=== PATIENT | female | born 1995 | race African-American/Black ===

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

== ENCOUNTER 2017-01-12 16:54 | Inpatient (IN) | payer MEDICAID ==
[2017-01-12] VITALS (8 sets, daily range): BP systolic 124–130; BP diastolic 63–81; PULSE 61–97; RESP 14–28; TEMP 98.2–98.7; O2SAT 97–100
[~2017-01-12] VITALS: Ht 165.1 cm; Wt 55.2 kg
[~2017-01-12 16:54] MED LIST changes: +ASPI325T PO; -AZIT500T2 PO; +FOLI1TAB6 PO; +HYDR500C PO; +KETO10 PO; -MAGICPED SWISH-SPIT; +MONT10TA4 PO; +OXYC1TAB36 PO; +SENN1TAB PO; +VENTAER INH; +WALKER/FOLDING1 MIS
--- NOTE | 2017-01-12 17:03 | PD ---
Physical Exam Time Seen by Provider: 17:01 Narrative 21yo F c/o sickle cell crisis since 1pm. Pain in BUE and BLE. +vomiting, just started. Unknown fevers. Denies chest pain. +SOB. Patient seen in triage. VS reviewed. Awaiting bed placement. Data Data Last Documented VS Vital Signs Date Time Temp Pulse Resp B/P (MAP) Pulse Ox O2 Delivery O2 Flow Rate FiO2 01/12/17 16:57 98.7 88 28 130/69 (89) 100 Room Air MDM Supervised Visit with IRENE: Yahsira Mathur Jan 12, 2017 17:02
[2017-01-12] MEDS ORDERED: SODIUM CHLOR 0.9% 1000 ML INJ 1,000 ML IV ONE ×2 (17:28→19:15)
[2017-01-12] MEDS ORDERED: ONDANSETRON HCL 4 MG/2 ML VIAL IVP ONE (17:30)
[2017-01-12] MEDS ORDERED: HYDROmorphone HCL PF 1 MG/ML VIAL IVS ONE (17:30)
[2017-01-12] MEDS ORDERED: SODIUM CHLORIDE 0.9% FLUSH 10 ML FLUSH IVF PRN (17:30)
--- NOTE | 2017-01-12 17:34 | PD ---
HPI Chief Complaint: Sickle Cell Time Seen by Provider: 17:33 Travel History International Travel<30 days: No Contact w/Intl Traveler<30days: No Traveled to known affect area: No History of Present Illness HPI 21-year-old female with history of sickle cell disease presents to the ED for evaluation of 10/10 left lower extremity and right upper extremity pain. Onset around 1 PM today. Patient endorses accompanying nausea. She denies chest pain , shortness of breath, abdominal pain, dysuria. She states that she's had similar pain crisis in the past. Endorses adequate hydration over the last couple days. PFSH Past Medical History Asthma: Yes Heart Rhythm Problems: No Cancer: No Cardiovascular Problems: No Congestive Heart Failure: No Cerebrovascular Accident: Yes (hx of ministrokes) Endocrine: No Genitourinary: No Immune Disorder: No Musculoskeletal: No Neurologic: Yes (brain sx) Psychiatric: No Reproductive: No Respiratory: Yes Migraines: No Seizures: No Sickle Cell Disease: Yes ?: Not Past Surgical History Abdominal Surgery: Yes (hernia repair 4 years old) Body Medical Devices: peircings Social History Alcohol Use: No Tobacco Use: No Substance Use: No Allergies-Medications (Allergen,Severity, Reaction): Coded Allergies: amoxicillin (Unverified Allergy, Intermediate, hives, 12/27/16) Reported Meds & Prescriptions Reported Meds & Active Scripts Active Bactrim DS (Sulfamethoxazole-Trimethoprim) 800-160 Mg Tab 1 Tab PO BID Senna Plus 8.6-50 mg (Sennosides-Docusate Sodium) 1 Tab Tab 2 Tab PO BID Oxycodone-Acetaminophen 10-325 mg Tab 1 Tab PO Q4H PRN Montelukast (Montelukast Sodium) 10 Mg Tab 10 Mg PO HS Ketorolac (Ketorolac Tromethamine) 10 Mg Tab 10 Mg PO Q6HR Hydrea (Hydroxyurea) 500 Mg Cap 500 Mg PO DAILY Folic Acid 1 Mg Tablet 1 Mg PO DAILY Ventolin Hfa 18 GM Inh (Albuterol Sulfate) 90 Mcg/Act Aer 2 Puff INH Q4H PRN Aspirin 325 Mg Tab 325 Mg PO DAILY Ibuprofen 800 Mg Tab 800 Mg PO Q8H PRN Review of Systems Except as stated in HPI: all other systems reviewed are Neg Physical Exam Narrative GENERAL: Well-nourished, well-developed black female in no acute distress. SKIN: Focused skin assessment warm/dry. HEAD: Normocephalic. EYES: No scleral icterus. No injection or drainage. NECK: Supple, trachea midline. No JVD or lymphadenopathy. CARDIOVASCULAR: Regular rate and rhythm without murmurs, gallops, or rubs. RESPIRATORY: Breath sounds clear and equal bilaterally. No accessory muscle use. GASTROINTESTINAL: Abdomen soft, non-tender, nondistended. MUSCULOSKELETAL: No cyanosis, or edema. Ambulates with a normal gait. FOCUSED RIGHT UPPER EXTREMITY EXAM: 2+ RADIAL PULSE. MILD TENDERNESS TO PALPATION OF THE SHOULDER. STRENGTH 5/5. NEUROVASCULARLY INTACT. FOCUSED LEFT LOWER EXTREMITY EXAM: 2+ DP pulse. Tender to palpation of the right knee. Strength 5/5. Sensation intact to light touch distally. BACK: Nontender without obvious deformity. No CVA tenderness. Data Data Last Documented VS Vital Signs Date Time Temp Pulse Resp B/P (MAP) Pulse Ox O2 Delivery O2 Flow Rate FiO2 01/12/17 22:28 22 99 Nasal Cannula 2.00 01/12/17 22:01 73 01/12/17 16:57 98.7 Orders Orders C-Reactive Protein (Crp) (01/12/17 17:28) Complete Blood Count With Diff (01/12/17 17:28) Comprehensive Metabolic Panel (01/12/17 17:28) Retic Count (01/12/17 17:28) Urinalysis - C+S If Indicated (01/12/17 17:28) Chest, Single Ap (01/12/17 17:28) Ecg Monitoring (01/12/17 17:28) Iv Access Insert/Monitor (01/12/17 17:28) Oximetry (01/12/17 17:28) Ondansetron Inj (Zofran Inj) (01/12/17 17:30) Sodium Chloride 0.9% Flush (Ns Flush) (01/12/17 17:30) Sodium Chlor 0.9% 1000 Ml Inj (Ns 1000 M (01/12/17 17:28) Hydromorphone Pf Inj (Dilaudid Pf Inj) (01/12/17 17:30) Ed Urine Pregnancytest Poc (01/12/17 17:28) Urine Culture (01/12/17 18:10) Hydromorphone Pf Inj (Dilaudid Pf Inj) (01/12/17 19:15) Sodium Chlor 0.9% 1000 Ml Inj (Ns 1000 M (01/12/17 19:15) Sulfamet-Trimeth Ds 800-160 Mg (Bactrim (01/12/17 19:15) Hydromorphone Pf Inj (Dilaudid Pf Inj) (01/12/17 20:30) Hydromorphone Pf Inj (Dilaudid Pf Inj) (01/12/17 21:45) Admit To Inpatient (01/12/17 ) Admit Order (Ed Use Only) (01/12/17 22:29) Vital Signs (Adult) Q4H (01/12/17 22:29) Activity Oob With Assistance (01/12/17 22:29) Corrosion Prevention Metal Sprayer / Telemetry .CONTINUOUS (01/12/17 22:29) Diet Heart Healthy (01/13/17 Breakfast) Sodium Chloride 0.9% Flush (Ns Flush) (01/12/17 22:30) Sodium Chloride 0.9% Flush (Ns Flush) (01/13/17 09:00) Ondansetron Inj (Zofran Inj) (01/12/17 22:30) Basic Metabolic Panel (Bmp) (01/13/17 06:00) Complete Blood Count With Diff (01/13/17 06:00) Case Management Consult (01/12/17 22:29) Naloxone Inj (Narcan Inj) (01/12/17 22:30) Inpatient Certification (01/12/17 ) Sodium Chlor 0.9% 1000 Ml Inj (Ns 1000 M (01/12/17 22:30) Hydromorphone Pf Inj (Dilaudid Pf Inj) (01/12/17 22:45) Labs Laboratory Tests Test 01/12/17 18:00 01/12/17 18:10 White Blood Count 12.5 TH/MM3 Red Blood Count 2.14 MIL/MM3 Hemoglobin 8.4 GM/DL Hematocrit 23.8 % Mean Corpuscular Volume 111.4 FL Mean Corpuscular Hemoglobin 39.2 PG Mean Corpuscular Hemoglobin Concent 35.2 % Red Cell Distribution Width 20.1 % Platelet Count 309 TH/MM3 Mean Platelet Volume 8.5 FL Neutrophils (%) (Auto) 80.5 % Lymphocytes (%) (Auto) 12.4 % Monocytes (%) (Auto) 6.8 % Eosinophils (%) (Auto) 0.0 % Basophils (%) (Auto) 0.3 % Neutrophils # (Auto) 10.1 TH/MM3 Lymphocytes # (Auto) 1.6 TH/MM3 Monocytes # (Auto) 0.9 TH/MM3 Eosinophils # (Auto) 0.0 TH/MM3 Basophils # (Auto) 0.0 TH/MM3 CBC Comment AUTO DIFF Differential Comment AUTO DIFF CONFIRMED Platelet Estimate NORMAL Platelet Morphology Comment NORMAL Sickle Cells 1+ Target Cells 1+ Stomatocytes 1+ Reticulocyte Count 6.1 % Absolute Reticulocyte Count 131.3 MIL/L Blood Urea Nitrogen 6 MG/DL Creatinine 0.65 MG/DL Random Glucose 117 MG/DL Total Protein 7.9 GM/DL Albumin 4.1 GM/DL Calcium Level 8.8 MG/DL Alkaline Phosphatase 93 U/L Aspartate Amino Transf (AST/SGOT) 36 U/L Alanine Aminotransferase (ALT/SGPT) 35 U/L Total Bilirubin 1.6 MG/DL Sodium Level 139 MEQ/L Potassium Level 3.5 MEQ/L Chloride Level 105 MEQ/L Carbon Dioxide Level 24.7 MEQ/L Anion Gap 9 MEQ/L Estimat Glomerular Filtration Rate 142 ML/MIN C-Reactive Protein LESS THAN 0.29 MG/DL Urine Color YELLOW Urine Turbidity HAZY Urine pH 7.0 Urine Specific Holden 1.013 Urine Protein NEG mg/dL Urine Glucose (UA) NEG mg/dL Urine Ketones NEG mg/dL Urine Occult Blood NEG Urine Nitrite POS Urine Bilirubin NEG Urine Urobilinogen 2.0 MG/DL Urine Leukocyte Esterase SMALL Urine RBC LESS THAN 1 /hpf Urine WBC 3 /hpf Urine Squamous Epithelial Cells 2 /hpf Urine Bacteria MANY /hpf Microscopic Urinalysis Comment CULTURE INDICATED MDM Medical Decision Making Medical Screen Exam Complete: Yes Emergency Medical Condition: Yes Differential Diagnosis sickle cell pain crisis versus dehydration versus bone infarct versus opioid withdrawal versus other Narrative Course 21-year-old female with history of sickle cell disease presents to the ED for evaluation of 10/10 left lower extremity and right upper extremity pain. Onset around 1 PM today. Patient endorses accompanying nausea. She denies chest pain , shortness of breath, abdominal pain, dysuria. She states that she's had similar pain crisis in the past. Endorses adequate hydration over the last couple days. Vitals reviewed. Physical exam reveals mild tenderness to palpation of the right shoulder and the left knee is otherwise unremarkable. IV is established. Patient was administered 1 L of normal saline and 1 mg Dilaudid. CBC: WBC 12.5. RBCs 2.14. Hemoglobin 8.4. Hematocrit 23.8. Reticulocyte count 6.1. Absolute reticulocyte count 131.3 CMP: No concerning abnormalities. UA: Nitrate positive. Small leukocyte esterase. Many bacteria. She was administered single dose of Bactrim DS. On recheck patient states pain is only minimally improved. She was administered second liter of fluids and a second milligram of Dilaudid. On third recheck patient states her pain is 5/10. She was administered 0.5 mg of Dilaudid. On fourth recheck patient states her pain is now a 7. She was administered 0.5 mg Dilaudid. The nurse reports that the patient states that "whatever you gave me made my pain worse." This is sickle cell pain crisis, intractable pain, UTI. I have observed her to ambulate normally twice since she 's been here. I have low suspicion for a bone infarct. She'll be admitted for pain control. I spoke with Dr. Pereira who agrees to accept the patient. Please see medicine notes for disposition. Additional Instructions: Rest, hydrate. Resume normal, gentle activities as tolerated. Take all antibiotics as prescribed. Return to the ED for any urgent or emergent medical condition. Med/Other Pt SpecificInfo: Prescription(s) given Scripts Sulfamethoxazole-Trimethoprim (Bactrim DS) 800-160 Mg Tab 1 TAB PO BID for Infection, #6 TAB 0 Refills Prov: Nessa Billings DO 01/12/17 Bere Cabezas Jan 12, 2017 17:34
--- NOTE | 2017-01-12 17:51 | RADRPT ---
EXAM DATE/TIME: 01/12/2017 17:41 [place] COMPARISON: CHEST SINGLE AP, October 23, 2016, 13:51. INDICATIONS : Chest pain, overall body pain. Sickle cell. MEDICAL HISTORY : Sickle Cell disease. CVA. Asthma. Blood dyscrasias. SURGICAL HISTORY : Brain surgery. Hernia repair. ENCOUNTER: Initial ACUITY: 1 day PAIN SCORE: 5/10 LOCATION: Bilateral chest FINDINGS: A single view of the chest demonstrates the lungs to be symmetrically aerated without evidence of mas s, infiltrate or effusion. The cardiomediastinal contours are unremarkable. Osseous structures are intact. The left-sided Cvmeba-h-Lgyf catheter remains in place. There are bilateral nipple rings note d. CONCLUSION: No acute disease. Matt Carpio MD on January 12, 2017 at 17:49 Board Certified Radiologist. This report was verified electronically.
[2017-01-12 18:29] LABS: BACTERIA, URINE MANY /hpf; BLOOD, URINE NEG (NEG); COMMENT (UR) CULTURE INDICATED; CULTURE IF INDICATED CULTURE INDICATED; GLUCOSE,URINE NEG (NEG); KETONE, URINE NEG (NEG); NITRITE,URINE POS (NEG); SQUAMOUS EPITHELIAL CELL URINE 2 /hpf (0-5); URINE COLOR YELLOW (YELLW/STRAW)
[2017-01-12 18:41] LABS: AUTOMATED NEUTROPHIL # 10.1 TH/MM3 (1.8-7.7); BASOPHIL % 0.3 % (0.0-2.0); HEMATOCRIT 23.8 % (35.0-46.0); LYMPH % 12.4 % (9.0-44.0); LYMPHOCYTE # 1.6 TH/MM3 (1.0-4.8); MEAN CELL VOLUME 111.4 FL (80.0-100.0); MEAN CORPUSCULAR HEMOGLOBIN 39.2 PG (27.0-34.0); MEAN CORPUSCULAR HGB CONC 35.2 % (32.0-36.0); MONO % 6.8 % (0.0-8.0); NEUT % 80.5 % (16.0-70.0); PLATELET COUNT 309 TH/MM3 (150-450); RED BLOOD COUNT 2.14 MIL/MM3 (4.00-5.30); RED CELL DISTRIBUTION WIDTH 20.1 % (11.6-17.2); RETIC % 6.1 % (0.4-3.0); WHITE BLOOD COUNT 12.5 TH/MM3 (4.0-11.0)
[2017-01-12 18:48] LABS: HEMO FLAGS AUTO DIFF; REVIEW FLAG AUTO DIFF
[2017-01-12 18:49] LABS: ALT (GPT) 35 U/L (9-42); ANION GAP 9 MEQ/L (5-15); AST (GOT) 36 U/L (16-38); BICARBONATE 24.7 MEQ/L (21.0-32.0); BLOOD UREA NITROGEN 6 MG/DL (7-18); CHLORIDE 105 MEQ/L (98-107); GLOMERULAR FILTRATION RATE 142 ML/MIN (>89); POTASSIUM 3.5 MEQ/L (3.5-5.1); SODIUM (NA) 139 MEQ/L (136-145)
[2017-01-12 18:51] LABS: ALKALINE PHOSPHATASE 93 U/L (45-117); TOTAL BILIRUBIN ADULT 1.6 MG/DL (0.2-1.0)
[2017-01-12] MEDS ORDERED: HYDROmorphone HCL PF 1 MG/ML VIAL IV PUSH ONE ×3 (19:15→21:45)
[2017-01-12] MEDS ORDERED: SULFAMETHOXAZOLE-TRIMETHOPRIM DS 800-160 MG TAB PO ONE (19:15)
[2017-01-12 19:33] LABS: TARGET CELLS 1+ (NORMAL)
[2017-01-12 19:34] LABS: PLATELET ESTIMATE SMEAR NORMAL (NORMAL); PLATELET MORPHOLOGY NORMAL (NORMAL); SCAN/DIFF AUTO DIFF CONFIRMED; SICKLE CELLS 1+ (NORMAL); STOMATOCYTES 1+ (NORMAL)
[2017-01-12] MEDS ORDERED: BACT800T5 PO (20:21)
[2017-01-12] MEDS ORDERED: ONDANSETRON HCL 4 MG/2 ML VIAL IVP PRN (22:30)
[2017-01-12] MEDS ORDERED: NALOXONE HCL 0.4 MG/ML AMP IV PRN (22:30)
[2017-01-12] MEDS: SODIUM CHLOR 0.9% 1000 ML INJ 1,000 ML IV SCH (22:44)
[2017-01-12] MEDS ORDERED: HYDROmorphone HCL PF 1 MG/ML VIAL IV PUSH PRN (22:45)
[2017-01-13] VITALS (9 sets, daily range): BP systolic 134–176; BP diastolic 68–85; PULSE 75–97; RESP 17–18; TEMP 98–99.2; O2SAT 98–100
[2017-01-13] MEDS ORDERED: ACETAMINOPHEN/HYDROcodone 325 MG/5 MG TAB PO PRN (01:30)
[2017-01-13] MEDS ORDERED: HYDROmorphone HCL PF 1 MG/ML VIAL IV PUSH ONE (01:30)
--- NOTE | 2017-01-13 04:58 | HHI.HP ---
[facility] Service [facility] Hospitalists Primary Care Physician Non-Staff Admission Diagnosis sickle cell crisis, intractable pain, UTI Diagnoses: Chief Complaint: Whole body pain Travel History International Travel<30 Days: No Contact w/Intl Traveler <30 Da: No Traveled to Known Affected Are: No History of Present Illness 21-year-old female with a history of sickle cell anemia, mini strokes with right -sided residual, and asthma presented to the ED with complaints of pain. Patient describes the pain as an aching 10 out of 10 pain all over worse in her knees. Patient states for the last 6 months she has been having more sickle cell crisis pain and she has in the past. Prior to this she was getting prophylactic blood transfusions, that were discontinued due to iron overload. She denies any other associated symptoms, denies any chest pain, shortness of breath, fever or chills. She states the Dilaudid is not helping and that usually morphine helps better. Her grinder outside diameter that she follows is in [place]. Past Family Social History Past Medical History Sickle cell Asthma Mini strokes Past Surgical History Patient had brain surgery when she was in fourth or fifth grade. Umbilical hernia repair Reported Medications Reported Meds & Active Scripts Active Bactrim DS (Sulfamethoxazole-Trimethoprim) 800-160 Mg Tab 1 Tab PO BID Senna Plus 8.6-50 mg (Sennosides-Docusate Sodium) 1 Tab Tab 2 Tab PO BID Oxycodone-Acetaminophen 10-325 mg Tab 1 Tab PO Q4H PRN Montelukast (Montelukast Sodium) 10 Mg Tab 10 Mg PO HS Ketorolac (Ketorolac Tromethamine) 10 Mg Tab 10 Mg PO Q6HR Hydrea (Hydroxyurea) 500 Mg Cap 500 Mg PO DAILY Folic Acid 1 Mg Tablet 1 Mg PO DAILY Ventolin Hfa 18 GM Inh (Albuterol Sulfate) 90 Mcg/Act Aer 2 Puff INH Q4H PRN Aspirin 325 Mg Tab 325 Mg PO DAILY Ibuprofen 800 Mg Tab 800 Mg PO Q8H PRN Allergies: Coded Allergies: amoxicillin (Unverified Allergy, Intermediate, hives, 12/27/16) Active Ordered Medications Current Medications Medications (Trade) Dose Ordered Sig/Jessy Route Start Time Stop Time Status Last Admin (NS Flush) 2 ml UNSCH PRN IV FLUSH 01/12/17 22:30 (NS Flush) 2 ml BID IV FLUSH 01/13/17 09:00 (Zofran Inj) 4 mg Q6H PRN IVP 01/12/17 22:30 (Narcan Inj) 0.4 mg UNSCH PRN IV 01/12/17 22:30 Sodium Chloride 1,000 ml @ 125 mls/hr Q8H IV 01/12/17 22:30 01/12/17 22:44 (Dilaudid Pf Inj) 0.5 mg Q4H PRN IV PUSH 01/12/17 22:45 01/12/17 23:35 (Bradford 5-325 Mg) 1 tab Q4H PRN PO 01/13/17 01:30 01/13/17 02:38 Family History Mom:hypertension Maternal grandmother had breast cancer twice and diabetes. Maternal grandfather of pancreatic cancer, also had diabetes, hypertension , CABG. Social History Patient denies any tobacco, alcohol or illicit drug use Physical Exam Vital Signs Vital Signs Date Time Temp Pulse Resp B/P (MAP) Pulse Ox O2 Delivery O2 Flow Rate FiO2 01/13/17 03:42 16 01/13/17 02:42 16 01/13/17 01:05 16 01/12/17 23:54 01/12/17 23:34 97 18 126/63 (84) 100 Nasal Cannula 2.00 01/12/17 22:35 18 01/12/17 22:28 22 99 Nasal Cannula 2.00 01/12/17 22:01 73 24 128/70 (89) 97 Room Air 01/12/17 21:25 20 01/12/17 20:55 90 20 124/81 (95) 98 Room Air 01/12/17 20:00 19 01/12/17 19:25 69 25 128/72 (90) 100 Room Air 01/12/17 18:05 (91) Room Air 01/12/17 18:01 77 12 98 01/12/17 18:01 61 14 129/72 (91) 100 01/12/17 16:57 98.7 88 28 130/69 (89) 100 Room Air Physical Exam GENERAL: This is a well-nourished, thin patient who appears to be in the pain SKIN: No rashes, ecchymoses or lesions. Cool and dry. HEAD: Atraumatic. Normocephalic. EYES: Pupils equal round and reactive. Extraocular motions intact. ENT: Nose without bleeding, purulent drainage or septal hematoma. Airway patent. NECK: Trachea midline. No JVD or lymphadenopathy. Supple, nontender, no meningeal signs. CARDIOVASCULAR: Regular rate and rhythm without murmurs, gallops, or rubs. RESPIRATORY: Clear to auscultation. Breath sounds equal bilaterally. No wheezes , rales, or rhonchi. GASTROINTESTINAL: Abdomen soft, non-tender, nondistended. MUSCULOSKELETAL: Extremities without clubbing, cyanosis, or edema. Bilateral knee pain No calf tenderness. NEUROLOGICAL: Awake and alert.Motor and sensory grossly within normal limits. Normal speech. Laboratory Laboratory Tests Test 01/12/17 18:00 01/12/17 18:10 White Blood Count 12.5 Red Blood Count 2.14 Hemoglobin 8.4 Hematocrit 23.8 Mean Corpuscular Volume 111.4 Mean Corpuscular Hemoglobin 39.2 Mean Corpuscular Hemoglobin Concent 35.2 Red Cell Distribution Width 20.1 Platelet Count 309 Mean Platelet Volume 8.5 Neutrophils (%) (Auto) 80.5 Lymphocytes (%) (Auto) 12.4 Monocytes (%) (Auto) 6.8 Eosinophils (%) (Auto) 0.0 Basophils (%) (Auto) 0.3 Neutrophils # (Auto) 10.1 Lymphocytes # (Auto) 1.6 Monocytes # (Auto) 0.9 Eosinophils # (Auto) 0.0 Basophils # (Auto) 0.0 CBC Comment AUTO DIFF Differential Comment AUTO DIFF CONFIRMED Platelet Estimate NORMAL Platelet Morphology Comment NORMAL Sickle Cells 1+ Target Cells 1+ Stomatocytes 1+ Reticulocyte Count 6.1 Absolute Reticulocyte Count 131.3 Blood Urea Nitrogen 6 Creatinine 0.65 Random Glucose 117 Total Protein 7.9 Albumin 4.1 Calcium Level 8.8 Alkaline Phosphatase 93 Aspartate Amino Transf (AST/SGOT) 36 Alanine Aminotransferase (ALT/SGPT) 35 Total Bilirubin 1.6 Sodium Level 139 Potassium Level 3.5 Chloride Level 105 Carbon Dioxide Level 24.7 Anion Gap 9 Estimat Glomerular Filtration Rate 142 C-Reactive Protein LESS THAN 0.29 Urine Color YELLOW Urine Turbidity HAZY Urine pH 7.0 Urine Specific [place] 1.013 Urine Protein NEG Urine Glucose (UA) NEG Urine Ketones NEG Urine Occult Blood NEG Urine Nitrite POS Urine Bilirubin NEG Urine Urobilinogen 2.0 Urine Leukocyte Esterase SMALL Urine RBC LESS THAN 1 Urine WBC 3 Urine Squamous Epithelial Cells 2 Urine Bacteria MANY Microscopic Urinalysis Comment CULTURE INDICATED Date/Time Source Procedure Growth Status 01/12/17 18:10 Urine Random Urine Urine Culture Pending Worksheet Result Diagram: 01/12/17 1800 01/12/17 1800 Imaging Last Impressions Chest X-Ray 01/12/17 1728 Signed Impressions: Service Date/Time: December 17:41 - CONCLUSION: No acute disease. MD Jose Saldana VTE Risk Assessment Jose VTE Risk Assessment: No/Low Risk (score <= 1) Caprini Risk Assessment Model Point Value = 1 Point Value = 2 Point Value = 3 Point Value = 5 Age 41-60 Minor surgery BMI > 25 kg/m2 Swollen legs Varicose veins or History of unexplained or recurrent spontaneous Oral contraceptives or hormone replacement Sepsis (< 1 month) Serious lung disease, including pneumonia (< 1 month) Abnormal pulmonary function Acute myocardial infarction Congestive heart failure (< 1 month) History of inflammatory bowel disease Medical patient at bed rest Age 61-74 Arthroscopic surgery Major open surgery (> 45 min) Laparoscopic surgery (> 45 min) Malignancy Confined to bed (> 72 hours) Immobilizing plaster cast Central venous access Age >= 75 History of VTE Family history of VTE Factor V Leiden Prothrombin [id number] Lupus anticoagulant Anticardiolipin antibodies Elevated serum homocysteine Heparin-induced thrombocytopenia Other congenital or acquired thrombophilia Stroke (< 1 month) Elective arthroplasty Hip, pelvis, or leg fracture Acute spinal cord injury (< 1 month) Prophylaxis Regimen Total Risk Factor Score Risk Level Prophylaxis Regimen 0-1 Low Early ambulation 2 Moderate Order ONE of the following: *Sequential Compression Device (SCD) *Heparin 5000 units SQ BID 3-4 Higher Order ONE of the following medications: *Heparin 5000 units SQ TID *Enoxaparin/Lovenox 40 mg SQ daily (WT < 150 kg, CrCl > 30 mL/min) *Enoxaparin/Lovenox 30 mg SQ daily (WT < 150 kg, CrCl > 10-29 mL/min) *Enoxaparin/Lovenox 30 mg SQ BID (WT < 150 kg, CrCl > 30 mL/min) AND/OR *Sequential Compression Device (SCD) 5 or more Highest Order ONE of the following medications: *Heparin 5000 units SQ TID (Preferred with Epidurals) *Enoxaparin/Lovenox 40 mg SQ daily (WT < 150 kg, CrCl > 30 mL/min) *Enoxaparin/Lovenox 30 mg SQ daily (WT < 150 kg, CrCl > 10-29 mL/min) *Enoxaparin/Lovenox 30 mg SQ BID (WT < 150 kg, CrCl > 30 mL/min) AND *Sequential Compression Device (SCD) Assessment and Plan Problem List: (1) Sickle cell pain crisis ICD Code: D57.00 - Hb-SS disease with crisis, unspecified Status: Acute (2) Asthma ICD Code: J45.909 - Unspecified asthma, uncomplicated Status: Chronic (3) Urinary tract infection ICD Code: N39.0 - Urinary tract infection, site not specified Status: Acute Assessment and Plan 21-year-old female with a history of sickle cell anemia, mini strokes with right -sided residual, and asthma presented to the ED with complaints of pain. Sickle cell pain crisis, hemoglobin stable, hemoglobin stable at 8.4 -Pain management with IV morphine and by mouth Percocet, and Toradol for breakthrough pain -IVF for hydration -Resume home medications -Will consult hematology if if there is a decrease in hemoglobin or no improvement pain UTI, with associated leukocytosis, WBC is 12.5, abnormal UA with small amount of leukocyte esterase and positive nitrates -Urine culture pending -Continue Bactrim by mouth bid Asthma, chronic -Reorder home medications DVT prophylaxis: SCDs Discussed Condition With Patient and patient's mother Physician Certification 2 Midnight Certification Type: Admission for Inpatient Services Order for Inpatient Services The services are ordered in accordance with Medicare regulations or non- Medicare payer requirements, as applicable. In the case of services not specified as inpatient-only, they are appropriately provided as inpatient services in accordance with the 2-midnight benchmark. Estimated LOS (days): 2 days is the estimated time the patient will need to remain in the hospital, assuming treatment plan goals are met and no additional complications. Post-Hospital Plan: Home Problem Qualifiers (1) Urinary tract infection: Qualified Codes: N39.0 - Urinary tract infection, site not specified Pilar Gupta Jan 13, 2017 04:58
[2017-01-13] MEDS ORDERED: ALBUTEROL SULFATE 90 MCG/ACT HFA 8 GM INHALER INH PRN (05:00)
[2017-01-13] MEDS ORDERED: MORPHINE SULFATE 4 MG/ML INJ IV PUSH PRN (05:00)
[2017-01-13] MEDS: SODIUM CHLOR 0.9% 1000 ML INJ 1,000 ML IV SCH (05:20)
[2017-01-13] MEDS: KETOROLAC TROMETHAMINE 30 MG/ML (IVP) VIAL IV PUSH PRN ×3 (06:20→22:30)
[2017-01-13] MEDS: oxyCODONE/ACETAMINOPHEN 10 MG/325 MG TAB PO PRN ×3 (06:23→18:43)
[2017-01-13 07:46] LABS: AUTOMATED NEUTROPHIL # 11.2 TH/MM3 (1.8-7.7); BASOPHIL # 0.1 TH/MM3 (0-0.2); BASOPHIL % 0.4 % (0.0-2.0); EOSINOPHIL % 0.2 % (0.0-4.0); HEMATOCRIT 24.9 % (35.0-46.0); LYMPH % 12.8 % (9.0-44.0); LYMPHOCYTE # 1.9 TH/MM3 (1.0-4.8); MEAN CELL VOLUME 112.3 FL (80.0-100.0); MEAN CORPUSCULAR HGB CONC 33.9 % (32.0-36.0); MONO % 11.2 % (0.0-8.0); NEUT % 75.4 % (16.0-70.0); PLATELET COUNT 286 TH/MM3 (150-450); RED BLOOD COUNT 2.22 MIL/MM3 (4.00-5.30); RED CELL DISTRIBUTION WIDTH 19.8 % (11.6-17.2); WHITE BLOOD COUNT 14.9 TH/MM3 (4.0-11.0)
[2017-01-13 07:54] LABS: HEMO FLAGS AUTO DIFF
[2017-01-13 08:05] LABS: POTASSIUM 3.7 MEQ/L (3.5-5.1)
[2017-01-13] MEDS: SODIUM CHLORIDE 0.9% FLUSH 10 ML FLUSH IV FLUSH SCH ×2 (08:06→22:29)
[2017-01-13] MEDS: SULFAMETHOXAZOLE-TRIMETHOPRIM DS 800-160 MG TAB PO SCH ×2 (08:06→23:31)
[2017-01-13] MEDS: ASPIRIN 325 MG TAB PO SCH (08:06)
[2017-01-13] MEDS: FOLIC ACID 1 MG TAB PO SCH (08:06)
[2017-01-13] MEDS: HYDROXYUREA 500 MG CAP PO SCH (08:08)
[2017-01-13] MEDS: MORPHINE SULFATE 4 MG/ML INJ IV PUSH PRN ×5 (08:40→23:24)
--- NOTE | 2017-01-13 08:44 | HHI.PR ---
Addendum to Inpatient Note Addendum Reason: Additional Documentation Additional Information Pt states that she continues to have pain w minimal improvement since admission. 09/21 but hasn't been able to get out of bed due to pain, no appetite. Pain mainly in knees and upper extremities. No chest pain, no nausea or vomiting. Family at bedside, tell me that pt used to get blood transfusion every other month however this was stopped and since she has been getting frequent attacks. on exam, she is laying in bed, looks miserable and tired, barely moves. HR mildly tachycardic, lungs are clear, abdomen soft NT. She does move her extremities but very slowly secondary to pain A/P 21-year-old female with a history of sickle cell anemia, mini strokes with right -sided residual, and asthma presented to the ED with complaints of pain. Sickle cell pain crisis, hemoglobin stable, hemoglobin stable at 8.4 -Pain management with IV morphine and by mouth Percocet, and Toradol for breakthrough pain -continue IVF for hydration, encouraged PO intake. She is on her home meds as well. 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 Hb stable at 8.4 today. UTI, with associated leukocytosis, WBC is 14.9 today, abnormal UA with small amount of leukocyte esterase and positive nitrates -Urine culture pending -Continue Bactrim by mouth bid Asthma, chronic -on home meds. Mamie Francis MD Jan 13, 2017 08:44
[2017-01-13 08:59] LABS: BANDS 3 % (0-6); CORRECTED NUCLEATED RBC 4 /100 WBC (0-0); NEUTROPHIL # MANUAL DIFF 11.6 TH/MM3 (1.8-7.7); POLYS (SEG NEUTROPHILS) 75 % (16-70); WBC DIFF SAMPLE 100
[2017-01-13 09:00] LABS: OVALOCYTES 1+ (NORMAL); PLATELET ESTIMATE SMEAR NORMAL (NORMAL); PLATELET MORPHOLOGY NORMAL (NORMAL); SCAN/DIFF FINAL DIFF MANUAL; SICKLE CELLS 1+ (NORMAL); TARGET CELLS 1+ (NORMAL)
[2017-01-13 09:01] LABS: HOWELL-JOLLY BODIES PRESENT (NONE SEEN)
[2017-01-13] MEDS: ENOXAPARIN SODIUM 40 MG/0.4 ML SYRINGE SQ SCH (12:49)
[2017-01-13] MEDS: SODIUM CHLOR 0.45% 1000 ML INJ 1,000 ML IV SCH ×2 (12:51→23:23)
--- NOTE | 2017-01-13 17:00 | MB ---
cc: BLANCA YEE MD DATE OF CONSULTATION 01/13/17 DATE OF 1995. REASON FOR CONSULTATION Sickle cell pain crisis. CHIEF COMPLAINT The patient reports severe pain in her arms from the shoulders down to her wrists on both sides as well as her legs. She reports the pain started suddenly about one day ago. HISTORY OF PRESENT ILLNESS Ms. Zepeda is a 21-year-old female. She is originally from [place], [place] and moved to the [facility] about a year ago to attend college. 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 Per the patient's mother and grandmother, Ms. Zepeda had been on exchange transfusions every other month for much of the past 10 years. They describe the exchange transfusions as the patient having one unit taken off, getting IV fluids and then subsequently being transfused a unit. 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 She has been on iron chelators. Because of her iron overload, the soccer coach at [place] recommended exchange transfusions be discontinued and initiate the patient on hydroxyurea which she takes at a dose of 1500 mg alternating with 2000 mg daily. She is also on an oral iron chelating agent. Despite hydroxyurea, she does require frequent ER visits and hospitalizations for pain crises. In the year 2017, she has had ER visit/hospitalizations un August, October and now in December. I have been asked to see the patient for further management and optimization of care of her pain crisis. The pain crisis at this time is seemingly uncomplicated by acute ischemic stroke, acute chest crisis, avascular necrosis or other acute issues. PAST MEDICAL HISTORY 1. Hemoglobin sickle-cell disease. 2. Ischemic stroke. 3. Asthma. PAST SURGICAL HISTORY 1. Craniotomy for ischemic stroke. 2. Umbilical hernia repair. 3. Port placement. FAMILY HISTORY Parents with sickle cell trait. Mother with hypertension, maternal grandmother with breast cancer and diabetes. Maternal grandfather had pancreas cancer. SOCIAL HISTORY Denies alcohol, tobacco, illicit drug abuse. 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 ALLERGIES AMOXICILLIN MEDICATIONS Current inpatient - 1. Half-normal saline at 100 cc/hour. 2. Albuterol HFA inhaler 2 puffs every 4 hours as needed for wheezing. 3. Aspirin 325 mg daily. 4. Lovenox 40 mg subcu once daily 5. Folic acid 1 mg p.o. daily. 6. Hydroxyurea 500 mg once daily. 7. Singulair 10 mg p.o. daily. 8. Morphine sulfate 2 mg IV q.2 h as needed for pain over a scale of five. 9. Naloxone 0.4 mg IV as needed for over sedation. 10. Zofran 4 mg IV q. 6 hours as needed for nausea and vomiting. 11. Oxycodone/acetaminophen 10/325 1 tablet in 4 hours as needed for pain. 12. Bactrim double-strength 1 tablet every 12 hours. REVIEW OF SYSTEMS Her major complaints are that of pain. She reports fatigue, denies fevers or chills. She denies any focal sensory or motor deficits. She denies blurry vision. She denies pain in the throat or difficulty swallowing. She denies sinusitis. RESPIRATORY: She reports exertional dyspnea. Denies cough, hemoptysis, pleuritic chest pain. CARDIOVASCULAR: Reports palpitations. Denies angina-like chest pain, PND, orthopnea. GI: Denies nausea, vomiting, diarrhea, hematochezia or melena : No complaints of dysuria, hematuria, urinary incontinence. LOWER EXTREMITIES: Reports pain in her legs, hips MUSCULOSKELETAL: Reports pain in her arms. PHYSICAL EXAMINATION VITAL SIGNS: Temperature 98 degrees Fahrenheit, heart rate 75 beats a minute, respiratory rate 18, blood pressure 142/68, O2 sats 100% on 2 liters nasal cannula. GENERAL APPEARANCE: Mr. Zepeda is a young female. She is laying in bed. She appears to be in pain. She speaks with her eyes closed most of the time. Her mother and grandmother do most of the talking. They are at bedside. HEENT: Head atraumatic, normocephalic, conjunctivae are pale, sclerae are mildly icteric, EOMI, PERRLA, oral exam no pharyngeal erythema. NECK: No palpable cervical or supraclavicular lymphadenopathy. RESPIRATORY: Good air movement bilaterally over the upper and middle lung zones, decreased bibasilar breath sounds. CARDIOVASCULAR: Borderline tachycardiac, loud heart sounds S1-S2. No obvious murmurs, rubs or gallops. ABDOMEN: Thin belly, soft and nontender, nondistended, no palpable organ enlargement. EXTREMITIES: No pretibial edema or calf tenderness. ACADEMIC ADMINISTRATOR: No focal sensory motor deficits. LABORATORY FINDINGS Blood work dated 01/13/2017: WBC count 14.9, hemoglobin 8.4 gm/dl, hematocrit 24.9%, MCV 112, Platelet count is 286. Absolute neutrophil count is 11.6. Chemistries: Sodium 137, potassium 3.7, chloride 104, bicarb 26, BUN four, creatinine 0.55, random glucose 98, calcium 8.2. Ferritin level dated 10/24/2016 was 5935. Total bilirubin of 1.6. AST 36, ALT 35, alkaline phosphatase 93. Albumin 4.1. IMAGING STUDIES X-ray of the chest dated 01/12/2017 indicated no acute disease. ASSESSMENT Ms. Zepeda is a pleasant 21-year-old female with hemoglobin sickle-cell disease. She is prone to frequent pain crises. 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 She does not have any reported history of acute chest syndrome or avascular necrosis. She comes in today with what appears to be a fairly uncomplicated pain crisis likely provoked by urinary tract infection. The patient has been under the care of the pediatric soccer coach at the [facility] in [place], [place]. She presently lives in [place] but commutes to and from [facility] in [place] to meet with her soccer coach. She is presently a student here at [employer]. RECOMMENDATIONS 1. Sickle cell pain crisis; uncomplicated by acute stroke, acute chest syndrome or avascular necrosis: I would recommend continuation of supportive care with IV fluid hydration with a hypotonic solution. I have also initiated her on incentive spirometry as these have been shown to decrease hospitalization length as well as improve pain control. The patient ought to continue short-acting intravenous opioids alternating with oral short-acting opioids. If her pain crisis persists for prolonged period of time, she may benefit from the addition of a long-acting opioid as well. 2. She will resume hydroxyurea upon discharge at the usual dose. 3. Iron overload: Continue iron chelation therapy. 4. The patient has been offered outpatient hematology followup with adult hematology at [place]. Her family will consider this, but they primarily wish to be followed by their pediatric soccer coach in [place] with as needed visits with one of the adult hematologists in [facility] [place] [facility]. MD ALICIA Sanchez /10:59 AM /4:31 PM
[2017-01-13] MEDS: MONTELUKAST SODIUM 10 MG TAB PO SCH (23:31)
[2017-01-14] VITALS (7 sets, daily range): BP systolic 113–155; BP diastolic 59–88; PULSE 93–128; RESP 14–17; TEMP 98.1–99.8; O2SAT 90–100
[2017-01-14] MEDS: MORPHINE SULFATE 4 MG/ML INJ IV PUSH PRN ×6 (02:35→20:34)
[2017-01-14] MEDS: KETOROLAC TROMETHAMINE 30 MG/ML (IVP) VIAL IV PUSH PRN (04:56)
[2017-01-14 06:09] LABS: BASOPHIL # 0.1 TH/MM3 (0-0.2); BASOPHIL % 0.4 % (0.0-2.0); EOSINOPHIL # 0.1 TH/MM3 (0-0.4); EOSINOPHIL % 0.6 % (0.0-4.0); HEMATOCRIT 25.5 % (35.0-46.0); LYMPH % 8.1 % (9.0-44.0); LYMPHOCYTE # 1.2 TH/MM3 (1.0-4.8); MEAN CELL VOLUME 111.8 FL (80.0-100.0); MONO % 6.5 % (0.0-8.0); NEUT % 84.4 % (16.0-70.0); PLATELET COUNT 249 TH/MM3 (150-450); RED BLOOD COUNT 2.28 MIL/MM3 (4.00-5.30); RED CELL DISTRIBUTION WIDTH 18.1 % (11.6-17.2); WHITE BLOOD COUNT 14.2 TH/MM3 (4.0-11.0)
[2017-01-14 06:25] LABS: HEMO FLAGS AUTO DIFF
[2017-01-14 06:26] LABS: BICARBONATE 25.9 MEQ/L (21.0-32.0); POTASSIUM 4.1 MEQ/L (3.5-5.1)
[2017-01-14 08:23] LABS: CORRECTED NUCLEATED RBC 1 /100 WBC (0-0); EOSINOPHILS 1 % (0-4); NEUTROPHIL # MANUAL DIFF 11.9 TH/MM3 (1.8-7.7); POLYS (SEG NEUTROPHILS) 84 % (16-70); WBC DIFF SAMPLE 100
[2017-01-14 08:24] LABS: HOWELL-JOLLY BODIES PRESENT (NONE SEEN); PLATELET ESTIMATE SMEAR NORMAL (NORMAL); PLATELET MORPHOLOGY NORMAL (NORMAL); SCAN/DIFF FINAL DIFF MANUAL
[2017-01-14 08:25] LABS: TARGET CELLS 1+ (NORMAL)
[2017-01-14] MEDS: SODIUM CHLORIDE 0.9% FLUSH 10 ML FLUSH IV FLUSH SCH ×2 (09:00→20:34)
--- NOTE | 2017-01-14 09:04 | HHI.PR ---
Subjective Remarks Pt still having a lot of pain, barely getting out of bed except for going to the restroom. Pt denies any CP/SOB but still has pain in her arms and knees. Family at bedside state that they have been encouraging her to drink but she is not eating Objective Vitals Vital Signs Date Time Temp Pulse Resp B/P (MAP) Pulse Ox O2 Delivery O2 Flow Rate FiO2 01/14/17 04:00 99.1 107 16 136/80 (98) 100 01/14/17 04:00 100 01/14/17 00:00 99.8 93 17 155/77 (103) 100 01/14/17 00:00 103 01/13/17 20:00 99.2 93 18 176/85 (115) 98 01/13/17 20:00 95 01/13/17 16:25 98.5 87 17 138/74 (95) 100 01/13/17 16:00 94 01/13/17 14:35 98 Nasal Cannula 2.00 01/13/17 12:20 98.2 89 17 159/78 (105) 100 01/13/17 12:00 95 I/O 01/13/17 01/13/17 01/13/17 01/14/17 01/14/17 01/14/17 06:59 14:59 22:59 06:59 14:59 22:59 Intake Total 120 ml 1980 ml 1280 ml Output Total 2050 ml 800 ml Balance 120 ml -70 ml 480 ml Intake Oral 120 ml 1180 ml 480 ml IV Total 800 ml 800 ml Output Urine Total 2050 ml 800 ml Stool Total 0 ml # Voids 1 4 Result Diagram: 01/14/17 0455 01/14/17 0455 Imaging Last Impressions Chest X-Ray 01/12/17 2988 Signed Impressions: Service Date/Time: December 17:41 - CONCLUSION: No acute disease. Matt Carpio MD Objective Remarks GENERAL: This is a well-nourished, thin patient who appears to be in the pain EYES: Extraocular motions intact. ENT: Nose without drainage. Airway patent. NECK: Trachea midline. CARDIOVASCULAR: Regular rate and rhythm without murmurs RESPIRATORY: Clear to auscultation. Breath sounds equal bilaterally. No wheezes GASTROINTESTINAL: Abdomen soft, non-tender, nondistended. MUSCULOSKELETAL: Bilateral knee pain. barely moves her upper extremities due to pain. NEUROLOGICAL: appears tired. able to answer questions A/P Problem List: (1) Sickle cell pain crisis ICD Code: D57.00 - Hb-SS disease with crisis, unspecified Status: Acute (2) Asthma ICD Code: J45.909 - Unspecified asthma, uncomplicated Status: Chronic (3) Urinary tract infection ICD Code: N39.0 - Urinary tract infection, site not specified Status: Acute Assessment and Plan 21-year-old female with a history of sickle cell anemia, mini strokes with right -sided residual, and asthma presented to the ED with complaints of pain. Sickle cell pain crisis, hemoglobin stable, hemoglobin stable at 8.4 -Pain management with IV morphine and by mouth Percocet, and will schedule the Toradol -continue IVF for hydration, encouraged PO intake. She is on her home meds as well. I also have encouraged her to get out of bed to chair and ambulate as tolerated -Pt does have a funeral director she follows in [place]. Dr. Raymundo, funeral director did evaluate the patient. appreciate recs UTI, with associated leukocytosis, WBC is 14.9 today, abnormal UA with small amount of leukocyte esterase and positive nitrates -Urine culture growing gram neg rods. f/u up sensitivities -Continue Bactrim by mouth bid for now. Asthma, chronic -on home meds. Discharge Planning toradol has been scheduled instead of prn encourage ambulation and po hydration. continue IVFs d/c pending better pain control. Problem Qualifiers (1) Urinary tract infection: Qualified Codes: N39.0 - Urinary tract infection, site not specified Mamie Francis MD Jan 14, 2017 09:04
[2017-01-14] MEDS: SULFAMETHOXAZOLE-TRIMETHOPRIM DS 800-160 MG TAB PO SCH ×2 (09:22→20:34)
[2017-01-14] MEDS: ASPIRIN 325 MG TAB PO SCH (09:23)
[2017-01-14] MEDS: FOLIC ACID 1 MG TAB PO SCH (09:23)
--- NOTE | 2017-01-14 09:35 | PD.ONC.PN ---
Subjective Subjective Remarks Tmax 99.8 overnight. complaining of pain in bilateral arms. no chest pain. pain improved with morphine. no cough or dyspnea. Objective Data Date Time Temp Pulse Resp B/P (MAP) Pulse Ox O2 Delivery O2 Flow Rate FiO2 01/14/17 04:00 99.1 107 16 136/80 (98) 100 01/14/17 04:00 100 01/14/17 00:00 99.8 93 17 155/77 (103) 100 01/14/17 00:00 103 01/13/17 20:00 99.2 93 18 176/85 (115) 98 01/13/17 20:00 95 01/13/17 16:25 98.5 87 17 138/74 (95) 100 01/13/17 16:00 94 01/13/17 14:35 98 Nasal Cannula 2.00 01/13/17 12:20 98.2 89 17 159/78 (105) 100 01/13/17 12:00 95 01/14/17 01/14/17 01/14/17 06:59 14:59 22:59 Intake Total 1280 ml Output Total 800 ml Balance 480 ml Result Diagram: 01/14/17 0455 01/14/17 0455 Laboratory Results Laboratory Tests Test 01/14/17 04:55 White Blood Count 14.2 TH/MM3 Red Blood Count 2.28 MIL/MM3 Hemoglobin 8.7 GM/DL Hematocrit 25.5 % Mean Corpuscular Volume 111.8 FL Mean Corpuscular Hemoglobin 38.0 PG Mean Corpuscular Hemoglobin Concent 34.0 % Red Cell Distribution Width 18.1 % Platelet Count 249 TH/MM3 Mean Platelet Volume 8.0 FL Neutrophils (%) (Auto) 84.4 % Lymphocytes (%) (Auto) 8.1 % Monocytes (%) (Auto) 6.5 % Eosinophils (%) (Auto) 0.6 % Basophils (%) (Auto) 0.4 % Neutrophils # (Auto) 12.0 TH/MM3 Lymphocytes # (Auto) 1.2 TH/MM3 Monocytes # (Auto) 0.9 TH/MM3 Eosinophils # (Auto) 0.1 TH/MM3 Basophils # (Auto) 0.1 TH/MM3 CBC Comment AUTO DIFF Differential Total Cells Counted 100 Neutrophils % (Manual) 84 % Lymphocytes % 7 % Monocytes % 8 % Eosinophils % 1 % Neutrophils # (Manual) 11.9 TH/MM3 Nucleated Red Blood Cells 1 /100 WBC Differential Comment FINAL DIFF MANUAL Platelet Estimate NORMAL Platelet Morphology Comment NORMAL Target Cells 1+ Sarah-[place] Bodies PRESENT Red Cell Morphology Comment Blood Urea Nitrogen 3 MG/DL Creatinine 0.60 MG/DL Random Glucose 100 MG/DL Calcium Level 8.5 MG/DL Sodium Level 138 MEQ/L Potassium Level 4.1 MEQ/L Chloride Level 102 MEQ/L Carbon Dioxide Level 25.9 MEQ/L Anion Gap 10 MEQ/L Estimat Glomerular Filtration Rate 156 ML/MIN Culture Results Microbiology Date/Time Source Procedure Growth Status 01/12/17 18:10 Urine Random Urine Urine Culture - Final Klebsiella Pneumoniae Complete Administered Medications Medications (Trade) Dose Ordered Sig/Jessy Route PRN Reason Start Time Stop Time Status Last Admin Dose Admin Aspirin (Aspirin) 325 mg DAILY PO 01/13/17 09:00 01/13/17 08:06 Folic Acid (Folate) 1 mg DAILY PO 01/13/17 09:00 01/13/17 08:06 Hydroxyurea (Hydrea) 500 mg DAILY PO 01/13/17 09:00 01/13/17 08:08 Montelukast Sodium (Singulair) 10 mg HS PO 01/13/17 21:00 01/13/17 23:31 Oxycodone/ Acetaminophen (Percocet 10-325 Mg) 1 tab Q4H PRN PO PAIN 1-5 01/13/17 05:00 01/13/17 18:43 Ketorolac Tromethamine (Toradol Inj) 30 mg Q6HR PRN IV PUSH breakthrough 01/13/17 05:00 01/18/17 04:59 01/14/17 04:56 Trimethoprim/ Sulfamethoxazole (Bactrim Ds 800-160 Mg) 1 tab Q12HR PO 01/13/17 09:00 01/13/17 23:31 Morphine Sulfate (Morphine Inj) 2 mg Q3H PRN IV PUSH pain >5 01/13/17 08:30 01/14/17 06:04 Sodium Chloride 1,000 ml @ 100 mls/hr Q10H IV 01/13/17 13:00 01/13/17 23:23 Enoxaparin Sodium (Lovenox Inj) 40 mg Q24H SQ 01/13/17 13:00 01/13/17 12:49 Objective Remarks GENERAL: Young woman, sitting hunched in chair resting. SKIN: Warm and dry. HEAD: Normocephalic. EYES: No injection or drainage. NECK: Supple, trachea midline. CARDIOVASCULAR: +S1/S2, tachy RESPIRATORY: Breath sounds equal bilaterally. No accessory muscle use. GASTROINTESTINAL: Abdomen soft, non-tender, nondistended. EXTREMITIES: No cyanosis NEUROLOGICAL: No obvious focal deficit. Awake, alert, and oriented x3. Assessment/Plan Problem List: (1) Sickle cell pain crisis ICD Codes: D57.00 - Hb-SS disease with crisis, unspecified Status: Acute Plan: ++ hemoglobin sickle-cell disease --follows at [facility] --had been on exchange transfusions every other month for much of the past 10 years. They describe -- Because of her iron overload, the ict teacher at [facility] recommended exchange transfusions be discontinued and initiate the patient on hydroxyurea which she takes at a dose of 1500 mg alternating with 2000 mg daily. --is also on an oral iron chelating agent. -- frequent ER visits and hospitalizations for pain crises. In the year 2017, she has had ER visit/hospitalizations un August, October and now in December. Assessment 21y/o female admitted with sickle cell pain crisis. h/o Hemoglobin sickle-cell disease. Ischemic stroke. Asthma. Craniotomy for ischemic stroke. Umbilical hernia repair. Port placement. Plan 1. Sickle cell pain crisis; uncomplicated by acute stroke, acute chest syndrome or avascular necrosis: continue supportive care with hypotonic IVF, pain management, IS. Receiving Toradol/Morphine 2. continue Hydrea 3. DVT prophylaxis: on Lovenox Attending Statement The exam, history, and the medical decision-making described in the above note were completed with the assistance of the mid-level provider. I reviewed and agree with the findings presented. I attest that I had a [id number] encounter with the patient on the same day, and personally performed and documented my assessment and findings in the medical record. Patient seen and examined, vital signs, medications and labs were reviewed. Subjectively she reports severe pain in her right arm. She tells me she is barely able to move it, the right arm is wrapped in a warming blanket. She tells me the pain medication seems not to last, when I walked in the room she was asleep and falls asleep while I'm talking to her. She is presently on both IV and oral opioids at fairly high doses. I would recommend continuing supportive care with IV fluids, incentive spirometry, continue DVT prophylaxis with Lovenox, I have cut down her aspirin dose from 325 mg daily to 81 mg daily. Should the pain in her right arm continue I would consider obtaining an MRI to rule out osteonecrosis. Continue hydroxyurea. Continue oral iron chelation therapy. Shelby Romo Jan 14, 2017 09:35 Corbin Raymundo MD Jan 14, 2017 16:29
[2017-01-14] MEDS: HYDROXYUREA 500 MG CAP PO SCH (09:37)
[2017-01-14] MEDS: KETOROLAC TROMETHAMINE 30 MG/ML (IVP) VIAL IV PUSH SCH ×4 (09:39→22:47)
[2017-01-14] MEDS: SODIUM CHLOR 0.45% 1000 ML INJ 1,000 ML IV SCH ×2 (09:40→19:00)
[2017-01-14] MEDS: ENOXAPARIN SODIUM 40 MG/0.4 ML SYRINGE SQ SCH (12:24)
[2017-01-14] MEDS ORDERED: HYDROmorphone HCL PF 1 MG/ML VIAL IV PUSH ONE (18:15)
[2017-01-14] MEDS ORDERED: oxyCODONE/ACETAMINOPHEN 7.5 MG/325 MG TAB PO PRN (18:15)
[2017-01-14] MEDS: MONTELUKAST SODIUM 10 MG TAB PO SCH (20:34)
[2017-01-14] MEDS: oxyCODONE/ACETAMINOPHEN 10 MG/325 MG TAB PO PRN (22:47)
[2017-01-15] VITALS (7 sets, daily range): BP systolic 132–143; BP diastolic 64–88; PULSE 97–116; RESP 14–19; TEMP 97.9–99; O2SAT 91–100
[2017-01-15] MEDS: SODIUM CHLOR 0.45% 1000 ML INJ 1,000 ML IV SCH ×3 (00:21→15:12)
[2017-01-15] MEDS: KETOROLAC TROMETHAMINE 30 MG/ML (IVP) VIAL IV PUSH SCH ×3 (04:10→17:59)
[2017-01-15] MEDS: MORPHINE SULFATE 4 MG/ML INJ IV PUSH PRN ×2 (04:11→16:06)
[2017-01-15 06:03] LABS: AUTOMATED NEUTROPHIL # 7.4 TH/MM3 (1.8-7.7); BASOPHIL # 0.2 TH/MM3 (0-0.2); BASOPHIL % 1.9 % (0.0-2.0); EOSINOPHIL # 0.2 TH/MM3 (0-0.4); EOSINOPHIL % 1.9 % (0.0-4.0); HEMATOCRIT 23.1 % (35.0-46.0); LYMPH % 19.3 % (9.0-44.0); LYMPHOCYTE # 2.1 TH/MM3 (1.0-4.8); MEAN CELL VOLUME 112.2 FL (80.0-100.0); MEAN CORPUSCULAR HEMOGLOBIN 39.3 PG (27.0-34.0); MONO % 8.6 % (0.0-8.0); NEUT % 68.3 % (16.0-70.0); PLATELET COUNT 221 TH/MM3 (150-450); RED BLOOD COUNT 2.06 MIL/MM3 (4.00-5.30); RED CELL DISTRIBUTION WIDTH 18.5 % (11.6-17.2); WHITE BLOOD COUNT 10.9 TH/MM3 (4.0-11.0)
[2017-01-15 06:04] LABS: HEMO FLAGS AUTO DIFF
[2017-01-15 06:11] LABS: BICARBONATE 26.2 MEQ/L (21.0-32.0); POTASSIUM 4.1 MEQ/L (3.5-5.1)
[2017-01-15 06:13] LABS: INDIRECT BILIRUBIN 1.5 MG/DL (0.0-0.8); TOTAL BILIRUBIN ADULT 2.1 MG/DL (0.2-1.0)
[2017-01-15 06:37] LABS: BASOPHILS 1 % (0-2); CORRECTED NUCLEATED RBC 2 /100 WBC (0-0); NEUTROPHIL # MANUAL DIFF 7.4 TH/MM3 (1.8-7.7); POLYS (SEG NEUTROPHILS) 68 % (16-70); WBC DIFF SAMPLE 100
[2017-01-15 06:38] LABS: HOWELL-JOLLY BODIES PRESENT (NONE SEEN); KERATOCYTES 1+ (NORMAL); OVALOCYTES 1+ (NORMAL); PLATELET ESTIMATE SMEAR NORMAL (NORMAL); PLATELET MORPHOLOGY NORMAL (NORMAL); SCAN/DIFF FINAL DIFF MANUAL; TARGET CELLS 2+ (NORMAL)
[2017-01-15] MEDS: SULFAMETHOXAZOLE-TRIMETHOPRIM DS 800-160 MG TAB PO SCH ×2 (08:52→22:18)
[2017-01-15] MEDS: ASPIRIN EC 81 MG TABEC PO SCH (08:52)
[2017-01-15] MEDS: FOLIC ACID 1 MG TAB PO SCH (08:52)
--- NOTE | 2017-01-15 08:52 | HHI.PR ---
Subjective Remarks Pt today states that pain is better. Family at bedside state that changes made to pain regimen helped a lot. Pt has been drinking fluids and sitting on recliner, not much ambulation however. no nausea or vomiting, pain in right upper extremity improved but still there. Objective Vitals Vital Signs Date Time Temp Pulse Resp B/P (MAP) Pulse Ox O2 Delivery O2 Flow Rate FiO2 01/15/17 04:00 98.1 104 17 139/81 (100) 96 01/15/17 00:00 98.5 116 19 143/88 (106) 93 01/14/17 20:00 99.5 120 17 136/71 (92) 93 01/14/17 18:00 99.0 128 16 131/88 (102) 98 01/14/17 15:30 18 01/14/17 12:00 99.1 103 14 128/87 (101) 100 01/14/17 11:00 16 01/14/17 08:56 97 21 I/O 01/14/17 01/14/17 01/14/17 01/15/17 01/15/17 01/15/17 06:59 14:59 22:59 06:59 14:59 22:59 Intake Total 1280 ml 100 ml 1480 ml 480 ml Output Total 800 ml 1400 ml 600 ml Balance 480 ml 100 ml 80 ml -120 ml Intake Oral 480 ml 100 ml 480 ml 480 ml IV Total 800 ml 1000 ml Output Urine Total 800 ml 1400 ml 600 ml # Voids 2 # Bowel Movements 0 Result Diagram: 01/15/17 0415 01/15/17 0415 Imaging Last Impressions Chest X-Ray 01/12/17 1728 Signed Impressions: Service Date/Time: December 17:41 - CONCLUSION: No acute disease. Matt Carpio MD Objective Remarks GENERAL: This is a well-nourished, thin patient, appears tired but more comfortable. EYES: Extraocular motions intact. ENT: Nose without drainage. Airway patent. NECK: Trachea midline. CARDIOVASCULAR: Regular rate and rhythm without murmurs RESPIRATORY: Clear to auscultation. Breath sounds equal bilaterally. No wheezes GASTROINTESTINAL: Abdomen soft, non-tender, nondistended. MUSCULOSKELETAL: able to roll over for me to examine her, more movement in extremities noted. NEUROLOGICAL: appears tired. able to answer questions A/P Problem List: (1) Sickle cell pain crisis ICD Code: D57.00 - Hb-SS disease with crisis, unspecified Status: Acute (2) Asthma ICD Code: J45.909 - Unspecified asthma, uncomplicated Status: Chronic (3) Urinary tract infection ICD Code: N39.0 - Urinary tract infection, site not specified Status: Acute Assessment and Plan 21-year-old female with a history of sickle cell anemia, mini strokes with right -sided residual, and asthma presented to the ED with complaints of pain. Sickle cell pain crisis, hemoglobin stable, hemoglobin stable at 8.7 -Pain management with IV morphine and by mouth Percocet, and Toradol -continue IVF for hydration, encouraged PO intake. She is on her home meds as well. I also have encouraged her to get out of bed to chair and ambulate as tolerated. Encouraged used of IS q1hr while awake. -Pt does have a tapper balance wheel screw hole she follows in [place]. Dr. Raymundo, tapper balance wheel screw hole did evaluate the patient. appreciate recs UTI, with associated leukocytosis, WBC is 14.9 today, abnormal UA with small amount of leukocyte esterase and positive nitrates -Urine culture growing klebsiella PNA sensitive to bactrim. -Continue Bactrim by mouth bid for now. Asthma, chronic -on home meds. Discharge Planning encourage ambulation and po hydration. continue IVFs. d/c pending better pain control. Problem Qualifiers (1) Urinary tract infection: Qualified Codes: N39.0 - Urinary tract infection, site not specified Mamie rFancis MD Jan 15, 2017 08:52
[2017-01-15] MEDS: oxyCODONE/ACETAMINOPHEN 10 MG/325 MG TAB PO PRN ×3 (08:53→22:19)
[2017-01-15] MEDS: SODIUM CHLORIDE 0.9% FLUSH 10 ML FLUSH IV FLUSH SCH ×2 (08:55→22:22)
[2017-01-15] MEDS: HYDROXYUREA 500 MG CAP PO SCH (08:55)
--- NOTE | 2017-01-15 09:29 | PD.ONC.PN ---
Subjective Subjective Remarks Afebrile overnight. Reports pain is improved today. Pain still primarily in arms and legs. No chest pain. No cough or SOB. Objective Data Date Time Temp Pulse Resp B/P (MAP) Pulse Ox O2 Delivery O2 Flow Rate FiO2 01/15/17 04:00 98.1 104 17 139/81 (100) 96 01/15/17 00:00 98.5 116 19 143/88 (106) 93 01/14/17 20:00 99.5 120 17 136/71 (92) 93 01/14/17 18:00 99.0 128 16 131/88 (102) 98 01/14/17 15:30 18 01/14/17 12:00 99.1 103 14 128/87 (101) 100 01/14/17 11:00 16 01/15/17 01/15/17 01/15/17 07:00 15:00 23:00 Intake Total 480 ml Output Total 600 ml Balance -120 ml Result Diagram: 01/15/17 0415 01/15/17 0415 Laboratory Results Laboratory Tests Test 01/15/17 04:15 White Blood Count 10.9 TH/MM3 Red Blood Count 2.06 MIL/MM3 Hemoglobin 8.1 GM/DL Hematocrit 23.1 % Mean Corpuscular Volume 112.2 FL Mean Corpuscular Hemoglobin 39.3 PG Mean Corpuscular Hemoglobin Concent 35.0 % Red Cell Distribution Width 18.5 % Platelet Count 221 TH/MM3 Mean Platelet Volume 9.0 FL Neutrophils (%) (Auto) 68.3 % Lymphocytes (%) (Auto) 19.3 % Monocytes (%) (Auto) 8.6 % Eosinophils (%) (Auto) 1.9 % Basophils (%) (Auto) 1.9 % Neutrophils # (Auto) 7.4 TH/MM3 Lymphocytes # (Auto) 2.1 TH/MM3 Monocytes # (Auto) 0.9 TH/MM3 Eosinophils # (Auto) 0.2 TH/MM3 Basophils # (Auto) 0.2 TH/MM3 CBC Comment AUTO DIFF Differential Total Cells Counted 100 Neutrophils % (Manual) 68 % Lymphocytes % 15 % Monocytes % 16 % Basophils % 1 % Neutrophils # (Manual) 7.4 TH/MM3 Nucleated Red Blood Cells 2 /100 WBC Differential Comment FINAL DIFF MANUAL Platelet Estimate NORMAL Platelet Morphology Comment NORMAL Target Cells 2+ Ovalocytes 1+ Sarah-[place] Bodies PRESENT Keratocytes 1+ Blood Urea Nitrogen 6 MG/DL Creatinine 0.70 MG/DL Random Glucose 84 MG/DL Total Protein 7.0 GM/DL Albumin 3.3 GM/DL Calcium Level 8.3 MG/DL Alkaline Phosphatase 144 U/L Aspartate Amino Transf (AST/SGOT) 88 U/L Alanine Aminotransferase (ALT/SGPT) 77 U/L Total Bilirubin 2.1 MG/DL Direct Bilirubin 0.6 MG/DL Sodium Level 134 MEQ/L Potassium Level 4.1 MEQ/L Chloride Level 100 MEQ/L Carbon Dioxide Level 26.2 MEQ/L Anion Gap 8 MEQ/L Estimat Glomerular Filtration Rate 130 ML/MIN Indirect Bilirubin 1.5 MG/DL Culture Results Microbiology Date/Time Source Procedure Growth Status 01/12/17 18:10 Urine Random Urine Urine Culture - Final Klebsiella Pneumoniae Complete Administered Medications Medications (Trade) Dose Ordered Sig/Jessy Route PRN Reason Start Time Stop Time Status Last Admin Dose Admin Sodium Chloride (NS Flush) 2 ml BID IV FLUSH 01/13/17 09:00 01/14/17 20:34 Folic Acid (Folate) 1 mg DAILY PO 01/13/17 09:00 01/15/17 08:52 Hydroxyurea (Hydrea) 500 mg DAILY PO 01/13/17 09:00 01/15/17 08:55 Montelukast Sodium (Singulair) 10 mg HS PO 01/13/17 21:00 01/14/17 20:34 Oxycodone/ Acetaminophen (Percocet 10-325 Mg) 1 tab Q4H PRN PO PAIN 7-10 01/13/17 05:00 01/15/17 08:53 Trimethoprim/ Sulfamethoxazole (Bactrim Ds 800-160 Mg) 1 tab Q12HR PO 01/13/17 09:00 01/15/17 08:52 Morphine Sulfate (Morphine Inj) 2 mg Q3H PRN IV PUSH BREAKTHROUGH PAIN 01/13/17 08:30 01/15/17 04:11 Sodium Chloride 1,000 ml @ 100 mls/hr Q10H IV 01/13/17 13:00 01/15/17 00:21 Enoxaparin Sodium (Lovenox Inj) 40 mg Q24H SQ 01/13/17 13:00 01/14/17 12:24 Ketorolac Tromethamine (Toradol Inj) 30 mg Q6HR IV PUSH 01/14/17 10:00 01/17/17 09:59 01/15/17 04:10 Aspirin (Ecotrin Ec) 81 mg DAILY PO 01/15/17 09:00 01/15/17 08:52 Objective Remarks GENERAL: Young woman, lying on right side in bed, resting. SKIN: Warm and dry. HEAD: Normocephalic. EYES: No injection or drainage. NECK: Supple, trachea midline. CARDIOVASCULAR: +S1/S2, tachy RESPIRATORY: Breath sounds equal bilaterally. No accessory muscle use. GASTROINTESTINAL: Abdomen soft, non-tender, nondistended. EXTREMITIES: No cyanosis NEUROLOGICAL: awake and alert, normal speech. moving all extremities. Assessment/Plan Problem List: (1) Sickle cell pain crisis ICD Codes: D57.00 - Hb-SS disease with crisis, unspecified Status: Acute Plan: ++ hemoglobin sickle-cell disease --follows at [facility] --had been on exchange transfusions every other month for much of the past 10 years. -- Because of her iron overload, the spout liner helper at [facility] recommended exchange transfusions be discontinued and initiate the patient on hydroxyurea which she takes at a dose of 1500 mg alternating with 2000 mg daily. -- frequent ER visits and hospitalizations for pain crises. In the year 2017, she has had ER visit/hospitalizations un August, October and now in December. Assessment 21y/o female admitted with sickle cell pain crisis. h/o Hemoglobin sickle-cell disease. Ischemic stroke. Asthma. Craniotomy for ischemic stroke. Umbilical hernia repair. Port placement. Plan 1. Sickle cell pain crisis; uncomplicated by acute stroke, acute chest syndrome or avascular necrosis: continue IVF. Pain management: Percocet, Toradol , Morphine. 2. continue Hydrea 3. DVT prophylaxis: on Lovenox, also on ASA (h/o stroke) Attending Statement The exam, history, and the medical decision-making described in the above note were completed with the assistance of the mid-level provider. I reviewed and agree with the findings presented. I attest that I had a [id number] encounter with the patient on the same day, and personally performed and documented my assessment and findings in the medical record. Patient seen and examined. VS, labs and medications reviewed. She is laying in bed with her mother in bed with her. Pt appears very weak, barely able to speak, barely able to bean picker machine operator her hand to move the blanket of herself. Has been on a fairly high dose of pain meds around the clock. Not using incentive spirometer as instructed. I counselled the patient, her mother and grandmother. I cautioned them about opioid pain medications. I advised the patient to try to use the pain meds only when she absolutely must and that she has to make a conscientious effort to avoid habituation to opioids and also developing a high tolerance to these medications. She was advised to get out of bed a little more and try NSAIDs, warm compressions etc to help manage her pain. Shelby Romo Jan 15, 2017 09:29 Corbin Raymundo MD Jan 15, 2017 20:12
[2017-01-15] MEDS: ENOXAPARIN SODIUM 40 MG/0.4 ML SYRINGE SQ SCH (12:00)
[2017-01-15] MEDS: MONTELUKAST SODIUM 10 MG TAB PO SCH (22:19)
[2017-01-16] VITALS (12 sets, daily range): BP systolic 99–134; BP diastolic 59–93; PULSE 86–117; RESP 16–20; TEMP 97.2–100.1; O2SAT 91–98
[2017-01-16] MEDS: KETOROLAC TROMETHAMINE 30 MG/ML (IVP) VIAL IV PUSH SCH ×4 (00:05→19:40)
[2017-01-16] MEDS: SODIUM CHLOR 0.45% 1000 ML INJ 1,000 ML IV SCH ×3 (00:09→20:28)
[2017-01-16] MEDS: SODIUM CHLORIDE 0.9% FLUSH 10 ML FLUSH IV FLUSH PRN ×2 (05:43→07:07)
[2017-01-16 06:06] LABS: AUTOMATED NEUTROPHIL # 6.7 TH/MM3 (1.8-7.7); BASOPHIL % 0.4 % (0.0-2.0); EOSINOPHIL # 0.2 TH/MM3 (0-0.4); EOSINOPHIL % 1.5 % (0.0-4.0); LYMPH % 24.8 % (9.0-44.0); LYMPHOCYTE # 2.6 TH/MM3 (1.0-4.8); MEAN CELL VOLUME 110.4 FL (80.0-100.0); MEAN CORPUSCULAR HEMOGLOBIN 37.9 PG (27.0-34.0); MEAN CORPUSCULAR HGB CONC 34.3 % (32.0-36.0); MONO % 8.7 % (0.0-8.0); NEUT % 64.6 % (16.0-70.0); PLATELET COUNT 185 TH/MM3 (150-450); RED BLOOD COUNT 1.79 MIL/MM3 (4.00-5.30); RED CELL DISTRIBUTION WIDTH 19.1 % (11.6-17.2); WHITE BLOOD COUNT 10.4 TH/MM3 (4.0-11.0)
[2017-01-16 06:29] LABS: ANION GAP 6 MEQ/L (5-15); AST (GOT) 65 U/L (16-38); BICARBONATE 26.6 MEQ/L (21.0-32.0); BLOOD UREA NITROGEN 8 MG/DL (7-18); CHLORIDE 101 MEQ/L (98-107); GLOMERULAR FILTRATION RATE 136 ML/MIN (>89); SODIUM (NA) 134 MEQ/L (136-145)
[2017-01-16 06:31] LABS: ALT (GPT) 65 U/L (9-42); HEMO FLAGS AUTO DIFF
[2017-01-16 06:32] LABS: ALKALINE PHOSPHATASE 139 U/L (45-117); HEMATOCRIT 19.8 % (35.0-46.0); TOTAL BILIRUBIN ADULT 1.4 MG/DL (0.2-1.0)
--- NOTE | 2017-01-16 08:34 | HHI.PR ---
Subjective Remarks Pt tells me that pain is improved. Pt doesn't initially say much to me, needs encouragement from mother and grandmother. she then states pain is a 1/10. Family tell me that she wants to go home. Per grandmother, she has been eating better and has been getting up Pt herself stays quiet and barely answers Objective Vitals Vital Signs Date Time Temp Pulse Resp B/P (MAP) Pulse Ox O2 Delivery O2 Flow Rate FiO2 01/16/17 04:33 88 01/16/17 04:25 97.2 108 16 125/93 (104) 93 01/16/17 00:34 117 01/16/17 00:20 99.7 116 17 134/75 (94) 91 01/15/17 20:20 99.0 107 17 135/71 (92) 91 01/15/17 20:06 104 01/15/17 16:00 97.9 99 14 133/65 (87) 95 01/15/17 12:00 98.2 97 14 141/66 (91) 94 I/O 01/15/17 01/15/17 01/15/17 01/16/17 01/16/17 01/16/17 07:00 15:00 23:00 07:00 15:00 23:00 Intake Total 480 ml 480 ml 1290 ml Output Total 600 ml 1000 ml 1500 ml Balance -120 ml -520 ml -210 ml Intake Oral 480 ml 480 ml 240 ml IV Total 1050 ml Output Urine Total 600 ml 1000 ml 1500 ml # Voids 2 # Bowel Movements 0 0 Result Diagram: 01/16/17 0545 01/16/17 0545 Imaging Last Impressions Chest X-Ray 01/12/17 0978 Signed Impressions: Service Date/Time: December 17:41 - CONCLUSION: No acute disease. Matt Carpio MD Objective Remarks GENERAL: This is a well-nourished, thin patient, appears tired but more comfortable. EYES: Extraocular motions intact. ENT: Nose without drainage. Airway patent. NECK: Trachea midline. CARDIOVASCULAR: Regular rate and rhythm without murmurs RESPIRATORY: Clear to auscultation. Breath sounds equal bilaterally. No wheezes GASTROINTESTINAL: Abdomen soft, non-tender, nondistended. MUSCULOSKELETAL: able to roll over for me to examine her, moves extremities more than before NEUROLOGICAL: appears tired. barely answers questions A/P Problem List: (1) Sickle cell pain crisis ICD Code: D57.00 - Hb-SS disease with crisis, unspecified Status: Acute (2) Asthma ICD Code: J45.909 - Unspecified asthma, uncomplicated Status: Chronic (3) Urinary tract infection ICD Code: N39.0 - Urinary tract infection, site not specified Status: Acute Assessment and Plan 21-year-old female with a history of sickle cell anemia, mini strokes with right -sided residual, and asthma presented to the ED with complaints of pain. Sickle cell pain crisis, hemoglobin dropped to 6.8 this morning. 1 unit PRBC ordered by night team. Check H&H post transfusion. -Pain management with IV morphine and by mouth Percocet, and Toradol -continue IVF for hydration, encouraged PO intake. She is on her home meds as well. Pt has been encouraged to get out of bed to chair and ambulate as tolerated. Encouraged used of IS q1hr while awake. -Pt does have a carpenter rough she follows in [place]. Dr. Raymundo, carpenter rough did evaluate the patient. appreciate recs UTI, with associated leukocytosis,leukocytosis has resolved. -Urine culture growing klebsiella PNA sensitive to bactrim. -Continue Bactrim by mouth bid for now. Asthma, chronic -on home meds. Discharge Planning encourage ambulation and po hydration. continue IVFs. Pt will be getting 1 unit PRBC. Problem Qualifiers (1) Urinary tract infection: Qualified Codes: N39.0 - Urinary tract infection, site not specified Mamie Francis MD Jan 16, 2017 08:34
[2017-01-16 08:44] LABS: BANDS 1 % (0-6); BASOPHILS 1 % (0-2); CORRECTED NUCLEATED RBC 6 /100 WBC (0-0); HOWELL-JOLLY BODIES PRESENT (NONE SEEN); METAMYELOCYTES 1 % (0-1); NEUTROPHIL # MANUAL DIFF 8.4 TH/MM3 (1.8-7.7); OVALOCYTES 1+ (NORMAL); PLATELET ESTIMATE SMEAR NORMAL (NORMAL); PLATELET MORPHOLOGY NORMAL (NORMAL); POLYS (SEG NEUTROPHILS) 79 % (16-70); SCAN/DIFF FINAL DIFF MANUAL; WBC DIFF SAMPLE 100
[2017-01-16 08:45] LABS: TARGET CELLS 1+ (NORMAL)
[2017-01-16] MEDS: SODIUM CHLORIDE 0.9% FLUSH 10 ML FLUSH IV FLUSH SCH ×2 (09:00→20:20)
[2017-01-16] MEDS: SULFAMETHOXAZOLE-TRIMETHOPRIM DS 800-160 MG TAB PO SCH ×2 (10:16→20:47)
[2017-01-16] MEDS: ASPIRIN EC 81 MG TABEC PO SCH (10:16)
[2017-01-16] MEDS: oxyCODONE/ACETAMINOPHEN 10 MG/325 MG TAB PO PRN (10:17)
[2017-01-16] MEDS: FOLIC ACID 1 MG TAB PO SCH (10:21)
[2017-01-16] MEDS: HYDROXYUREA 500 MG CAP PO SCH (10:29)
[2017-01-16] MEDS: ENOXAPARIN SODIUM 40 MG/0.4 ML SYRINGE SQ SCH (12:38)
[2017-01-16] MEDS ORDERED: diphenhydrAMINE HCL 25 MG CAP PO PRN (14:30)
[2017-01-16] MEDS ORDERED: ACETAMINOPHEN 325 MG TAB PO PRN (14:30)
--- NOTE | 2017-01-16 18:52 | PD.ONC.PN ---
Subjective Subjective Remarks less pain wants to go home Mom at bedside Objective Data Date Time Temp Pulse Resp B/P (MAP) Pulse Ox O2 Delivery O2 Flow Rate FiO2 01/16/17 16:00 97.8 86 16 123/65 (84) 93 01/16/17 14:20 98.1 86 18 99/59 96 01/16/17 12:00 98.1 94 16 123/69 (87) 92 01/16/17 11:20 18 01/16/17 08:00 98.0 100 20 117/71 (86) 93 01/16/17 04:33 88 01/16/17 04:25 97.2 108 16 125/93 (104) 93 01/16/17 00:34 117 01/16/17 00:20 99.7 116 17 134/75 (94) 91 01/15/17 20:20 99.0 107 17 135/71 (92) 91 01/15/17 20:06 104 01/16/17 01/16/17 01/16/17 07:00 15:00 23:00 Intake Total 1290 ml 1210 ml Output Total 1500 ml 1100 ml Balance -210 ml 110 ml Result Diagram: 01/16/17 0545 01/16/17 0545 Laboratory Results Laboratory Tests Test 01/16/17 05:45 White Blood Count 10.4 TH/MM3 Red Blood Count 1.79 MIL/MM3 Hemoglobin 6.8 GM/DL Hematocrit 19.8 % Mean Corpuscular Volume 110.4 FL Mean Corpuscular Hemoglobin 37.9 PG Mean Corpuscular Hemoglobin Concent 34.3 % Red Cell Distribution Width 19.1 % Platelet Count 185 TH/MM3 Mean Platelet Volume 7.8 FL Neutrophils (%) (Auto) 64.6 % Lymphocytes (%) (Auto) 24.8 % Monocytes (%) (Auto) 8.7 % Eosinophils (%) (Auto) 1.5 % Basophils (%) (Auto) 0.4 % Neutrophils # (Auto) 6.7 TH/MM3 Lymphocytes # (Auto) 2.6 TH/MM3 Monocytes # (Auto) 0.9 TH/MM3 Eosinophils # (Auto) 0.2 TH/MM3 Basophils # (Auto) 0.0 TH/MM3 CBC Comment AUTO DIFF Differential Total Cells Counted 100 Neutrophils % (Manual) 79 % Band Neutrophils % 1 % Lymphocytes % 15 % Monocytes % 3 % Basophils % 1 % Neutrophils # (Manual) 8.4 TH/MM3 Metamyelocytes 1 % Nucleated Red Blood Cells 6 /100 WBC Differential Comment FINAL DIFF MANUAL Platelet Estimate NORMAL Platelet Morphology Comment NORMAL Target Cells 1+ Ovalocytes 1+ [place] Bodies PRESENT Red Cell Morphology Comment Blood Urea Nitrogen 8 MG/DL Creatinine 0.67 MG/DL Random Glucose 85 MG/DL Total Protein 6.5 GM/DL Albumin 3.0 GM/DL Calcium Level 8.5 MG/DL Magnesium Level 2.0 MG/DL Alkaline Phosphatase 139 U/L Aspartate Amino Transf (AST/SGOT) 65 U/L Alanine Aminotransferase (ALT/SGPT) 65 U/L Total Bilirubin 1.4 MG/DL Sodium Level 134 MEQ/L Potassium Level 4.0 MEQ/L Chloride Level 101 MEQ/L Carbon Dioxide Level 26.6 MEQ/L Anion Gap 6 MEQ/L Estimat Glomerular Filtration Rate 136 ML/MIN Administered Medications Medications (Trade) Dose Ordered Sig/Jessy Route PRN Reason Start Time Stop Time Status Last Admin Dose Admin Sodium Chloride (NS Flush) 2 ml UNSCH PRN IV FLUSH FLUSH AFTER USING IV ACCESS 01/12/17 22:30 01/16/17 07:07 Sodium Chloride (NS Flush) 2 ml BID IV FLUSH 01/13/17 09:00 01/15/17 22:22 Folic Acid (Folate) 1 mg DAILY PO 01/13/17 09:00 01/16/17 10:21 Hydroxyurea (Hydrea) 500 mg DAILY PO 01/13/17 09:00 01/16/17 10:29 Montelukast Sodium (Singulair) 10 mg HS PO 01/13/17 21:00 01/15/17 22:19 Oxycodone/ Acetaminophen (Percocet 10-325 Mg) 1 tab Q4H PRN PO PAIN 7-10 01/13/17 05:00 01/16/17 10:17 Trimethoprim/ Sulfamethoxazole (Bactrim Ds 800-160 Mg) 1 tab Q12HR PO 01/13/17 09:00 01/16/17 10:16 Morphine Sulfate (Morphine Inj) 2 mg Q3H PRN IV PUSH BREAKTHROUGH PAIN 01/13/17 08:30 01/15/17 16:06 Sodium Chloride 1,000 ml @ 100 mls/hr Q10H IV 01/13/17 13:00 01/16/17 10:24 Enoxaparin Sodium (Lovenox Inj) 40 mg Q24H SQ 01/13/17 13:00 01/16/17 12:38 Ketorolac Tromethamine (Toradol Inj) 30 mg Q6HR IV PUSH 01/14/17 10:00 01/17/17 09:59 01/16/17 12:38 Aspirin (Ecotrin Ec) 81 mg DAILY PO 01/15/17 09:00 01/16/17 10:16 Diphenhydramine HCl (Benadryl) 25 mg Q4H PRN PO SEE LABEL COMMENTS 01/16/17 14:30 01/16/17 14:31 Objective Remarks GENERAL: Well-nourished, well-developed patient. SKIN: Warm and dry. HEAD: Normocephalic. EYES: No scleral icterus. No injection or drainage. NECK: Supple, trachea midline. No JVD or lymphadenopathy. LYMPHATIC: No adenopathy. CARDIOVASCULAR: Regular rate and rhythm without murmurs. RESPIRATORY: Breath sounds equal bilaterally. No accessory muscle use. GASTROINTESTINAL: Abdomen soft, non-tender, nondistended. EXTREMITIES: No cyanosis, or edema. MUSCULOSKELETAL: Adequate muscle tone. NEUROLOGICAL: No obvious focal deficit. Awake, alert, and oriented x3. PSYCHIATRIC: Appropriate mood and affect; insight and judgment normal. Assessment/Plan Problem List: (1) Sickle cell pain crisis ICD Codes: D57.00 - Hb-SS disease with crisis, unspecified Status: Acute Plan: ++ hemoglobin sickle-cell disease --follows at [facility] --had been on exchange transfusions every other month for much of the past 10 years. -- Because of her iron overload, the lever miller at [facility] recommended exchange transfusions be discontinued and initiate the patient on hydroxyurea which she takes at a dose of 1500 mg alternating with 2000 mg daily. -- frequent ER visits and hospitalizations for pain crises. In the year 2016, she has had ER visit/hospitalizations in August, October and now in December. Assessment 21y/o female admitted with sickle cell pain crisis. h/o Hemoglobin sickle-cell disease. Ischemic stroke. Asthma. Craniotomy for ischemic stroke. Umbilical hernia repair. Port placement. Plan 1. Sickle cell pain crisis; uncomplicated by acute stroke, acute chest syndrome or avascular necrosis: continue IVF. Pain management: Percocet, Toradol , Morphine. 2. continue Hydrea 3. DVT prophylaxis: on Lovenox, also on ASA (h/o stroke) 01/16/17 Pt crisis seems to have resolved. stable to be d/c Evita Mcgregor MD Jan 16, 2017 18:52
[2017-01-16 20:34] LABS: HEMATOCRIT 25.7 % (35.0-46.0)
[2017-01-16 20:38] LABS: REVIEW FLAG FINAL
[2017-01-16] MEDS: MONTELUKAST SODIUM 10 MG TAB PO SCH (20:48)
[2017-01-16 21:26] LABS: BACTERIA, URINE RARE /hpf; BLOOD, URINE NEG (NEG); COMMENT (UR) CULT NOT INDICATED; CULTURE IF INDICATED CULT NOT INDICATED; GLUCOSE,URINE NEG (NEG); KETONE, URINE NEG (NEG); NITRITE,URINE NEG (NEG); PH, URINE 7.5 (5.0-8.5); SQUAMOUS EPITHELIAL CELL URINE 2 /hpf (0-5); URINE COLOR YELLOW (YELLW/STRAW)
[2017-01-17] MEDS: KETOROLAC TROMETHAMINE 30 MG/ML (IVP) VIAL IV PUSH SCH ×2 (00:07→06:18)
[2017-01-17 00:15] VITALS: BP 110/58; PULSE 86; RESP 17; TEMP 97.3; O2SAT 92
[2017-01-17 00:19] VITALS: PULSE 80
[2017-01-17] MEDS: SODIUM CHLOR 0.45% 1000 ML INJ 1,000 ML IV SCH (00:46)
[2017-01-17 04:05] VITALS: PULSE 70
[2017-01-17 04:20] VITALS: BP 118/65; PULSE 79; RESP 18; TEMP 97.8; O2SAT 97
[2017-01-17] MEDS: SODIUM CHLORIDE 0.9% FLUSH 10 ML FLUSH IV FLUSH PRN (06:14)
[2017-01-17 06:45] LABS: AUTOMATED NEUTROPHIL # 6.2 TH/MM3 (1.8-7.7); BASOPHIL # 0.1 TH/MM3 (0-0.2); BASOPHIL % 0.6 % (0.0-2.0); EOSINOPHIL # 0.2 TH/MM3 (0-0.4); EOSINOPHIL % 2.2 % (0.0-4.0); HEMATOCRIT 23.9 % (35.0-46.0); LYMPH % 22.8 % (9.0-44.0); LYMPHOCYTE # 2.3 TH/MM3 (1.0-4.8); MEAN CELL VOLUME 103.6 FL (80.0-100.0); MEAN CORPUSCULAR HGB CONC 35.7 % (32.0-36.0); MONO % 12.1 % (0.0-8.0); NEUT % 62.3 % (16.0-70.0); PLATELET COUNT 241 TH/MM3 (150-450); RED BLOOD COUNT 2.31 MIL/MM3 (4.00-5.30); RED CELL DISTRIBUTION WIDTH 22.5 % (11.6-17.2)
[2017-01-17 06:50] LABS: HEMO FLAGS AUTO DIFF
[2017-01-17 07:15] LABS: ANION GAP 8 MEQ/L (5-15); AST (GOT) 59 U/L (16-38); BICARBONATE 25.4 MEQ/L (21.0-32.0); BLOOD UREA NITROGEN 8 MG/DL (7-18); CHLORIDE 105 MEQ/L (98-107); GLOMERULAR FILTRATION RATE 138 ML/MIN (>89); SODIUM (NA) 138 MEQ/L (136-145)
[2017-01-17 07:18] LABS: ALKALINE PHOSPHATASE 119 U/L (45-117); ALT (GPT) 60 U/L (9-42); TOTAL BILIRUBIN ADULT 1.2 MG/DL (0.2-1.0)
[2017-01-17 08:00] VITALS: BP 116/64; PULSE 65; RESP 16; TEMP 98.4; O2SAT 99
[2017-01-17] MEDS: SODIUM CHLORIDE 0.9% FLUSH 10 ML FLUSH IV FLUSH SCH (08:21)
[2017-01-17] MEDS: ASPIRIN EC 81 MG TABEC PO SCH (08:23)
[2017-01-17] MEDS: FOLIC ACID 1 MG TAB PO SCH (08:24)
[2017-01-17] MEDS: SULFAMETHOXAZOLE-TRIMETHOPRIM DS 800-160 MG TAB PO SCH (08:24)
[2017-01-17] MEDS: HYDROXYUREA 500 MG CAP PO SCH (08:27)
[2017-01-17 09:04] LABS: CORRECTED NUCLEATED RBC 5 /100 WBC (0-0); EOSINOPHILS 2 % (0-4); METAMYELOCYTES 1 % (0-1); OVALOCYTES 1+ (NORMAL); PLATELET ESTIMATE SMEAR NORMAL (NORMAL); PLATELET MORPHOLOGY NORMAL (NORMAL); POLYS (SEG NEUTROPHILS) 79 % (16-70); SCAN/DIFF FINAL DIFF MANUAL; SICKLE CELLS 1+ (NORMAL); TARGET CELLS 1+ (NORMAL); WBC DIFF SAMPLE 100
--- NOTE | 2017-01-17 11:16 | PD.ONC.PN ---
Subjective Subjective Remarks Afebrile overnight. Patient feeling much better. Crisis pain has improved. Eager to go home. Objective Data Date Time Temp Pulse Resp B/P (MAP) Pulse Ox O2 Delivery O2 Flow Rate FiO2 01/17/17 08:00 98.4 65 16 116/64 (81) 99 01/17/17 04:20 97.8 79 18 118/65 (82) 97 01/17/17 04:05 70 01/17/17 00:19 80 01/17/17 00:15 97.3 86 17 110/58 (75) 92 01/16/17 20:43 99.7 90 16 117/70 (86) 94 01/16/17 20:11 98 01/16/17 18:00 100.1 88 16 128/76 98 01/16/17 16:00 97.8 86 16 123/65 (84) 93 01/16/17 14:20 98.1 86 18 99/59 96 01/16/17 12:00 98.1 94 16 123/69 (87) 92 01/16/17 11:20 18 01/17/17 01/17/17 01/17/17 07:00 15:00 23:00 Intake Total 1290 ml Output Total 300 ml Balance 990 ml Result Diagram: 01/17/17 0610 01/17/17 0610 Laboratory Results Laboratory Tests Test 01/16/17 19:50 01/16/17 20:30 01/17/17 06:10 Hemoglobin 8.8 GM/DL 8.5 GM/DL Hematocrit 25.7 % 23.9 % Urine Color YELLOW Urine Turbidity CLEAR Urine pH 7.5 Urine Specific [place] 1.013 Urine Protein NEG mg/dL Urine Glucose (UA) NEG mg/dL Urine Ketones NEG mg/dL Urine Occult Blood NEG Urine Nitrite NEG Urine Bilirubin NEG Urine Urobilinogen GREATER THAN 12.0 MG/DL Urine Leukocyte Esterase SMALL Urine RBC LESS THAN 1 /hpf Urine WBC 2 /hpf Urine Squamous Epithelial Cells 2 /hpf Urine Bacteria RARE /hpf Microscopic Urinalysis Comment CULT NOT INDICATED White Blood Count 10.0 TH/MM3 Red Blood Count 2.31 MIL/MM3 Mean Corpuscular Volume 103.6 FL Mean Corpuscular Hemoglobin 37.0 PG Mean Corpuscular Hemoglobin Concent 35.7 % Red Cell Distribution Width 22.5 % Platelet Count 241 TH/MM3 Mean Platelet Volume 7.6 FL Neutrophils (%) (Auto) 62.3 % Lymphocytes (%) (Auto) 22.8 % Monocytes (%) (Auto) 12.1 % Eosinophils (%) (Auto) 2.2 % Basophils (%) (Auto) 0.6 % Neutrophils # (Auto) 6.2 TH/MM3 Lymphocytes # (Auto) 2.3 TH/MM3 Monocytes # (Auto) 1.2 TH/MM3 Eosinophils # (Auto) 0.2 TH/MM3 Basophils # (Auto) 0.1 TH/MM3 CBC Comment AUTO DIFF Differential Total Cells Counted 100 Neutrophils % (Manual) 79 % Lymphocytes % 15 % Monocytes % 3 % Eosinophils % 2 % Neutrophils # (Manual) 8.0 TH/MM3 Metamyelocytes 1 % Nucleated Red Blood Cells 5 /100 WBC Differential Comment FINAL DIFF MANUAL Platelet Estimate NORMAL Platelet Morphology Comment NORMAL Sickle Cells 1+ Target Cells 1+ Ovalocytes 1+ Blood Urea Nitrogen 8 MG/DL Creatinine 0.66 MG/DL Random Glucose 81 MG/DL Total Protein 6.7 GM/DL Albumin 2.9 GM/DL Calcium Level 8.2 MG/DL Alkaline Phosphatase 119 U/L Aspartate Amino Transf (AST/SGOT) 59 U/L Alanine Aminotransferase (ALT/SGPT) 60 U/L Total Bilirubin 1.2 MG/DL Sodium Level 138 MEQ/L Potassium Level 4.0 MEQ/L Chloride Level 105 MEQ/L Carbon Dioxide Level 25.4 MEQ/L Anion Gap 8 MEQ/L Estimat Glomerular Filtration Rate 138 ML/MIN Administered Medications Medications (Trade) Dose Ordered Sig/Jessy Route PRN Reason Start Time Stop Time Status Last Admin Dose Admin Sodium Chloride (NS Flush) 2 ml UNSCH PRN IV FLUSH FLUSH AFTER USING IV ACCESS 01/12/17 22:30 01/17/17 06:14 Sodium Chloride (NS Flush) 2 ml BID IV FLUSH 01/13/17 09:00 01/16/17 20:20 Folic Acid (Folate) 1 mg DAILY PO 01/13/17 09:00 01/17/17 08:24 Hydroxyurea (Hydrea) 500 mg DAILY PO 01/13/17 09:00 01/17/17 08:27 Montelukast Sodium (Singulair) 10 mg HS PO 01/13/17 21:00 01/16/17 20:48 Oxycodone/ Acetaminophen (Percocet 10-325 Mg) 1 tab Q4H PRN PO PAIN 7-10 01/13/17 05:00 01/16/17 10:17 Trimethoprim/ Sulfamethoxazole (Bactrim Ds 800-160 Mg) 1 tab Q12HR PO 01/13/17 09:00 01/17/17 08:24 Morphine Sulfate (Morphine Inj) 2 mg Q3H PRN IV PUSH BREAKTHROUGH PAIN 01/13/17 08:30 01/15/17 16:06 Sodium Chloride 1,000 ml @ 100 mls/hr Q10H IV 01/13/17 13:00 01/17/17 00:46 Enoxaparin Sodium (Lovenox Inj) 40 mg Q24H SQ 01/13/17 13:00 01/16/17 12:38 Aspirin (Ecotrin Ec) 81 mg DAILY PO 01/15/17 09:00 01/17/17 08:23 Oxycodone/ Acetaminophen (Percocet 7.5-325 Mg) 1 tab Q4H PRN PO PAIN 3-6 01/14/17 18:15 01/16/17 20:47 Diphenhydramine HCl (Benadryl) 25 mg Q4H PRN PO SEE LABEL COMMENTS 01/16/17 14:30 01/16/17 14:31 Objective Remarks GENERAL: Young woman, upright in bed in nad. SKIN: Warm and dry. HEAD: Normocephalic. EYES: No scleral icterus. No injection or drainage. NECK: Supple, trachea midline. CARDIOVASCULAR: Regular rate and rhythm RESPIRATORY: Breath sounds equal bilaterally. No accessory muscle use. GASTROINTESTINAL: Abdomen soft, non-tender, nondistended. EXTREMITIES: No cyanosis NEUROLOGICAL: No obvious focal deficit. Awake, alert, and oriented x3. Assessment/Plan Problem List: (1) Sickle cell pain crisis ICD Codes: D57.00 - Hb-SS disease with crisis, unspecified Status: Acute Plan: 01/17: CBC stable. patient pain improved. wants to go home. clear for d/c. advised to follow up with stopperer assembler on discharge ++ hemoglobin sickle-cell disease --follows at [place] --had been on exchange transfusions every other month for much of the past 10 years. -- Because of her iron overload, the stopperer assembler at [facility] recommended exchange transfusions be discontinued and initiate the patient on hydroxyurea which she takes at a dose of 1500 mg alternating with 2000 mg daily. -- frequent ER visits and hospitalizations for pain crises. In the year 2016, she has had ER visit/hospitalizations in August, October and now in December. Assessment 21y/o female admitted with sickle cell pain crisis. h/o Hemoglobin sickle-cell disease. Ischemic stroke. Asthma. Craniotomy for ischemic stroke. Umbilical hernia repair. Port placement. Attending Statement Patient states that her pain Has improved Painful crisis is over. She wants to go home Okay to discharge Follow up as an outpatient The exam, history, and the medical decision-making described in the above note were completed with the assistance of the mid-level provider. I reviewed and agree with the findings presented. I attest that I had a [id number] encounter with the patient on the same day, and personally performed and documented my assessment and findings in the medical record. Shelby Romo Jan 17, 2017 11:16 Evita Mcgregor MD Jan 17, 2017 21:45
--- NOTE | 2017-01-17 12:21 | HHI.PR ---
Subjective Remarks This is a pleasant 22 y/o Female with Sickle cell anemia, multiple admissions due to Sickle cell crisis, already seen by hematology and agricultural specialist today, she is been followed by [facility], --follows at [facility] CBC stable, recommended to discharge Home, and follow with her customer energy specialist on discharge. had been on exchange transfusions every other month for much of the past 10 years. Because of her iron overload, the alumni coordinator at [facility] recommended exchange transfusions be discontinued and initiate the patient on hydroxyurea which she takes at a dose of 1500 mg alternating with 2000 mg daily. frequent ER visits and hospitalizations for pain crises. In the year 2016, she has had ER visit/ hospitalizations in August, October and now in December. has history of ischemic Stroke, Asthma, Craniotomy for ischemic stroke, and Umbilical hernia repair, Port placement. Seen in her bedroom in the presence of her Grandmother Mrs. Kerrie Syed, no new complaint already recommended for discharge by Hematology and agricultural specialist. Objective Vital Signs Date Time Temp Pulse Resp B/P (MAP) Pulse Ox O2 Delivery O2 Flow Rate FiO2 01/17/17 08:00 98.4 65 16 116/64 (81) 99 01/17/17 04:20 97.8 79 18 118/65 (82) 97 01/17/17 04:05 70 01/17/17 00:19 80 01/17/17 00:15 97.3 86 17 110/58 (75) 92 01/16/17 20:43 99.7 90 16 117/70 (86) 94 01/16/17 20:11 98 01/16/17 18:00 100.1 88 16 128/76 98 01/16/17 16:00 97.8 86 16 123/65 (84) 93 01/16/17 14:20 98.1 86 18 99/59 96 I/O 01/16/17 01/16/17 01/16/17 01/17/17 01/17/17 01/17/17 07:00 15:00 23:00 07:00 15:00 23:00 Intake Total 1290 ml 1210 ml 270 ml 1290 ml Output Total 1500 ml 1100 ml 500 ml 300 ml Balance -210 ml 110 ml -230 ml 990 ml Intake Oral 240 ml 960 ml 240 ml IV Total 1050 ml 1050 ml Packed Cells 250 ml Blood Product IV Normal Saline Flush 250 ml 20 ml Output Urine Total 1500 ml 1100 ml 500 ml 300 ml # Voids 2 4 2 # Bowel Movements 0 0 Result Diagram: 01/17/17 0610 01/17/17 0610 Imaging Last Impressions Chest X-Ray 01/12/17 1728 Signed Impressions: Service Date/Time: December 17:41 - CONCLUSION: No acute disease. Matt Carpio MD Procedures None Other Results Laboratory Tests Test 01/12/17 18:00 01/15/17 04:15 01/16/17 05:45 01/16/17 20:30 Stomatocytes 1+ Reticulocyte Count 6.1 % Absolute Reticulocyte Count 131.3 MIL/L C-Reactive Protein LESS THAN 0.29 MG/DL Keratocytes 1+ Blood Urea Nitrogen 6 MG/DL 8 MG/DL Creatinine 0.70 MG/DL 0.67 MG/DL Random Glucose 84 MG/DL 85 MG/DL Total Protein 7.0 GM/DL 6.5 GM/DL Albumin 3.3 GM/DL 3.0 GM/DL Calcium Level 8.3 MG/DL 8.5 MG/DL Alkaline Phosphatase 144 U/L 139 U/L Aspartate Amino Transf (AST/SGOT) 88 U/L 65 U/L Alanine Aminotransferase (ALT/SGPT) 77 U/L 65 U/L Total Bilirubin 2.1 MG/DL 1.4 MG/DL Direct Bilirubin 0.6 MG/DL Sodium Level 134 MEQ/L 134 MEQ/L Potassium Level 4.1 MEQ/L 4.0 MEQ/L Chloride Level 100 MEQ/L 101 MEQ/L Carbon Dioxide Level 26.2 MEQ/L 26.6 MEQ/L Indirect Bilirubin 1.5 MG/DL Band Neutrophils % 1 % Basophils % 1 % [place] Bodies PRESENT Red Cell Morphology Comment Magnesium Level 2.0 MG/DL Urine Color YELLOW Urine Turbidity CLEAR Urine pH 7.5 Urine Specific [place] 1.013 Urine Protein NEG mg/dL Urine Glucose (UA) NEG mg/dL Urine Ketones NEG mg/dL Urine Occult Blood NEG Urine Nitrite NEG Urine Bilirubin NEG Urine Urobilinogen GREATER THAN 12.0 MG/DL Urine Leukocyte Esterase SMALL Urine RBC LESS THAN 1 /hpf Urine WBC 2 /hpf Urine Squamous Epithelial Cells 2 /hpf Urine Bacteria RARE /hpf Microscopic Urinalysis Comment CULT NOT INDICATED Test 01/17/17 06:10 White Blood Count 10.0 TH/MM3 Red Blood Count 2.31 MIL/MM3 Hemoglobin 8.5 GM/DL Hematocrit 23.9 % Mean Corpuscular Volume 103.6 FL Mean Corpuscular Hemoglobin 37.0 PG Mean Corpuscular Hemoglobin Concent 35.7 % Red Cell Distribution Width 22.5 % Platelet Count 241 TH/MM3 Mean Platelet Volume 7.6 FL Neutrophils (%) (Auto) 62.3 % Lymphocytes (%) (Auto) 22.8 % Monocytes (%) (Auto) 12.1 % Eosinophils (%) (Auto) 2.2 % Basophils (%) (Auto) 0.6 % Neutrophils # (Auto) 6.2 TH/MM3 Lymphocytes # (Auto) 2.3 TH/MM3 Monocytes # (Auto) 1.2 TH/MM3 Eosinophils # (Auto) 0.2 TH/MM3 Basophils # (Auto) 0.1 TH/MM3 CBC Comment AUTO DIFF Differential Total Cells Counted 100 Neutrophils % (Manual) 79 % Lymphocytes % 15 % Monocytes % 3 % Eosinophils % 2 % Neutrophils # (Manual) 8.0 TH/MM3 Metamyelocytes 1 % Nucleated Red Blood Cells 5 /100 WBC Differential Comment FINAL DIFF MANUAL Platelet Estimate NORMAL Platelet Morphology Comment NORMAL Sickle Cells 1+ Target Cells 1+ Ovalocytes 1+ Blood Urea Nitrogen 8 MG/DL Creatinine 0.66 MG/DL Random Glucose 81 MG/DL Total Protein 6.7 GM/DL Albumin 2.9 GM/DL Calcium Level 8.2 MG/DL Alkaline Phosphatase 119 U/L Aspartate Amino Transf (AST/SGOT) 59 U/L Alanine Aminotransferase (ALT/SGPT) 60 U/L Total Bilirubin 1.2 MG/DL Sodium Level 138 MEQ/L Potassium Level 4.0 MEQ/L Chloride Level 105 MEQ/L Carbon Dioxide Level 25.4 MEQ/L Anion Gap 8 MEQ/L Estimat Glomerular Filtration Rate 138 ML/MIN Objective Remarks GENERAL: This is a well-nourished, thin patient, appears tired but more comfortable. EYES: Extraocular motions intact. ENT: Nose without drainage. Airway patent. NECK: Trachea midline. CARDIOVASCULAR: Regular rate and rhythm without murmurs RESPIRATORY: Clear to auscultation. Breath sounds equal bilaterally. No wheezes GASTROINTESTINAL: Abdomen soft, non-tender, nondistended. MUSCULOSKELETAL: able to roll over for me to examine her, moves extremities more than before NEUROLOGICAL: appears tired. barely answers questions Medications and IVs Current Medications Medications (Trade) Dose Ordered Sig/Jessy Route Start Time Stop Time Status Last Admin (NS Flush) 2 ml UNSCH PRN IV FLUSH 01/12/17 22:30 01/17/17 06:14 (NS Flush) 2 ml BID IV FLUSH 01/13/17 09:00 01/16/17 20:20 (Zofran Inj) 4 mg Q6H PRN IVP 01/12/17 22:30 (Narcan Inj) 0.4 mg UNSCH PRN IV 01/12/17 22:30 (Proair Hfa Inh) 2 puff Q4H PRN INH 01/13/17 05:00 (Folate) 1 mg DAILY PO 01/13/17 09:00 01/17/17 08:24 (Hydrea) 500 mg DAILY PO 01/13/17 09:00 01/17/17 08:27 (Singulair) 10 mg HS PO 01/13/17 21:00 01/16/17 20:48 (Percocet 10-325 Mg) 1 tab Q4H PRN PO 01/13/17 05:00 01/16/17 10:17 (Bactrim Ds 800-160 Mg) 1 tab Q12HR PO 01/13/17 09:00 01/17/17 08:24 (Morphine Inj) 2 mg Q3H PRN IV PUSH 01/13/17 08:30 01/15/17 16:06 Sodium Chloride 1,000 ml @ 100 mls/hr Q10H IV 01/13/17 13:00 01/17/17 00:46 (Lovenox Inj) 40 mg Q24H SQ 01/13/17 13:00 01/16/17 12:38 (Ecotrin Ec) 81 mg DAILY PO 01/15/17 09:00 01/17/17 08:23 (Percocet 7.5-325 Mg) 1 tab Q4H PRN PO 01/14/17 18:15 01/16/17 20:47 (Tylenol) 650 mg Q4H PRN PO 01/16/17 14:30 (Benadryl) 25 mg Q4H PRN PO 01/16/17 14:30 01/16/17 14:31 A/P Assessment and Plan 22-year-old female with a history of sickle cell anemia, mini strokes with right -sided residual, and asthma presented to the ED with complaints of pain. Sickle cell pain crisis, hemoglobin dropped to 6.8 this morning. 1 unit PRBC ordered by night team. Check H&H post transfusion. -Pain management with IV morphine and by mouth Percocet, and Toradol -continue IVF for hydration, encouraged PO intake. She is on her home meds as well. Pt has been encouraged to get out of bed to chair and ambulate as tolerated. Encouraged used of IS q1hr while awake. -She is been followed by [facility], --follows at [facility] CBC stable, recommended to discharge Home, and follow with her customer energy specialist on discharge. had been on exchange transfusions every other month for much of the past 10 years. Because of her iron overload, the alumni coordinator at [facility] recommended exchange transfusions be discontinued and initiate the patient on hydroxyurea which she takes at a dose of 1500 mg alternating with 2000 mg daily. frequent ER visits and hospitalizations for pain crises. In the year 2016, she has had ER visit/ hospitalizations in August, October and now in December. has history of ischemic Stroke, Asthma, Craniotomy for ischemic stroke, and Umbilical hernia repair, Port placement. UTI, with associated leukocytosis,leukocytosis has resolved. -Urine culture growing klebsiella PNA sensitive to bactrim. -Treated with Bactrim. Asthma, chronic -on home meds. Discussed with Patient, Nurse Miss Soler and with her Grandmother Mrs. Kerrie Syed in the room Discharge Planning Discharge Home the patient states she has one whole bottle of pain medicine at home. Semaj Moralez MD Jan 17, 2017 12:21
--- NOTE | 2017-01-17 12:27 | HHI.DS ---
Discharge Summary Admission Date Jan 12, 2017 at 22:31 Discharge Date: Jan 17, 2017 Admitting Diagnosis sickle cell crisis, intractable pain, UTI (1) Sickle cell pain crisis ICD Code: D57.00 - Hb-SS disease with crisis, unspecified Diagnosis: Principal Status: Acute (2) Asthma ICD Code: J45.909 - Unspecified asthma, uncomplicated Diagnosis: Secondary Status: Chronic (3) Urinary tract infection ICD Code: N39.0 - Urinary tract infection, site not specified Diagnosis: Principal Status: Acute Procedures Blood transfusion. Brief History - From Admission 21-year-old female with a history of sickle cell anemia, mini strokes with right -sided residual, and asthma presented to the ED with complaints of pain. Patient describes the pain as an aching 10 out of 10 pain all over worse in her knees. Patient states for the last 6 months she has been having more sickle cell crisis pain and she has in the past. Prior to this she was getting prophylactic blood transfusions, that were discontinued due to iron overload. She denies any other associated symptoms, denies any chest pain, shortness of breath, fever or chills. She states the Dilaudid is not helping and that usually morphine helps better. Her network control operator that she follows is in [place]. CBC/BMP: 01/17/17 0610 01/17/17 0610 Significant Findings Laboratory Tests Test 01/15/17 04:15 01/16/17 05:45 01/16/17 19:50 01/16/17 20:30 Red Blood Count 2.06 MIL/MM3 (4.00-5.30) 1.79 MIL/MM3 (4.00-5.30) Hemoglobin 8.1 GM/DL (11.6-15.3) 6.8 GM/DL (11.6-15.3) 8.8 GM/DL (11.6-15.3) Hematocrit 23.1 % (35.0-46.0) 19.8 % (35.0-46.0) 25.7 % (35.0-46.0) Mean Corpuscular Volume 112.2 FL (80.0-100.0) 110.4 FL (80.0-100.0) Mean Corpuscular Hemoglobin 39.3 PG (27.0-34.0) 37.9 PG (27.0-34.0) Red Cell Distribution Width 18.5 % (11.6-17.2) 19.1 % (11.6-17.2) Monocytes (%) (Auto) 8.6 % (0.0-8.0) 8.7 % (0.0-8.0) Monocytes % 16 % (0-8) Nucleated Red Blood Cells 2 /100 WBC (0-0) 6 /100 WBC (0-0) Target Cells 2+ (NORMAL) 1+ (NORMAL) Ovalocytes 1+ (NORMAL) 1+ (NORMAL) Keratocytes 1+ (NORMAL) Blood Urea Nitrogen 6 MG/DL (7-18) Albumin 3.3 GM/DL (3.4-5.0) 3.0 GM/DL (3.4-5.0) Calcium Level 8.3 MG/DL (8.5-10.1) Alkaline Phosphatase 144 U/L (45-117) 139 U/L (45-117) Aspartate Amino Transf (AST/SGOT) 88 U/L (16-38) 65 U/L (16-38) Alanine Aminotransferase (ALT/SGPT) 77 U/L (9-42) 65 U/L (9-42) Total Bilirubin 2.1 MG/DL (0.2-1.0) 1.4 MG/DL (0.2-1.0) Direct Bilirubin 0.6 MG/DL (0.0-0.2) Sodium Level 134 MEQ/L (136-145) 134 MEQ/L (136-145) Indirect Bilirubin 1.5 MG/DL (0.0-0.8) Neutrophils % (Manual) 79 % (16-70) Neutrophils # (Manual) 8.4 TH/MM3 (1.8-7.7) Urine Urobilinogen GREATER THAN 12.0 MG/DL Urine Leukocyte Esterase SMALL (NEG) Urine Bacteria RARE /hpf (NONE) Test 01/17/17 06:10 Red Blood Count 2.31 MIL/MM3 (4.00-5.30) Hemoglobin 8.5 GM/DL (11.6-15.3) Hematocrit 23.9 % (35.0-46.0) Mean Corpuscular Volume 103.6 FL (80.0-100.0) Mean Corpuscular Hemoglobin 37.0 PG (27.0-34.0) Red Cell Distribution Width 22.5 % (11.6-17.2) Monocytes (%) (Auto) 12.1 % (0.0-8.0) Monocytes # (Auto) 1.2 TH/MM3 (0-0.9) Neutrophils % (Manual) 79 % (16-70) Neutrophils # (Manual) 8.0 TH/MM3 (1.8-7.7) Nucleated Red Blood Cells 5 /100 WBC (0-0) Sickle Cells 1+ (NORMAL) Target Cells 1+ (NORMAL) Ovalocytes 1+ (NORMAL) Albumin 2.9 GM/DL (3.4-5.0) Calcium Level 8.2 MG/DL (8.5-10.1) Alkaline Phosphatase 119 U/L (45-117) Aspartate Amino Transf (AST/SGOT) 59 U/L (16-38) Alanine Aminotransferase (ALT/SGPT) 60 U/L (9-42) Total Bilirubin 1.2 MG/DL (0.2-1.0) Imaging Last Impressions Chest X-Ray 01/12/17 1728 Signed Impressions: Service Date/Time: December 17:41 - CONCLUSION: No acute disease. Matt Carpio MD PE at Discharge GENERAL: This is a well-nourished, thin patient, appears tired but more comfortable. EYES: Extraocular motions intact. ENT: Nose without drainage. Airway patent. NECK: Trachea midline. CARDIOVASCULAR: Regular rate and rhythm without murmurs RESPIRATORY: Clear to auscultation. Breath sounds equal bilaterally. No wheezes GASTROINTESTINAL: Abdomen soft, non-tender, nondistended. MUSCULOSKELETAL: able to roll over for me to examine her, moves extremities more than before NEUROLOGICAL: appears tired. barely answers questions Hospital Course This is a pleasant 22 y/o Female with Sickle cell anemia, multiple admissions due to Sickle cell crisis, already seen by hematology and marine habitat resource specialist today, she is been followed by [facility], --follows at [facility] CBC stable, recommended to discharge Home, and follow with her hemodialysis patient care specialist on discharge. had been on exchange transfusions every other month for much of the past 10 years. Because of her iron overload, the network control operator at [facility] recommended exchange transfusions be discontinued and initiate the patient on hydroxyurea which she takes at a dose of 1500 mg alternating with 2000 mg daily. frequent ER visits and hospitalizations for pain crises. In the year 2016, she has had ER visit/ hospitalizations in August, October and now in December. has history of ischemic Stroke, Asthma, Craniotomy for ischemic stroke, and Umbilical hernia repair, Port placement. Seen in her bedroom in the presence of her Grandmother Mrs. Kerrie Syed, no new complaint already recommended for discharge by Hematology and marine habitat resource specialist. Assessment and Plan 22-year-old female with a history of sickle cell anemia, mini strokes with right -sided residual, and asthma presented to the ED with complaints of pain. Sickle cell pain crisis, hemoglobin dropped to 6.8 this morning. 1 unit PRBC ordered by night team. Check H&H post transfusion. -Pain management with IV morphine and by mouth Percocet, and Toradol -continue IVF for hydration, encouraged PO intake. She is on her home meds as well. Pt has been encouraged to get out of bed to chair and ambulate as tolerated. Encouraged used of IS q1hr while awake. -She is been followed by [facility], --follows at [facility] CBC stable, recommended to discharge Home, and follow with her hemodialysis patient care specialist on discharge. had been on exchange transfusions every other month for much of the past 10 years. Because of her iron overload, the network control operator at [facility] recommended exchange transfusions be discontinued and initiate the patient on hydroxyurea which she takes at a dose of 1500 mg alternating with 2000 mg daily. frequent ER visits and hospitalizations for pain crises. In the year 2016, she has had ER visit/ hospitalizations in August, October and now in December. has history of ischemic Stroke, Asthma, Craniotomy for ischemic stroke, and Umbilical hernia repair, Port placement. UTI, with associated leukocytosis,leukocytosis has resolved. -Urine culture growing klebsiella PNA sensitive to bactrim. -Treated with Bactrim. Asthma, chronic -on home meds. Discussed with Patient, Nurse Miss Soler and with her Grandmother Mrs. Kerrie Syed in the room Discharge Planning Discharge Home the patient states she has one whole bottle of pain medicine at home. Pt Condition on Discharge: Good Discharge Disposition: Discharge Home Discharge Time: > 30 minutes Discharge Instructions DIET: Follow Instructions for: As Tolerated, No Restrictions Activities you can perform: Regular-No Restrictions Semaj Moralez MD Jan 17, 2017 12:27
[2017-01-17] MEDS: ENOXAPARIN SODIUM 40 MG/0.4 ML SYRINGE SQ SCH (13:37)
== END 2017-01-17 15:00 | disposition home or self-care (01) | DRG 812 ==
LOC: NEPC 16:54 → NEDA 22:31 → HOCA 01-13 00:14
PROVIDERS: ADMIT Internal Medicine; ATTEND Internal Medicine
PROC: 30233N1 Transfusion of Nonautologous Red Blood Cells into Peripheral Vein, Percutaneous Approach (ICD-10-PCS; principal; 2017-01-16)
DX: D57.00 Hb-SS disease with crisis, unspecified (principal); E83.111 Hemochromatosis due to repeated red blood cell transfusions; N39.0 Urinary tract infection, site not specified; B96.1 Klebsiella pneumoniae [K. pneumoniae] as the cause of diseases classified elsewhere; J45.909 Unspecified asthma, uncomplicated; Z86.73 Personal history of transient ischemic attack (TIA), and cerebral infarction without residual deficits
CPT/HCPCS: 36430; 71010; 80048; 80053; 80076; 81001; 83735; 84703; 85007; 85014; 85018; 85025; 85027; 85044; 86078; 86140; 86850; 86880; 86900; 86901; 86920; 87077; 87086; 87186; 94150; J1170; J1650; J1885; J2270; J2405; J7030; P9016

== ENCOUNTER 2017-04-19 18:03 | Inpatient (IN) | payer MEDICAID ==
[~2017-04-19] VITALS: Ht 165.1 cm; Wt 55.0 kg
[~2017-04-19 18:03] MED LIST changes: +ASPI-183 PO; -ASPI325T PO; +IBUP1TAB7 PO; -IBUP800T23 PO; -WALKER/FOLDING1 MIS
[2017-04-19 18:08] VITALS: BP 144/76; PULSE 94; RESP 18; TEMP 99.3; O2SAT 96
[2017-04-19 20:15] LABS: AUTOMATED NEUTROPHIL # 14.4 TH/MM3 (1.8-7.7); BASOPHIL # 0.1 TH/MM3 (0-0.2); BASOPHIL % 0.6 % (0.0-2.0); EOSINOPHIL # 0.4 TH/MM3 (0-0.4); EOSINOPHIL % 1.9 % (0.0-4.0); LYMPH % 18.5 % (9.0-44.0); LYMPHOCYTE # 3.9 TH/MM3 (1.0-4.8); MEAN CELL VOLUME 99.3 FL (80.0-100.0); MEAN CORPUSCULAR HEMOGLOBIN 35.8 PG (27.0-34.0); MONO % 10.1 % (0.0-8.0); NEUT % 68.9 % (16.0-70.0); PLATELET COUNT 264 TH/MM3 (150-450); RED BLOOD COUNT 1.86 MIL/MM3 (4.00-5.30); RED CELL DISTRIBUTION WIDTH 21.6 % (11.6-17.2); WHITE BLOOD COUNT 20.9 TH/MM3 (4.0-11.0)
[2017-04-19 20:18] LABS: HEMO FLAGS AUTO DIFF
[2017-04-19 20:19] LABS: REVIEW FLAG AUTO DIFF
[2017-04-19 20:22] LABS: HEMATOCRIT 18.5 % (35.0-46.0)
[2017-04-19 20:31] LABS: BICARBONATE 25.9 MEQ/L (21.0-32.0); POTASSIUM 3.7 MEQ/L (3.5-5.1)
--- NOTE | 2017-04-19 20:54 | PD ---
HPI Chief Complaint: Sickle Cell Time Seen by Provider: 20:53 Travel History International Travel<30 days: No Contact w/Intl Traveler<30days: No Traveled to known affect area: No History of Present Illness HPI 22-year-old female with history of sickle cell disease came to the emergency room with history of painful crisis on both lower extremities. Patient says it started this morning when she was in her class. Since then this has been progressively worsening. No history of shortness of breath. Vital signs are stable. She was seen in triage by the provider and workup was initiated. By the time she came to the room her blood work was back. Patient continues to be in pain. She has dramatic coach is Dr. Martinez and is on medications at home for her sickle cell disease. She says her last transfusion was last January. No history of fever or chills. PFSH Past Medical History Narrative Medical List of her past medical, surgical, social and family history is reviewed from the nursing note. Asthma: Yes Heart Rhythm Problems: No Cancer: No Cardiovascular Problems: No Congestive Heart Failure: No Cerebrovascular Accident: Yes (hx of ministrokes) Endocrine: No Genitourinary: No Immune Disorder: No Musculoskeletal: No Neurologic: Yes (brain sx) Psychiatric: No Reproductive: No Respiratory: Yes Migraines: No Seizures: No Sickle Cell Disease: Yes ?: Not LMP: 04/07/2017 Past Surgical History Abdominal Surgery: Yes (hernia repair 4 years old) Body Medical Devices: peircings Neurologic Surgery: Yes (brain 2006) Other Surgery: Yes Social History Alcohol Use: No Tobacco Use: No Substance Use: No Allergies-Medications (Allergen,Severity, Reaction): Coded Allergies: amoxicillin (Unverified Allergy, Intermediate, hives, 12/27/16) Comments List of her allergies reviewed from the nursing note. Reported Meds & Prescriptions Reported Meds & Active Scripts Active Senna Plus 8.6-50 mg (Sennosides-Docusate Sodium) 1 Tab Tab 2 Tab PO BID Oxycodone-Acetaminophen 10-325 mg Tab 1 Tab PO Q4H PRN Montelukast (Montelukast Sodium) 10 Mg Tab 10 Mg PO HS Ketorolac (Ketorolac Tromethamine) 10 Mg Tab 10 Mg PO Q6HR Hydrea (Hydroxyurea) 500 Mg Cap 500 Mg PO DAILY Folic Acid 1 Mg Tablet 1 Mg PO DAILY Ventolin Hfa 18 GM Inh (Albuterol Sulfate) 90 Mcg/Act Aer 2 Puff INH Q4H PRN Aspirin 325 Mg Tab 325 Mg PO DAILY Ibuprofen 800 Mg Tab 800 Mg PO Q8H PRN Narrative Medication List of her home medications reviewed from the nursing note. Review of Systems Except as stated in HPI: all other systems reviewed are Neg Musculoskeletal: Positive: Pain Physical Exam Narrative GENERAL: Awake, alert, moderate distress SKIN: Focused skin assessment warm/dry. Pallor HEAD: Atraumatic. Normocephalic. EYES: Pupils equal and round. No scleral icterus. No injection or drainage. Pallor ENT: No nasal bleeding or discharge. Mucous membranes pink and moist. NECK: Trachea midline. No JVD. CARDIOVASCULAR: Regular rate and rhythm. No murmur appreciated. RESPIRATORY: No accessory muscle use. Clear to auscultation. Breath sounds equal bilaterally. GASTROINTESTINAL: Abdomen soft, non-tender, nondistended. Hepatic and splenic margins not palpable. MUSCULOSKELETAL: No obvious deformities. No clubbing. No cyanosis. No edema. NEUROLOGICAL: Awake and alert. No obvious cranial nerve deficits. Motor grossly within normal limits. Normal speech. PSYCHIATRIC: Appropriate mood and affect; insight and judgment normal. Data Data Last Documented VS Vital Signs Date Time Temp Pulse Resp B/P (MAP) Pulse Ox O2 Delivery O2 Flow Rate FiO2 04/19/17 20:58 68 18 117/74 (88) 98 Room Air 04/19/17 18:08 99.3 Orders Orders Complete Blood Count With Diff (04/19/17 18:28) Basic Metabolic Panel (Bmp) (04/19/17 18:28) Retic Count (04/19/17 18:28) Sodium Chlor 0.9% 1000 Ml Inj (Ns 1000 M (04/19/17 21:00) Morphine Inj (Morphine Inj) (04/19/17 21:00) Type And Screen (04/19/17 20:53) Red Blood Cells (Rbc) (04/19/17 20:53) Blood Product Administration (04/19/17 20:53) Sodium Chlor 0.9% 250 Ml Inj (Ns 250 Ml (04/19/17 21:00) Admit Order (Ed Use Only) (04/19/17 21:16) Labs Laboratory Tests Test 12/6/17 19:17 White Blood Count 20.9 TH/MM3 Red Blood Count 1.86 MIL/MM3 Hemoglobin 6.7 GM/DL Hematocrit 18.5 % Mean Corpuscular Volume 99.3 FL Mean Corpuscular Hemoglobin 35.8 PG Mean Corpuscular Hemoglobin Concent 36.0 % Red Cell Distribution Width 21.6 % Platelet Count 264 TH/MM3 Mean Platelet Volume 8.1 FL Neutrophils (%) (Auto) 68.9 % Lymphocytes (%) (Auto) 18.5 % Monocytes (%) (Auto) 10.1 % Eosinophils (%) (Auto) 1.9 % Basophils (%) (Auto) 0.6 % Neutrophils # (Auto) 14.4 TH/MM3 Lymphocytes # (Auto) 3.9 TH/MM3 Monocytes # (Auto) 2.1 TH/MM3 Eosinophils # (Auto) 0.4 TH/MM3 Basophils # (Auto) 0.1 TH/MM3 CBC Comment AUTO DIFF Reticulocyte Count 14.0 % Absolute Reticulocyte Count 261.6 MIL/L Blood Urea Nitrogen 7 MG/DL Creatinine 0.62 MG/DL Random Glucose 100 MG/DL Calcium Level 8.5 MG/DL Sodium Level 140 MEQ/L Potassium Level 3.7 MEQ/L Chloride Level 106 MEQ/L Carbon Dioxide Level 25.9 MEQ/L Anion Gap 8 MEQ/L Estimat Glomerular Filtration Rate 148 ML/MIN MDM Medical Decision Making Medical Screen Exam Complete: Yes Emergency Medical Condition: Yes Medical Record Reviewed: Yes Differential Diagnosis Painful crisis, sickle cell disease, anemia Narrative Course 9:20 PM based on the blood test results patient was ordered for 2 units of blood transfusion. I have also given her IV fluid bolus and pain medication. Discussed the case with the hospitalist was accepted for admission. Bicycle Repairer can be consulted in the morning. Critical Care Narrative Aggregate critical care time was 30 minutes. Time to perform other separately billable procedures was not included in the critical care time. My time did not include minutes spent treating any other patients simultaneously or on activities that did not directly contribute to the patient's treatment. The services I provided to this patient were to treat and/or prevent clinically significant deterioration that could result in: Sickle cell anemia, blood transfusion, painful crisis I provided critical care services requiring my management, as noted below: Chart data review, documentation time, medication orders and management, vital sign assessments/reviewing monitor data, ordering and reviewing lab tests, ordering and interpreting/reviewing x-rays and diagnostic studies, care of the patient and discussion of the patient with the admitting physicians. Procedures EKG Prior to Arrival: No Diagnosis Primary Impression: Sickle cell anemia Qualified Codes: D57.00 - Hb-SS disease with crisis, unspecified Additional Impression: Sickle cell pain crisis Admitting Information Admitting Physician Requests: it Carolina Murphy MD Apr 19, 2017 20:54
[2017-04-19 20:58] VITALS: BP 117/74; PULSE 68; RESP 18; O2SAT 98
[2017-04-19] MEDS ORDERED: MORPHINE SULFATE 8 MG/ML INJ IV PUSH ONE (21:00)
[2017-04-19] MEDS ORDERED: SODIUM CHLOR 0.9% 1000 ML INJ 1,000 ML IV ONE (21:00)
[2017-04-19] MEDS ORDERED: SODIUM CHLOR 0.9% 250 ML INJ 250 ML IV ONE (21:00)
[2017-04-19 21:22] LABS: CORRECTED NUCLEATED RBC 4 /100 WBC (0-0); EOSINOPHILS 2 % (0-4); NEUTROPHIL # MANUAL DIFF 13.8 TH/MM3 (1.8-7.7); POLYS (SEG NEUTROPHILS) 66 % (16-70); WBC DIFF SAMPLE 100
[2017-04-19 21:24] LABS: ACANTHOCYTES 1+ (NORMAL); KERATOCYTES 1+ (NORMAL); OVALOCYTES 1+ (NORMAL); POLYCHROMASIA 4.5 % (0.0-1.9); SICKLE CELLS 2+ (NORMAL)
[2017-04-19 21:25] LABS: PLATELET ESTIMATE SMEAR NORMAL (NORMAL); PLATELET MORPHOLOGY NORMAL (NORMAL); SCAN/DIFF FINAL DIFF MANUAL
[2017-04-19] MEDS ORDERED: SODIUM CHLORIDE 0.9% FLUSH 10 ML FLUSH IV FLUSH PRN (21:30)
[2017-04-19] MEDS ORDERED: HYDROmorphone HCL PF 1 MG/ML VIAL IV PUSH PRN (21:30)
[2017-04-19] MEDS ORDERED: NALOXONE HCL 0.4 MG/ML AMP IV PUSH PRN (21:30)
[2017-04-19] MEDS ORDERED: ONDANSETRON HCL 4 MG/2 ML VIAL IVP PRN (21:30)
[2017-04-19 22:19] VITALS: BP 114/75; PULSE 104; RESP 16; O2SAT 96
[2017-04-19 23:43] VITALS: BP 113/81; PULSE 102; RESP 16; O2SAT 97
[2017-04-20] VITALS (13 sets, daily range): BP systolic 106–126; BP diastolic 52–86; PULSE 67–96; RESP 16–18; TEMP 97.7–98.8; O2SAT 93–100
[2017-04-20] MEDS: SODIUM CHLOR 0.9% 1000 ML INJ 1,000 ML IV SCH ×5 (00:18→20:22)
[2017-04-20 08:06] LABS: AUTOMATED NEUTROPHIL # 11.6 TH/MM3 (1.8-7.7); BASOPHIL # 0.1 TH/MM3 (0-0.2); BASOPHIL % 0.5 % (0.0-2.0); EOSINOPHIL # 0.3 TH/MM3 (0-0.4); EOSINOPHIL % 1.7 % (0.0-4.0); HEMATOCRIT 26.3 % (35.0-46.0); LYMPHOCYTE # 3.8 TH/MM3 (1.0-4.8); MEAN CELL VOLUME 93.3 FL (80.0-100.0); MEAN CORPUSCULAR HEMOGLOBIN 34.4 PG (27.0-34.0); MONO % 12.6 % (0.0-8.0); NEUT % 64.2 % (16.0-70.0); PLATELET COUNT 267 TH/MM3 (150-450); RED BLOOD COUNT 2.82 MIL/MM3 (4.00-5.30); RED CELL DISTRIBUTION WIDTH 18.5 % (11.6-17.2)
[2017-04-20 08:10] LABS: HEMO FLAGS AUTO DIFF; MEAN CORPUSCULAR HGB CONC 36.9 % (32.0-36.0)
[2017-04-20 08:32] LABS: BICARBONATE 22.5 MEQ/L (21.0-32.0); POTASSIUM 3.9 MEQ/L (3.5-5.1)
[2017-04-20] MEDS: SODIUM CHLORIDE 0.9% FLUSH 10 ML FLUSH IV FLUSH SCH ×2 (08:41→20:44)
[2017-04-20 09:06] LABS: CORRECTED NUCLEATED RBC 4 /100 WBC (0-0); EOSINOPHILS 3 % (0-4); NEUTROPHIL # MANUAL DIFF 11.7 TH/MM3 (1.8-7.7); PLATELET ESTIMATE SMEAR NORMAL (NORMAL); PLATELET MORPHOLOGY NORMAL (NORMAL); POLYS (SEG NEUTROPHILS) 65 % (16-70); SCAN/DIFF FINAL DIFF MANUAL; SICKLE CELLS 2+ (NORMAL); WBC DIFF SAMPLE 100
[2017-04-20 09:07] LABS: HOWELL-JOLLY BODIES PRESENT (NONE SEEN); POLYCHROMASIA 3.2 % (0.0-1.9)
[2017-04-20 09:08] LABS: TARGET CELLS 1+ (NORMAL)
--- NOTE | 2017-04-20 13:13 | HHI.HP ---
[facility] Unknown Admission Diagnosis sickle cell crisis, anemia, pain crisis Diagnoses: Chief Complaint: Pain Travel History International Travel<30 Days: No Contact w/Intl Traveler <30 Da: No Traveled to Known Affected Are: No History of Present Illness Patient is a 22-year-old female with known history of sickle cell pain states she follows up closely with Dr. Leon who came in yesterday because of generalized aches and pains. Patient states that she can barely move without any increasing pain. She takes some by mouth pain meds which were not working. Came to the ER and was also noted to be anemic. Patient denies any fever or chills denies any recent trauma. Her last blood transfusion he was in January 2017. Patient denies any melena or hematochezia. Her last LMP was 2 weeks ago regular 28-30 days cycle. Patient admitted and was transfused 2 units of RBC by the emergency room. Patient now admitted and given IV pain meds for control. Review of Systems Constitutional: DENIES: Fever, Weight loss, Chills, Change in appetite Eyes: DENIES: Blurred vision, Double Vision Ears, nose, mouth, throat: DENIES: Tinnitus, Ear Pain, Epistaxis, Odynophagia Respiratory: DENIES: Cough, Hemoptysis, Sputum production, Shortness of breath Cardiovascular: DENIES: Chest pain, Palpitations, Dyspnea on Exertion, Lower Extremity Edema, Orthopnea Gastrointestinal: DENIES: Black stools, Bloody stools, Difficulty Swallowing, Anorexia Genitourinary: DENIES: Urgency, Hematuria, Vaginal discharge Musculoskeletal: DENIES: Joint pain, Stiffness Integumentary: DENIES: Pruritus Hematologic/lymphatic: DENIES: Bruising Immunologic/allergic: DENIES: Urticaria Neurologic: DENIES: Headache, Speech Problems, Tremor Psychiatric: DENIES: Suicidal Ideation, Homicidal Ideation Past Family Social History Past Medical History Sickle cell anemia History of hyperreactive airway disease History of CVA many years ago no residual weakness. Past Surgical History Patient states port placed in the left chest wall. History of some form of brain surgery many years ago Reported Medications Senna Roxicodone Folic acid Ventilating Aspirin Ibuprofen Allergies: Coded Allergies: amoxicillin (Unverified Allergy, Intermediate, hives, 12/27/16) Family History Noncontributory Social History Patient denies smoking alcohol or substance abuse Physical Exam Vital Signs Vital Signs Date Time Temp Pulse Resp B/P (MAP) Pulse Ox O2 Delivery O2 Flow Rate FiO2 04/20/17 08:00 98.3 81 16 110/57 (74) 98 04/20/17 07:50 Room Air 04/20/17 06:49 97.7 79 18 112/59 98 04/20/17 04:20 98.5 86 16 106/52 (70) 100 04/20/17 04:00 98.5 88 116/60 100 04/20/17 04:00 78 04/20/17 03:36 98.4 82 18 125/65 100 04/20/17 03:00 Room Air 04/20/17 02:44 98.8 87 16 125/66 (85) 99 04/20/17 02:28 04/20/17 02:21 96 16 109/70 (83) 95 Room Air 04/20/17 00:21 98.5 96 16 123/81 96 04/20/17 00:03 98.0 91 16 126/86 96 04/19/17 23:43 102 16 113/81 (92) 97 Room Air 04/19/17 22:19 104 16 114/75 (88) 96 Room Air 04/19/17 20:58 68 18 117/74 (88) 98 Room Air 04/19/17 18:08 99.3 94 18 144/76 (98) 96 Room Air Physical Exam GENERAL: This is a well-nourished, well-developed patient, in no apparent distress. SKIN: No rashes, Cool and dry. HEAD: Atraumatic. Normocephalic. No temporal or scalp tenderness. EYES: Pupils equal round and reactive. Extraocular motions intact. No scleral icterus. No injection or drainage. ENT: Nose without bleeding, purulent drainage or septal hematoma. Throat without erythema, tonsillar hypertrophy or exudate. Uvula midline. Airway patent. NECK: Trachea midline. No JVD or lymphadenopathy. Supple, nontender, no meningeal signs. CARDIOVASCULAR: Regular rate and rhythm without murmurs, gallops, or rubs. RESPIRATORY: Clear to auscultation. Breath sounds equal bilaterally. No wheezes , rales, or rhonchi. Left side chest wall port in place GASTROINTESTINAL: Abdomen soft, non-tender, nondistended.No guarding. MUSCULOSKELETAL: Extremities without clubbing, cyanosis, or edema. No joint tenderness, effusion, or edema noted. No calf tenderness. Negative Homans sign bilaterally. NEUROLOGICAL: Awake and alert. Cranial nerves II through XII intact. Motor and sensory grossly within normal limits. Five out of 5 muscle strength in all muscle groups. Normal speech. Laboratory Laboratory Tests Test 04/19/17 19:17 04/20/17 07:23 White Blood Count 20.9 18.0 Red Blood Count 1.86 2.82 Hemoglobin 6.7 9.7 Hematocrit 18.5 26.3 Mean Corpuscular Volume 99.3 93.3 Mean Corpuscular Hemoglobin 35.8 34.4 Mean Corpuscular Hemoglobin Concent 36.0 36.9 Red Cell Distribution Width 21.6 18.5 Platelet Count 264 267 Mean Platelet Volume 8.1 7.9 Neutrophils (%) (Auto) 68.9 64.2 Lymphocytes (%) (Auto) 18.5 21.0 Monocytes (%) (Auto) 10.1 12.6 Eosinophils (%) (Auto) 1.9 1.7 Basophils (%) (Auto) 0.6 0.5 Neutrophils # (Auto) 14.4 11.6 Lymphocytes # (Auto) 3.9 3.8 Monocytes # (Auto) 2.1 2.3 Eosinophils # (Auto) 0.4 0.3 Basophils # (Auto) 0.1 0.1 CBC Comment AUTO DIFF AUTO DIFF Differential Total Cells Counted 100 100 Neutrophils % (Manual) 66 65 Lymphocytes % 24 28 Monocytes % 8 4 Eosinophils % 2 3 Neutrophils # (Manual) 13.8 11.7 Nucleated Red Blood Cells 4 4 Differential Comment FINAL DIFF MANUAL FINAL DIFF MANUAL Platelet Estimate NORMAL NORMAL Platelet Morphology Comment NORMAL NORMAL Polychromasia 4.5 3.2 Sickle Cells 2+ 2+ Ovalocytes 1+ Acanthocytes 1+ Keratocytes 1+ Reticulocyte Count 14.0 Absolute Reticulocyte Count 261.6 Blood Urea Nitrogen 7 4 Creatinine 0.62 0.47 Random Glucose 100 86 Calcium Level 8.5 8.0 Sodium Level 140 140 Potassium Level 3.7 3.9 Chloride Level 106 110 Carbon Dioxide Level 25.9 22.5 Anion Gap 8 8 Estimat Glomerular Filtration Rate 148 204 Target Cells 1+ [place] Bodies PRESENT Red Cell Morphology Comment Result Diagram: 04/20/1772204/20/17722 Caprini VTE Risk Assessment Caprini Risk Assessment Model Point Value = 1 Point Value = 2 Point Value = 3 Point Value = 5 Age 41-60 Minor surgery BMI > 25 kg/m2 Swollen legs Varicose veins or History of unexplained or recurrent spontaneous Oral contraceptives or hormone replacement Sepsis (< 1 month) Serious lung disease, including pneumonia (< 1 month) Abnormal pulmonary function Acute myocardial infarction Congestive heart failure (< 1 month) History of inflammatory bowel disease Medical patient at bed rest Age 61-74 Arthroscopic surgery Major open surgery (> 45 min) Laparoscopic surgery (> 45 min) Malignancy Confined to bed (> 72 hours) Immobilizing plaster cast Central venous access Age >= 75 History of VTE Family history of VTE Factor V Leiden Prothrombin 65036F Lupus anticoagulant Anticardiolipin antibodies Elevated serum homocysteine Heparin-induced thrombocytopenia Other congenital or acquired thrombophilia Stroke (< 1 month) Elective arthroplasty Hip, pelvis, or leg fracture Acute spinal cord injury (< 1 month) Prophylaxis Regimen Total Risk Factor Score Risk Level Prophylaxis Regimen 0-1 Low Early ambulation 2 Moderate Order ONE of the following: *Sequential Compression Device (SCD) *Heparin 5000 units SQ BID 3-4 Higher Order ONE of the following medications: *Heparin 5000 units SQ TID *Enoxaparin/Lovenox 40 mg SQ daily (WT < 150 kg, CrCl > 30 mL/min) *Enoxaparin/Lovenox 30 mg SQ daily (WT < 150 kg, CrCl > 10-29 mL/min) *Enoxaparin/Lovenox 30 mg SQ BID (WT < 150 kg, CrCl > 30 mL/min) AND/OR *Sequential Compression Device (SCD) 5 or more Highest Order ONE of the following medications: *Heparin 5000 units SQ TID (Preferred with Epidurals) *Enoxaparin/Lovenox 40 mg SQ daily (WT < 150 kg, CrCl > 30 mL/min) *Enoxaparin/Lovenox 30 mg SQ daily (WT < 150 kg, CrCl > 10-29 mL/min) *Enoxaparin/Lovenox 30 mg SQ BID (WT < 150 kg, CrCl > 30 mL/min) AND *Sequential Compression Device (SCD) Assessment and Plan Assessment and Plan 22-year-old female with Sickle cell crisis Sickle cell anemia. Patient on pain meds IV plus by mouth for control Status post blood transfusion H&H op. 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 Last blood transfusion was January 2017. History of CVA. 6 continue an aspirin. No residual. Encourage In ambulation. DC planning home with it pain control. Physician Certification Order for Inpatient Services The services are ordered in accordance with Medicare regulations or non- Medicare payer requirements, as applicable. In the case of services not specified as inpatient-only, they are appropriately provided as inpatient services in accordance with the 2-midnight benchmark. days is the estimated time the patient will need to remain in the hospital, assuming treatment plan goals are met and no additional complications. Meg Stanley MD Apr 20, 2017 13:13
[2017-04-21] VITALS: PULSE 74
[2017-04-21 00:10] VITALS: BP 119/66; PULSE 70; RESP 16; TEMP 98.5; O2SAT 100
[2017-04-21] MEDS: SODIUM CHLOR 0.9% 1000 ML INJ 1,000 ML IV SCH ×3 (00:46→09:50)
[2017-04-21 04:34] VITALS: BP 122/70; PULSE 65; RESP 16; TEMP 98.2; O2SAT 96
[2017-04-21 08:02] VITALS: BP 116/61; PULSE 75; RESP 20; TEMP 98.2; O2SAT 93
[2017-04-21] MEDS: SODIUM CHLORIDE 0.9% FLUSH 10 ML FLUSH IV FLUSH SCH (09:00)
--- NOTE | 2017-04-21 10:17 | HHI.PR ---
Subjective Remarks feeling much better no nausea or vomiting pain controlled- did not require much IV meds Objective Vitals Vital Signs Date Time Temp Pulse Resp B/P (MAP) Pulse Ox O2 Delivery O2 Flow Rate FiO2 04/21/17 08:02 98.2 75 20 116/61 (79) 93 04/21/17 04:34 98.2 65 16 122/70 (87) 96 04/21/17 00:10 98.5 70 16 119/66 (83) 100 04/21/17 00:00 74 04/20/17 20:43 98.4 86 16 120/66 (84) 98 04/20/17 20:00 Room Air 04/20/17 20:00 95 04/20/17 16:00 98.5 75 16 106/61 (76) 93 04/20/17 16:00 67 04/20/17 12:00 76 04/20/17 12:00 98.1 79 16 121/66 (84) 99 I/O 04/20/17 04/20/17 04/20/17 04/21/17 04/21/17 04/21/17 07:00 15:00 23:00 07:00 15:00 23:00 Intake Total 1905 ml 480 ml 2600 ml Output Total 650 ml 600 ml 2200 ml Balance 1255 ml -120 ml 400 ml Intake Oral 0 ml 480 ml 600 ml IV Total 1000 ml 2000 ml Packed Cells 800 ml Blood Product IV Normal Saline Flush 105 ml Output Urine Total 650 ml 600 ml 2200 ml # Bowel Movements 0 2 0 Result Diagram: 04/20/1772204/20/17722 Objective Remarks awqke and alert, orietned c3 anicteric'lungs clear regular rhythm abdomesoft extremities no edema A/P Assessment and Plan 22-year-old female with Sickle cell crisis- pain improved Sickle cell anemia. H and H stable Status post blood transfusion H&H op. 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 Last blood transfusion was January 2017. History of CVA. 6 continue an aspirin. No residual. Encourage In ambulation. HOme today FFup with PCP next week FF up Dr. warner- [facility] Meg Stanley MD Apr 21, 2017 10:17
[2017-04-21] MEDS ORDERED: PERC5TAB12 PO (10:19)
[2017-04-21] MEDS ORDERED: SODIUM CHLORIDE 0.9% FLUSH 10 ML FLUSH IV FLUSH PRN (14:00)
== END 2017-04-21 15:59 | disposition home or self-care (01) | DRG 812 ==
LOC: NEPE 18:03 → NEDA 21:18 → N04A 04-20 02:43
PROVIDERS: ADMIT Internal Medicine; ATTEND Internal Medicine
PROC: 30233N1 Transfusion of Nonautologous Red Blood Cells into Peripheral Vein, Percutaneous Approach (ICD-10-PCS; principal; 2017-04-20)
DX: D57.00 Hb-SS disease with crisis, unspecified (principal); J45.909 Unspecified asthma, uncomplicated; Z86.73 Personal history of transient ischemic attack (TIA), and cerebral infarction without residual deficits; Z88.1 Allergy status to other antibiotic agents
CPT/HCPCS: 36430; 80048; 85007; 85027; 85044; 86850; 86900; 86901; 86920; 99291; J1170; J1642; J2270; J7030; J7050; P9016

== ENCOUNTER 2017-08-18 15:33 | Emergency (ER) | payer MEDICAID ==
[~2017-08-18] VITALS: Ht 165.1 cm; Wt 55.0 kg
[~2017-08-18 15:33] MED LIST changes: -IBUP1TAB7 PO; -KETO10 PO; +PERC5TAB12 PO
[2017-08-18 15:40] VITALS: BP 113/62; PULSE 82; RESP 16; TEMP 96.5; O2SAT 98
[2017-08-18] MEDS ORDERED: DEFE1TAB2 PO (15:54)
[2017-08-18] MEDS ORDERED: SODIUM CHLOR 0.9% 1000 ML INJ 1,000 ML IV ONE ×2 (16:08→19:00)
[2017-08-18 16:52] LABS: AUTOMATED NEUTROPHIL # 12.9 TH/MM3 (1.8-7.7); BASOPHIL # 0.1 TH/MM3 (0-0.2); BASOPHIL % 0.5 % (0.0-2.0); EOSINOPHIL # 0.3 TH/MM3 (0-0.4); EOSINOPHIL % 1.7 % (0.0-4.0); HEMATOCRIT 22.9 % (35.0-46.0); HEMOGLOBIN 8.1 GM/DL (11.6-15.3); LYMPH % 14.9 % (9.0-44.0); LYMPHOCYTE # 2.7 TH/MM3 (1.0-4.8); MEAN CELL VOLUME 96.4 FL (80.0-100.0); MEAN CORPUSCULAR HEMOGLOBIN 34.1 PG (27.0-34.0); MEAN CORPUSCULAR HGB CONC 35.3 % (32.0-36.0); MEAN PLATELET VOLUME 8.1 FL (7.0-11.0); MONO % 11.7 % (0.0-8.0); MONOCYTE # 2.1 TH/MM3 (0-0.9); NEUT % 71.2 % (16.0-70.0); PLATELET COUNT 317 TH/MM3 (150-450); RED BLOOD COUNT 2.38 MIL/MM3 (4.00-5.30); RED CELL DISTRIBUTION WIDTH 22.9 % (11.6-17.2); RETIC # 242.8 MIL/L (20.0-150.0); RETIC % 10.2 % (0.4-3.0); WHITE BLOOD COUNT 18.1 TH/MM3 (4.0-11.0)
[2017-08-18 17:07] LABS: ALBUMIN 4.1 GM/DL (3.4-5.0); AST (GOT) 77 U/L (16-38); BLOOD UREA NITROGEN 6 MG/DL (7-18); CALCIUM 8.2 MG/DL (8.5-10.1); CHLORIDE 106 MEQ/L (98-107); CREATININE 0.72 MG/DL (0.50-1.00); GLOMERULAR FILTRATION RATE 125 ML/MIN (>89); GLUCOSE,RANDOM 87 MG/DL (74-106); SODIUM (NA) 139 MEQ/L (136-145)
[2017-08-18 17:14] LABS: ALKALINE PHOSPHATASE 109 U/L (45-117); ALT (GPT) 47 U/L (9-42); TOTAL PROTEIN 7.9 GM/DL (6.4-8.2)
[2017-08-18] MEDS ORDERED: MORPHINE SULFATE 2 MG/ML SYRINGE IV PUSH ONE ×2 (17:15→19:00)
--- NOTE | 2017-08-18 17:44 | RADRPT ---
EXAM DATE/TIME: 08/18/2017 16:37 [facility] COMPARISON: CHEST SINGLE AP, January 12, 2017, 17:41. INDICATIONS : Shortness of breath. MEDICAL HISTORY : Sickle Cell disease. CVA. SURGICAL HISTORY : Port. ENCOUNTER: Initial ACUITY: 1 day PAIN SCORE: 7/10 LOCATION: Bilateral chest FINDINGS: A single view of the chest demonstrates the lungs to be symmetrically aerated without evidence of mas s, infiltrate or effusion. The cardiomediastinal contours are unremarkable. Osseous structures are intact. [id number] catheter tip at cavoatrial junction. Bilateral nipple pins. CONCLUSION: The lungs are clear. Joe Ferguson MD on August 18, 2017 at 17:41 Board Certified Radiologist. This report was verified electronically.
[2017-08-18 18:15] LABS: BANDS 3 % (0-6); LYMPHOCYTES 15 % (9-44); METAMYELOCYTES 2 % (0-1); MONOCYTES 9 % (0-8); MYELOCYTES 2 % (0-0); NEUTROPHIL # MANUAL DIFF 13.4 TH/MM3 (1.8-7.7); POLYS (SEG NEUTROPHILS) 67 % (16-70)
[2017-08-18 18:16] LABS: OVALOCYTES 1+ (NORMAL); SICKLE CELLS 2+ (NORMAL)
[2017-08-18 18:17] LABS: BILIRUBIN, URINE NEG (NEG); BLOOD, URINE TRACE (NEG); GLUCOSE,URINE NEG (NEG); KETONE, URINE NEG (NEG); MUCUS URINE FEW /lpf (OCC); NITRITE,URINE NEG (NEG); SQUAMOUS EPITHELIAL CELL URINE 3 /hpf (0-5); URINE COLOR YELLOW (YELLW/STRAW); URINE LEUKOCYTE ESTERASE NEG (NEG)
[2017-08-18 18:52] VITALS: BP 132/59; PULSE 66; O2SAT 96
[2017-08-18] MEDS ORDERED: HYDR-3516 PO (18:52)
--- NOTE | 2017-08-18 18:59 | PD ---
HPI Chief Complaint: Sickle Cell Time Seen by Provider: 16:07 Travel History International Travel<30 days: No Contact w/Intl Traveler<30days: No Traveled to known affect area: No History of Present Illness HPI 22-year-old female here for evaluation of sickle cell crisis. Patient came by ambulance for evaluation of this. Per patient her pain is on the back. Patient the pain is 4 out of 10. She was given to morphine with improvement. She denies any fevers chills or sweats. Pain started a couple hours before coming. Denies any other medical issues. She follows with her oncologist every month. She denies any bleeding. No urinary or bowel movement issues. No cough or chills. No chest pain or shortness of breath. She has not taken anything for this. Per patient also takes his ibuprofen. Has an allergy to amoxicillin. Has not seen anybody for this. PFSH Past Medical History Asthma: Yes Heart Rhythm Problems: No Cancer: No Cardiovascular Problems: No Congestive Heart Failure: No COPD: No Cerebrovascular Accident: Yes (hx of ministrokes) Endocrine: No Genitourinary: No Immune Disorder: No Implanted Vascular Access Dvce: Yes Musculoskeletal: No Neurologic: Yes (brain sx) Psychiatric: No Reproductive: No Respiratory: Yes Migraines: No Seizures: No Sickle Cell Disease: Yes Sleep Apnea: No ?: Unknown LMP: 07/2017 Past Surgical History Abdominal Surgery: Yes (hernia repair 4 years old) AICD: No Arteriovenous Shunt: No Body Medical Devices: piercings b/l breast Cardiac Surgery: No Ear Surgery: No Endocrine Surgery: No Eye Surgery: No Genitourinary Surgery: No Gynecologic Surgery: No Insulin Pump: No Joint Replacement: No Neurologic Surgery: Yes (brain 2006) Oral Surgery: No Pacemaker: No Thoracic Surgery: No Other Surgery: Yes (port placement) Social History Alcohol Use: No Tobacco Use: No Substance Use: No Allergies-Medications (Allergen,Severity, Reaction): Coded Allergies: amoxicillin (Unverified Allergy, Intermediate, hives, 08/18/17) Reported Meds & Prescriptions Reported Meds & Active Scripts Active Hydrocodone-Acetamin 5-325 mg (Hydrocodone/Acetaminophen) 5 Mg-325 Mg Tablet 1 Tab PO Q6HR PRN Montelukast (Montelukast Sodium) 10 Mg Tab 10 Mg PO HS Hydrea (Hydroxyurea) 500 Mg Cap 500 Mg PO DAILY Folic Acid 1 Mg Tablet 1 Mg PO DAILY Ventolin Hfa 18 GM Inh (Albuterol Sulfate) 90 Mcg/Act Aer 2 Puff INH Q4H PRN Reported Jadenu (Deferasirox) 180 Mg Tab 180 Mg PO Review of Systems Except as stated in HPI: all other systems reviewed are Neg Physical Exam Narrative GENERAL: SKIN: Warm and dry. HEAD: Atraumatic. Normocephalic. EYES: Pupils equal and round. No scleral icterus. No injection or drainage. ENT: No nasal bleeding or discharge. Mucous membranes pink and moist. Tongue is midline. No uvula deviation. NECK: Trachea midline. No JVD. CARDIOVASCULAR: Regular rate and rhythm. No murmurs, S3, S4. RESPIRATORY: No accessory muscle use. Clear to auscultation. Breath sounds equal bilaterally. GASTROINTESTINAL: Abdomen soft, non-tender, nondistended. Hepatic and splenic margins not palpable. MUSCULOSKELETAL: Extremities without clubbing, cyanosis, or edema. No obvious deformities. Full range of motion of the upper and lower extremities bilaterally. 2+ pulses bilaterally. NEUROLOGICAL: Awake and alert. No obvious cranial nerve deficits. Motor grossly within normal limits. Five out of 5 muscle strength in the arms and legs. Normal speech. PSYCHIATRIC: Appropriate mood and affect; insight and judgment normal. Data Data Last Documented VS Vital Signs Date Time Temp Pulse Resp B/P (MAP) Pulse Ox O2 Delivery O2 Flow Rate FiO2 08/18/17 18:52 66 132/59 (83) 96 Room Air 08/18/17 15:40 96.5 16 Orders Orders Basic Metabolic Panel (Bmp) (08/18/17 16:08) Complete Blood Count With Diff (08/18/17 16:08) Comprehensive Metabolic Panel (08/18/17 16:08) Retic Count (08/18/17 16:08) Urinalysis - C+S If Indicated (08/18/17 16:08) Chest, Single Ap (08/18/17 16:08) Ecg Monitoring (08/18/17 16:08) Iv Access Insert/Monitor (08/18/17 16:08) Oximetry (08/18/17 16:08) Sodium Chlor 0.9% 1000 Ml Inj (Ns 1000 M (08/18/17 16:08) Morphine Inj (Morphine Inj) (08/18/17 17:15) Sodium Chlor 0.9% 1000 Ml Inj (Ns 1000 M (08/18/17 19:00) Morphine Inj (Morphine Inj) (08/18/17 19:00) Ed Discharge Order (08/18/17 18:53) Labs Laboratory Tests Test 08/18/17 16:20 08/18/17 17:36 White Blood Count 18.1 TH/MM3 Red Blood Count 2.38 MIL/MM3 Hemoglobin 8.1 GM/DL Hematocrit 22.9 % Mean Corpuscular Volume 96.4 FL Mean Corpuscular Hemoglobin 34.1 PG Mean Corpuscular Hemoglobin Concent 35.3 % Red Cell Distribution Width 22.9 % Platelet Count 317 TH/MM3 Mean Platelet Volume 8.1 FL Neutrophils (%) (Auto) 71.2 % Lymphocytes (%) (Auto) 14.9 % Monocytes (%) (Auto) 11.7 % Eosinophils (%) (Auto) 1.7 % Basophils (%) (Auto) 0.5 % Neutrophils # (Auto) 12.9 TH/MM3 Lymphocytes # (Auto) 2.7 TH/MM3 Monocytes # (Auto) 2.1 TH/MM3 Eosinophils # (Auto) 0.3 TH/MM3 Basophils # (Auto) 0.1 TH/MM3 CBC Comment AUTO DIFF Differential Total Cells Counted 100 Neutrophils % (Manual) 67 % Band Neutrophils % 3 % Lymphocytes % 15 % Monocytes % 9 % Eosinophils % 2 % Neutrophils # (Manual) 13.4 TH/MM3 Metamyelocytes 2 % Myelocytes 2 % Differential Comment FINAL DIFF MANUAL Platelet Estimate NORMAL Platelet Morphology Comment ENLARGED Sickle Cells 2+ Ovalocytes 1+ Reticulocyte Count 10.2 % Absolute Reticulocyte Count 242.8 MIL/L Blood Urea Nitrogen 6 MG/DL Creatinine 0.72 MG/DL Random Glucose 87 MG/DL Total Protein 7.9 GM/DL Albumin 4.1 GM/DL Calcium Level 8.2 MG/DL Alkaline Phosphatase 109 U/L Aspartate Amino Transf (AST/SGOT) 77 U/L Alanine Aminotransferase (ALT/SGPT) 47 U/L Total Bilirubin 3.0 MG/DL Sodium Level 139 MEQ/L Potassium Level 3.9 MEQ/L Chloride Level 106 MEQ/L Carbon Dioxide Level 24.0 MEQ/L Anion Gap 9 MEQ/L Estimat Glomerular Filtration Rate 125 ML/MIN Urine Color YELLOW Urine Turbidity CLEAR Urine pH 6.0 Urine Specific [place] 1.013 Urine Protein TRACE mg/dL Urine Glucose (UA) NEG mg/dL Urine Ketones NEG mg/dL Urine Occult Blood TRACE Urine Nitrite NEG Urine Bilirubin NEG Urine Urobilinogen 2.0 MG/DL Urine Leukocyte Esterase NEG Urine WBC 1 /hpf Urine Squamous Epithelial Cells 3 /hpf Urine Mucus FEW /lpf Microscopic Urinalysis Comment CULT NOT INDICATED MDM Medical Decision Making Medical Screen Exam Complete: Yes Emergency Medical Condition: Yes Medical Record Reviewed: Yes Interpretation(s) CBC & BMP Diagram 08/18/17 16:20 Total Protein 7.9, Albumin 4.1, Calcium Level 8.2 L, Alkaline Phosphatase 109, Aspartate Amino Transf (AST/SGOT) 77 H, Alanine Aminotransferase (ALT/SGPT) 47 H , Total Bilirubin 3.0 H ret count in the 280s UA negative Last Impressions Chest X-Ray 08/18/17 1608 Signed Impressions: Service Date/Time: Friday, August 18, 2017 16:37 - CONCLUSION: The lungs are clear. Joe Ferguson MD Differential Diagnosis Sickle cell disease versus sickle cell anemia versus leukocytosis versus normal exam versus dehydration Narrative Course 22-year-old female that presents to the ED for evaluation of back pain and probable sickle cell crisis. Patient was properly examined and was found to have signs and symptoms consistent appears to be sickle cell disease. She has a significant history of this in the past. She does need a transfusion in the past. Patient had resolution of some of discomfort with the morphine every given by ambulance. Labs and imaging were ordered. Labs and imaging were essentially unremarkable other than for chronic anemia but not significant and no signs of infection. Patient was given IV pain medications and fluids with improvement of symptoms. Patient feels better. I spoke with patient as well as mother in regards to a trial of outpatient treatment versus admission. They prefer to try outpatient treatment. Patient given 1 more dose of pain medication another liter of fluids. She will be given a prescription for Lortab. Told to follow-up with PCP. See ED worsening symptoms. She understands reasons to come back. Diagnosis Primary Impression: Sickle cell pain crisis Patient Instructions: Narcotic given in the ED, General Instructions Additional Instructions: Take medications as prescribed. Follow-up with PCP. See ED for any worsening symptoms. Do not drink or drive while taking pain medication. Apply ice or heat as needed for pain Med/Other Pt SpecificInfo: Prescription(s) given Scripts Hydrocodone/Acetaminophen (Hydrocodone-Acetamin 5-325 mg) 5 Mg-325 Mg Tablet 1 TAB PO Q6HR Y for PAIN SCALE 1 TO 10, #12 Prov: Javier Canales MD 08/18/17 Disposition: 01 DISCHARGE HOME Condition: Lauri Carrion Aug 18, 2017 18:59
[2017-08-18 19:57] VITALS: BP 123/80; PULSE 85; RESP 14; O2SAT 100
== END 2017-08-18 20:10 | disposition home or self-care (01) ==
LOC: NEPE 15:33
DX: D57.00 Hb-SS disease with crisis, unspecified (principal); M54.9 Dorsalgia, unspecified; J45.909 Unspecified asthma, uncomplicated; Z86.73 Personal history of transient ischemic attack (TIA), and cerebral infarction without residual deficits; Z88.0 Allergy status to penicillin
CPT/HCPCS: 71045; 80053; 81001; 85007; 85027; 85044; 96361; 96374; 99284; J2270; J7030

== ENCOUNTER 2017-08-30 15:25 | Inpatient (IN) | payer MEDICAID ==
[~2017-08-30] VITALS: Ht 165.1 cm; Wt 54.5 kg
[~2017-08-30 15:25] MED LIST changes: -ASPI-183 PO; +DEFE1TAB2 PO; +HYDR-3516 PO; -OXYC1TAB36 PO; -PERC5TAB12 PO; -SENN1TAB PO
[2017-08-30 15:31] VITALS: BP 136/70; PULSE 100; RESP 18; TEMP 98.5; O2SAT 92
[2017-08-30] MEDS ORDERED: SODIUM CHLOR 0.9% 1000 ML INJ 1,000 ML IV ONE (16:30)
[2017-08-30] MEDS ORDERED: MORPHINE SULFATE 8 MG/ML INJ IV PUSH ONE (16:30)
[2017-08-30] MEDS ORDERED: SODIUM CHLORIDE 0.9% FLUSH 10 ML FLUSH IVF PRN (16:30)
[2017-08-30] MEDS ORDERED: ONDANSETRON HCL 4 MG/2 ML VIAL IV PUSH ONE (16:30)
--- NOTE | 2017-08-30 16:48 | PD ---
HPI Chief Complaint: Sickle Cell Time Seen by Provider: 16:14 Travel History International Travel<30 days: No Contact w/Intl Traveler<30days: No Traveled to known affect area: No History of Present Illness HPI 22-year-old female presents to the emergency department for evaluation of sickle cell crisis. Patient reports lower back pain and chest pain. Patient denies any shortness of breath. Current pain as 5/10, throbbing. She denies any other medical history. Patient denies any chance of . She states that she was prescribed hydrocodone and ibuprofen for home which are not helping her pain. She states that she normally gets sporadic crisis is, but has had 3 recently. No alleviating or exacerbating factors. Moderate severity. Patient's oncologist is Dr. Mcgregor. [facility] Past Medical History Asthma: Yes Heart Rhythm Problems: No Cancer: No Cardiovascular Problems: No Congestive Heart Failure: No COPD: No Cerebrovascular Accident: Yes (hx of ministrokes) Endocrine: No Genitourinary: No Immune Disorder: No Implanted Vascular Access Dvce: Yes (left chest) Musculoskeletal: No Neurologic: Yes (brain sx) Psychiatric: No Reproductive: No Respiratory: Yes Migraines: No Seizures: No Sickle Cell Disease: Yes Sleep Apnea: No Influenza Vaccination: No ?: Unknown Past Surgical History Abdominal Surgery: Yes (hernia repair 4 years old) AICD: No Arteriovenous Shunt: No Body Medical Devices: piercings b/l breast Cardiac Surgery: No Ear Surgery: No Endocrine Surgery: No Eye Surgery: No Genitourinary Surgery: No Gynecologic Surgery: No Insulin Pump: No Joint Replacement: No Neurologic Surgery: Yes (brain 2006) Oral Surgery: No Pacemaker: No Thoracic Surgery: No Other Surgery: Yes (port placement) Social History Alcohol Use: No Tobacco Use: No Substance Use: No Allergies-Medications (Allergen,Severity, Reaction): Coded Allergies: amoxicillin (Unverified Allergy, Intermediate, hives, 08/30/17) Reported Meds & Prescriptions Reported Meds & Active Scripts Active Hydrocodone-Acetamin 5-325 mg (Hydrocodone/Acetaminophen) 5 Mg-325 Mg Tablet 1 Tab PO Q6HR PRN Montelukast (Montelukast Sodium) 10 Mg Tab 10 Mg PO HS Hydrea (Hydroxyurea) 500 Mg Cap 500 Mg PO DAILY Folic Acid 1 Mg Tablet 1 Mg PO DAILY Ventolin Hfa 18 GM Inh (Albuterol Sulfate) 90 Mcg/Act Aer 2 Puff INH Q4H PRN Reported Jadenu (Deferasirox) 180 Mg Tab 180 Mg PO Review of Systems Except as stated in HPI: all other systems reviewed are Neg Physical Exam Narrative GENERAL: Well-nourished, well-developed female patient, afebrile. SKIN: Focused skin assessment warm/dry. HEAD: Normocephalic. Atraumatic EYES: No scleral icterus. No injection or drainage. NECK: Supple, trachea midline. No JVD or lymphadenopathy. CARDIOVASCULAR: Regular rate and rhythm without murmurs, gallops, or rubs. RESPIRATORY: Breath sounds equal bilaterally. No accessory muscle use. Lungs sounds are clear to auscultation. GASTROINTESTINAL: Abdomen soft, non-tender, nondistended. MUSCULOSKELETAL: No cyanosis, or edema. BACK: Nontender without obvious deformity. No CVA tenderness. Data Data Last Documented VS Vital Signs Date Time Temp Pulse Resp B/P (MAP) Pulse Ox O2 Delivery O2 Flow Rate FiO2 08/30/17 15:31 98.5 100 18 136/70 (92) 92 Orders Orders Complete Blood Count With Diff (08/30/17 16:30) Comprehensive Metabolic Panel (08/30/17 16:30) Retic Count (08/30/17 16:30) Urinalysis - C+S If Indicated (08/30/17 16:30) Chest, Single Ap (08/30/17 16:30) Ecg Monitoring (08/30/17 16:30) Iv Access Insert/Monitor (08/30/17 16:30) Oximetry (08/30/17 16:30) Sodium Chloride 0.9% Flush (Ns Flush) (08/30/17 16:30) Creatine Kinase (Cpk) (08/30/17 16:30) Troponin I (08/30/17 16:30) Morphine Inj (Morphine Inj) (08/30/17 16:30) Ondansetron Inj (Zofran Inj) (08/30/17 16:30) Sodium Chlor 0.9% 1000 Ml Inj (Ns 1000 M (08/30/17 16:30) Ed Urine Pregnancytest Poc (08/30/17 16:30) Electrocardiogram (08/30/17 ) Hydromorphone Pf Inj (Dilaudid Pf Inj) (08/30/17 18:45) Ketorolac Inj (Toradol Inj) (08/30/17 18:45) Diphenhydramine Inj (Benadryl Inj) (08/30/17 18:45) Urine Culture (08/30/17 17:18) Ceftriaxone Inj (Rocephin Inj) (08/30/17 19:30) Admit Order (Ed Use Only) (08/30/17 20:03) Labs Laboratory Tests Test 08/30/17 16:40 08/30/17 17:18 White Blood Count 13.2 TH/MM3 Red Blood Count 2.16 MIL/MM3 Hemoglobin 7.5 GM/DL Hematocrit 20.7 % Mean Corpuscular Volume 96.0 FL Mean Corpuscular Hemoglobin 34.9 PG Mean Corpuscular Hemoglobin Concent 36.4 % Red Cell Distribution Width 24.5 % Platelet Count 296 TH/MM3 Mean Platelet Volume 8.1 FL Neutrophils (%) (Auto) 67.4 % Lymphocytes (%) (Auto) 20.1 % Monocytes (%) (Auto) 10.7 % Eosinophils (%) (Auto) 1.3 % Basophils (%) (Auto) 0.5 % Neutrophils # (Auto) 8.9 TH/MM3 Lymphocytes # (Auto) 2.7 TH/MM3 Monocytes # (Auto) 1.4 TH/MM3 Eosinophils # (Auto) 0.2 TH/MM3 Basophils # (Auto) 0.1 TH/MM3 CBC Comment AUTO DIFF Reticulocyte Count 15.0 % Absolute Reticulocyte Count 324.9 MIL/L Blood Urea Nitrogen 8 MG/DL Creatinine 0.68 MG/DL Random Glucose 95 MG/DL Total Protein 7.9 GM/DL Albumin 4.2 GM/DL Calcium Level 8.8 MG/DL Alkaline Phosphatase 104 U/L Aspartate Amino Transf (AST/SGOT) 74 U/L Alanine Aminotransferase (ALT/SGPT) 57 U/L Total Bilirubin 3.1 MG/DL Sodium Level 142 MEQ/L Potassium Level 4.2 MEQ/L Chloride Level 110 MEQ/L Carbon Dioxide Level 26.8 MEQ/L Anion Gap 5 MEQ/L Estimat Glomerular Filtration Rate 133 ML/MIN Total Creatine Kinase 86 U/L Troponin I LESS THAN 0.02 NG/ML Urine Color YELLOW Urine Turbidity HAZY Urine pH 5.5 Urine Specific [place] 1.014 Urine Protein TRACE mg/dL Urine Glucose (UA) NEG mg/dL Urine Ketones NEG mg/dL Urine Occult Blood MOD Urine Nitrite NEG Urine Bilirubin NEG Urine Urobilinogen 2.0 MG/DL Urine Leukocyte Esterase LARGE Urine RBC 7 /hpf Urine WBC 110 /hpf Urine Squamous Epithelial Cells 24 /hpf Urine Amorphous Sediment RARE Urine Bacteria OCC /hpf Urine Mucus FEW /lpf Microscopic Urinalysis Comment CULTURE INDICATED MDM Medical Decision Making Medical Screen Exam Complete: Yes Emergency Medical Condition: Yes Medical Record Reviewed: Yes Interpretation(s) Last Impressions Chest X-Ray 08/30/17 1630 Signed Impressions: Service Date/Time: Wednesday, August 30, 2017 16:40 - CONCLUSION: Lungs are clear. Arden Velasco MD Differential Diagnosis Sickle cell crisis versus acute chest syndrome versus dehydration Narrative Course 22-year-old female presents to the emergency department for sickle cell crisis. Patient's port is accessed. EKG, CBC, BMP, retic count, CK, troponin, UA, urine test are ordered and pending. Patient is given morphine 61 g IV , Zofran 4 mg IV, normal saline 1 L IV bolus. Chest x-ray is ordered and pending. EKG shows sinus rhythm, heart rate 62, no acute ST changes. CBC shows leukocytosis 13.2, anemia with hemoglobin 7.5, hematocrit 20.7. BMP shows no acute abnormality. Retic count is 15.0, absolute reticulocyte 324.9. CK is 86. Troponin is less than 0.02. UA is positive for UTI 110 WBC, occasional bacteria. UPT is negative. Chest x-ray shows the lungs are clear. I discussed the case with attending physician, Dr. Canales, who agrees with plan. I discussed the case with environmental protection officer, Dr. Sarabia. She states this pain is uncontrolled, she can be admitted. Otherwise, the patient should see Dr. Mcgregor in the clinic tomorrow for possible transfusion. Patient is given Dilaudid 0.5 mg IV, Toradol 30 mg IV, Benadryl 25 mg IV. Patient is given Rocephin 1 g IV for UTI. Upon reassessment, patient states she does not feel comfortable going home due to pain. Patient will be admitted. [facility] is paged for admission. Dr. Ricardo accepted admission. Diagnosis Primary Impression: Sickle cell pain crisis Additional Impression: Urinary tract infection Qualified Codes: N30.00 - Acute cystitis without hematuria Admitting Information Admitting Physician Requests: Observation Migdalia Blanco Aug 30, 2017 16:48
--- NOTE | 2017-08-30 17:07 | RADRPT ---
EXAM DATE/TIME: 08/30/2017 16:40 [facility] COMPARISON: CHEST SINGLE AP, August 18, 2017, 16:37. INDICATIONS : Sickle cell crisis- Chest pain and shortness of breath. MEDICAL HISTORY : Sickle Cell disease. CVA. SURGICAL HISTORY : Port. ENCOUNTER: Initial ACUITY: 1 day PAIN SCORE: 5/10 LOCATION: Bilateral chest FINDINGS: A single view of the chest demonstrates the lungs to be symmetrically aerated without evidence of mas s, infiltrate or effusion. The cardiomediastinal contours are unremarkable. Left IJ [id number] w ith the tip projecting over the central venous system. Osseous structures are intact. CONCLUSION: Lungs are clear. Arden Velasco MD on August 30, 2017 at 16:57 Board Certified Radiologist. This report was verified electronically.
[2017-08-30 17:11] LABS: AUTOMATED NEUTROPHIL # 8.9 TH/MM3 (1.8-7.7); BASOPHIL # 0.1 TH/MM3 (0-0.2); BASOPHIL % 0.5 % (0.0-2.0); EOSINOPHIL # 0.2 TH/MM3 (0-0.4); EOSINOPHIL % 1.3 % (0.0-4.0); HEMOGLOBIN 7.5 GM/DL (11.6-15.3); LYMPH % 20.1 % (9.0-44.0); LYMPHOCYTE # 2.7 TH/MM3 (1.0-4.8); MEAN CORPUSCULAR HEMOGLOBIN 34.9 PG (27.0-34.0); MEAN PLATELET VOLUME 8.1 FL (7.0-11.0); MONO % 10.7 % (0.0-8.0); MONOCYTE # 1.4 TH/MM3 (0-0.9); NEUT % 67.4 % (16.0-70.0); PLATELET COUNT 296 TH/MM3 (150-450); RED BLOOD COUNT 2.16 MIL/MM3 (4.00-5.30); RED CELL DISTRIBUTION WIDTH 24.5 % (11.6-17.2); RETIC # 324.9 MIL/L (20.0-150.0); WHITE BLOOD COUNT 13.2 TH/MM3 (4.0-11.0)
[2017-08-30 17:34] LABS: MEAN CORPUSCULAR HGB CONC 36.4 % (32.0-36.0)
[2017-08-30 17:40] LABS: HEMATOCRIT 20.7 % (35.0-46.0)
[2017-08-30 18:06] LABS: ALBUMIN 4.2 GM/DL (3.4-5.0); ALKALINE PHOSPHATASE 104 U/L (45-117); ALT (GPT) 57 U/L (9-42); AST (GOT) 74 U/L (16-38); BICARBONATE 26.8 MEQ/L (21.0-32.0); BLOOD UREA NITROGEN 8 MG/DL (7-18); CALCIUM 8.8 MG/DL (8.5-10.1); CHLORIDE 110 MEQ/L (98-107); CREATININE 0.68 MG/DL (0.50-1.00); GLOMERULAR FILTRATION RATE 133 ML/MIN (>89); GLUCOSE,RANDOM 95 MG/DL (74-106); SODIUM (NA) 142 MEQ/L (136-145); TOTAL BILIRUBIN ADULT 3.1 MG/DL (0.2-1.0); TOTAL PROTEIN 7.9 GM/DL (6.4-8.2); TROPONIN I LESS THAN 0.02 NG/ML (0.02-0.05)
[2017-08-30 18:38] LABS: AMORPHOUS SEDIMENT, URINE RARE; BACTERIA, URINE OCC /hpf; BILIRUBIN, URINE NEG (NEG); BLOOD, URINE MOD (NEG); GLUCOSE,URINE NEG (NEG); KETONE, URINE NEG (NEG); MUCUS URINE FEW /lpf (OCC); NITRITE,URINE NEG (NEG); PH, URINE 5.5 (5.0-8.5); SQUAMOUS EPITHELIAL CELL URINE 24 /hpf (0-5); URINE COLOR YELLOW (YELLW/STRAW); URINE LEUKOCYTE ESTERASE LARGE (NEG)
[2017-08-30] MEDS ORDERED: KETOROLAC TROMETHAMINE 30 MG/ML (IVP) VIAL IV PUSH ONE (18:45)
[2017-08-30] MEDS ORDERED: diphenhydrAMINE HCL 50 MG/ML VIAL IV PUSH ONE (18:45)
[2017-08-30] MEDS ORDERED: HYDROmorphone HCL PF 0.5 MG/0.5 ML SYRINGE IV PUSH ONE (18:45)
[2017-08-30] MEDS ORDERED: cefTRIAXone INJ 1,000 MG in SODIUM CHLORIDE 0.9% INJ 100 ML IV ONE (19:30)
[2017-08-30 20:41] LABS: CORRECTED NUCLEATED RBC 8 /100 WBC (0-0); LYMPHOCYTES 14 % (9-44); MONOCYTES 8 % (0-8); NEUTROPHIL # MANUAL DIFF 10.2 TH/MM3 (1.8-7.7); NUCLEATED RED BLOOD CELL 8 (0-0); POLYS (SEG NEUTROPHILS) 77 % (16-70)
[2017-08-30 20:42] LABS: SICKLE CELLS 2+ (NORMAL); TARGET CELLS 2+ (NORMAL)
[2017-08-30 20:43] LABS: HOWELL-JOLLY BODIES PRESENT (NONE SEEN); OVALOCYTES 2+ (NORMAL); STOMATOCYTES 1+ (NORMAL)
[2017-08-30 20:58] VITALS: BP 114/74; PULSE 73; RESP 14; O2SAT 97
[2017-08-30] MEDS ORDERED: SENNOSIDES 8.6 MG TAB PO PRN (22:15)
[2017-08-30] MEDS ORDERED: SODIUM CHLORIDE 0.9% FLUSH 10 ML FLUSH IV FLUSH PRN (22:15)
[2017-08-30] MEDS ORDERED: MAGNESIUM HYDROXIDE SUSP 30 ML CUP PO PRN (22:15)
[2017-08-30] MEDS ORDERED: ACETAMINOPHEN 325 MG TAB PO PRN (22:15)
[2017-08-30] MEDS ORDERED: HYDROmorphone HCL PF 1 MG/ML VIAL IV PUSH PRN (22:15)
[2017-08-30] MEDS ORDERED: LACTULOSE SYRUP 20 GM/30 ML CUP PO PRN (22:15)
[2017-08-30] MEDS ORDERED: BISACODYL 10 MG SUPP RECTAL PRN (22:15)
[2017-08-30] MEDS ORDERED: NALOXONE HCL 0.4 MG/ML AMP IV PUSH PRN (22:15)
[2017-08-30] MEDS: SODIUM CHLOR 0.9% 1000 ML INJ 1,000 ML IV SCH (22:52)
[2017-08-30 23:20] VITALS: BP 107/58; PULSE 55; RESP 15; O2SAT 100
[2017-08-31] VITALS (10 sets, daily range): BP systolic 96–121; BP diastolic 52–95; PULSE 73–104; RESP 16–18; TEMP 98.3–99.1; O2SAT 84–100
[2017-08-31] MEDS: HYDROmorphone HCL PF 2 MG/ML VIAL IV PUSH PRN ×5 (00:25→21:59)
--- NOTE | 2017-08-31 01:57 | HHI.HP ---
[facility] Primary Care Physician Evita Mcgregor MD Admission Diagnosis sickle cell crisis, anemia Diagnoses: Travel History International Travel<30 Days: No Contact w/Intl Traveler <30 Da: No Traveled to Known Affected Are: No History of Present Illness 22-year-old female with a past medical history significant for sickle cell disease and asthma presents to the emergency department for evaluation of pain crisis. The patient reports she has pain in her chest and back which is typical for her sickle cell crises. She states that she is not having any shortness of breath. Her pain is nonradiating. She denies any urinary symptoms such as frequency or dysuria. She has a history significant for transfusion hemosiderosis. She is severely anemic with an H&H of 7.5/20.7. She denies any abdominal pain. No nausea/vomiting/diarrhea. No lateralizing signs/symptoms. Denies fever/chills. Review of Systems Except as stated in HPI: all other systems reviewed are Neg Past Family Social History Past Medical History Sickle cell disease Asthma Past Surgical History Brain surgery for stroke in childhood Hernia repair Reported Medications Reported Meds & Active Scripts Active Hydrocodone-Acetamin 5-325 mg (Hydrocodone/Acetaminophen) 5 Mg-325 Mg Tablet 1 Tab PO Q6HR PRN Montelukast (Montelukast Sodium) 10 Mg Tab 10 Mg PO HS Hydrea (Hydroxyurea) 500 Mg Cap 500 Mg PO DAILY Folic Acid 1 Mg Tablet 1 Mg PO DAILY Ventolin Hfa 18 GM Inh (Albuterol Sulfate) 90 Mcg/Act Aer 2 Puff INH Q4H PRN Reported Jadenu (Deferasirox) 180 Mg Tab 180 Mg PO Allergies: Coded Allergies: amoxicillin (Unverified Allergy, Intermediate, hives, 08/30/17) Family History Negative for CAD/DM Social History Negative for alcohol, tobacco and illicit drugs. Physical Exam Vital Signs Vital Signs Date Time Temp Pulse Resp B/P (MAP) Pulse Ox O2 Delivery O2 Flow Rate FiO2 08/30/17 23:20 55 15 107/58 (74) 100 Room Air 08/30/17 20:58 73 14 114/74 (87) 97 Nasal Cannula 2.00 08/30/17 15:31 98.5 100 18 136/70 (92) 92 Physical Exam GENERAL: -Jordanian female lying in bed SKIN: No rashes, ecchymoses or lesions. Cool and dry. HEAD: Atraumatic. Normocephalic. No temporal or scalp tenderness. EYES: Pupils equal round and reactive. Extraocular motions intact. No scleral icterus. No injection or drainage. ENT: Nose without bleeding, purulent drainage or septal hematoma. Throat without erythema, tonsillar hypertrophy or exudate. Uvula midline. Airway patent. NECK: Trachea midline. No JVD or lymphadenopathy. Supple, nontender, no meningeal signs. CARDIOVASCULAR: Regular rate and rhythm. 07/18 QAMAR CHEST: Port in place in left chest RESPIRATORY: Clear to auscultation. Breath sounds equal bilaterally. No wheezes , rales, or rhonchi. GASTROINTESTINAL: Abdomen soft, non-tender, nondistended. No hepato-splenomegaly , or palpable masses. No guarding. MUSCULOSKELETAL: Extremities without clubbing, cyanosis, or edema. No joint tenderness, effusion, or edema noted. No calf tenderness. NEUROLOGICAL: Awake and alert. Cranial nerves II through XII intact. Motor and sensory grossly within normal limits. Normal speech. Laboratory Laboratory Tests Test 08/30/17 16:40 08/30/17 17:18 White Blood Count 13.2 Red Blood Count 2.16 Hemoglobin 7.5 Hematocrit 20.7 Mean Corpuscular Volume 96.0 Mean Corpuscular Hemoglobin 34.9 Mean Corpuscular Hemoglobin Concent 36.4 Red Cell Distribution Width 24.5 Platelet Count 296 Mean Platelet Volume 8.1 Neutrophils (%) (Auto) 67.4 Lymphocytes (%) (Auto) 20.1 Monocytes (%) (Auto) 10.7 Eosinophils (%) (Auto) 1.3 Basophils (%) (Auto) 0.5 Neutrophils # (Auto) 8.9 Lymphocytes # (Auto) 2.7 Monocytes # (Auto) 1.4 Eosinophils # (Auto) 0.2 Basophils # (Auto) 0.1 CBC Comment AUTO DIFF Differential Total Cells Counted 100 Neutrophils % (Manual) 77 Lymphocytes % 14 Monocytes % 8 Eosinophils % 1 Neutrophils # (Manual) 10.2 Nucleated Red Blood Cells 8 Differential Comment FINAL DIFF MANUAL Platelet Estimate NORMAL Platelet Morphology Comment NORMAL Basophilic Stippling MOD Sickle Cells 2+ Target Cells 2+ Ovalocytes 2+ Stomatocytes 1+ [place] Bodies PRESENT Reticulocyte Count 15.0 Absolute Reticulocyte Count 324.9 Blood Urea Nitrogen 8 Creatinine 0.68 Random Glucose 95 Total Protein 7.9 Albumin 4.2 Calcium Level 8.8 Alkaline Phosphatase 104 Aspartate Amino Transf (AST/SGOT) 74 Alanine Aminotransferase (ALT/SGPT) 57 Total Bilirubin 3.1 Sodium Level 142 Potassium Level 4.2 Chloride Level 110 Carbon Dioxide Level 26.8 Anion Gap 5 Estimat Glomerular Filtration Rate 133 Total Creatine Kinase 86 Troponin I LESS THAN 0.02 Urine Color YELLOW Urine Turbidity HAZY Urine pH 5.5 Urine Specific [place] 1.014 Urine Protein TRACE Urine Glucose (UA) NEG Urine Ketones NEG Urine Occult Blood MOD Urine Nitrite NEG Urine Bilirubin NEG Urine Urobilinogen 2.0 Urine Leukocyte Esterase LARGE Urine RBC 7 Urine WBC 110 Urine Squamous Epithelial Cells 24 Urine Amorphous Sediment RARE Urine Bacteria OCC Urine Mucus FEW Microscopic Urinalysis Comment CULTURE INDICATED Date/Time Source Procedure Growth Status 08/30/17 17:18 Urine Random Urine Urine Culture Pending Worksheet Result Diagram: 08/30/17 1640 08/30/17 1640 Caprini VTE Risk Assessment Caprini VTE Risk Assessment: No/Low Risk (score <= 1) Caprini Risk Assessment Model Point Value = 1 Point Value = 2 Point Value = 3 Point Value = 5 Age 41-60 Minor surgery BMI > 25 kg/m2 Swollen legs Varicose veins or History of unexplained or recurrent spontaneous Oral contraceptives or hormone replacement Sepsis (< 1 month) Serious lung disease, including pneumonia (< 1 month) Abnormal pulmonary function Acute myocardial infarction Congestive heart failure (< 1 month) History of inflammatory bowel disease Medical patient at bed rest Age 61-74 Arthroscopic surgery Major open surgery (> 45 min) Laparoscopic surgery (> 45 min) Malignancy Confined to bed (> 72 hours) Immobilizing plaster cast Central venous access Age >= 75 History of VTE Family history of VTE Factor V Leiden Prothrombin [id number] Lupus anticoagulant Anticardiolipin antibodies Elevated serum homocysteine Heparin-induced thrombocytopenia Other congenital or acquired thrombophilia Stroke (< 1 month) Elective arthroplasty Hip, pelvis, or leg fracture Acute spinal cord injury (< 1 month) Prophylaxis Regimen Total Risk Factor Score Risk Level Prophylaxis Regimen 0-1 Low Early ambulation 2 Moderate Order ONE of the following: *Sequential Compression Device (SCD) *Heparin 5000 units SQ BID 3-4 Higher Order ONE of the following medications: *Heparin 5000 units SQ TID *Enoxaparin/Lovenox 40 mg SQ daily (WT < 150 kg, CrCl > 30 mL/min) *Enoxaparin/Lovenox 30 mg SQ daily (WT < 150 kg, CrCl > 10-29 mL/min) *Enoxaparin/Lovenox 30 mg SQ BID (WT < 150 kg, CrCl > 30 mL/min) AND/OR *Sequential Compression Device (SCD) 5 or more Highest Order ONE of the following medications: *Heparin 5000 units SQ TID (Preferred with Epidurals) *Enoxaparin/Lovenox 40 mg SQ daily (WT < 150 kg, CrCl > 30 mL/min) *Enoxaparin/Lovenox 30 mg SQ daily (WT < 150 kg, CrCl > 10-29 mL/min) *Enoxaparin/Lovenox 30 mg SQ BID (WT < 150 kg, CrCl > 30 mL/min) AND *Sequential Compression Device (SCD) Assessment and Plan Assessment and Plan Assessment/plan: 1. Sickle cell crisis Patient reports pain consistent with her typical sickle cell pain crisis Dilaudid for pain IV fluid hydration 2. Severe anemia H&H 7.5/20.7 Patient with history of transfusion hemosiderosis Hematology consulted, appreciate recommendations regarding possible transfusion 3. UTI UA consistent with urinary tract infection Rocephin Urine culture pending FEN Regular diet Electrolytes: monitor and replete eNssa Verde MD Aug 31, 2017 01:57
[2017-08-31 08:10] LABS: AUTOMATED NEUTROPHIL # 12.4 TH/MM3 (1.8-7.7); BASOPHIL # 0.1 TH/MM3 (0-0.2); BASOPHIL % 0.4 % (0.0-2.0); EOSINOPHIL # 0.4 TH/MM3 (0-0.4); EOSINOPHIL % 1.8 % (0.0-4.0); LYMPH % 25.3 % (9.0-44.0); LYMPHOCYTE # 5.4 TH/MM3 (1.0-4.8); MEAN CELL VOLUME 94.6 FL (80.0-100.0); MEAN CORPUSCULAR HEMOGLOBIN 34.2 PG (27.0-34.0); MEAN PLATELET VOLUME 8.1 FL (7.0-11.0); MONO % 14.2 % (0.0-8.0); NEUT % 58.3 % (16.0-70.0); PLATELET COUNT 248 TH/MM3 (150-450); RED BLOOD COUNT 2.05 MIL/MM3 (4.00-5.30); RED CELL DISTRIBUTION WIDTH 23.2 % (11.6-17.2); WHITE BLOOD COUNT 21.3 TH/MM3 (4.0-11.0)
[2017-08-31 08:19] LABS: MEAN CORPUSCULAR HGB CONC 36.2 % (32.0-36.0)
[2017-08-31 08:30] LABS: HEMATOCRIT 19.4 % (35.0-46.0)
[2017-08-31 08:52] LABS: BICARBONATE 25.4 MEQ/L (21.0-32.0); CALCIUM 8.2 MG/DL (8.5-10.1); CREATININE 0.68 MG/DL (0.50-1.00)
[2017-08-31 09:43] LABS: BANDS 1 % (0-6); CORRECTED NUCLEATED RBC 4 /100 WBC (0-0); LYMPHOCYTES 30 % (9-44); MONOCYTES 17 % (0-8); NEUTROPHIL # MANUAL DIFF 10.9 TH/MM3 (1.8-7.7); NUCLEATED RED BLOOD CELL 4 (0-0); POLYS (SEG NEUTROPHILS) 50 % (16-70)
[2017-08-31 09:44] LABS: SICKLE CELLS 2+ (NORMAL); TARGET CELLS 2+ (NORMAL)
[2017-08-31 09:45] LABS: HOWELL-JOLLY BODIES PRESENT (NONE SEEN)
[2017-08-31] MEDS: SODIUM CHLORIDE 0.9% FLUSH 10 ML FLUSH IV FLUSH SCH ×2 (09:55→21:54)
[2017-08-31] MEDS: FOLIC ACID 1 MG TAB PO SCH (09:55)
[2017-08-31] MEDS: DOCUSATE SODIUM 50 MG/SENNA 8.6 MG TAB PO SCH ×2 (09:55→21:59)
[2017-08-31] MEDS: SODIUM CHLOR 0.9% 1000 ML INJ 1,000 ML IV SCH (10:11)
[2017-08-31] MEDS: HYDROXYUREA 500 MG CAP PO SCH (11:14)
[2017-08-31] MEDS ORDERED: SODIUM CHLOR 0.9% 250 ML INJ 250 ML IV ONE (12:30)
--- NOTE | 2017-08-31 13:27 | EKG ---
Date Performed: 08/30/2017 Time Performed: 17:41:34 PTAGE: 22 years EKG: Sinus rhythm WITH SINUS ARRHYTHMIA NORMAL ECG NO PREVIOUS TRACING DOCTOR: Michael Chopra Interpretating Date/Time 08/31/2017 13:25:16
[2017-08-31] MEDS ORDERED: SODIUM CHLOR 0.9% IV ONE (17:00)
[2017-08-31] MEDS ORDERED: DEFEROXAMINE IV ONE (17:00)
[2017-08-31] MEDS: ONDANSETRON HCL 4 MG/2 ML VIAL IVP PRN (17:41)
[2017-08-31] MEDS ORDERED: diphenhydrAMINE HCL 25 MG CAP PO ONE (18:15)
[2017-09-01] VITALS (8 sets, daily range): BP systolic 106–116; BP diastolic 58–72; PULSE 64–91; RESP 16–18; TEMP 97.9–99.1; O2SAT 94–96
[2017-09-01] MEDS: SODIUM CHLOR 0.9% 1000 ML INJ 1,000 ML IV SCH ×3 (03:10→22:25)
[2017-09-01] MEDS: cefTRIAXone INJ 1,000 MG in SODIUM CHLORIDE 0.9% INJ 100 ML IV SCH ×2 (03:10→19:44)
[2017-09-01 08:57] LABS: AUTOMATED NEUTROPHIL # 9.5 TH/MM3 (1.8-7.7); BASOPHIL # 0.1 TH/MM3 (0-0.2); BASOPHIL % 0.4 % (0.0-2.0); EOSINOPHIL # 0.3 TH/MM3 (0-0.4); EOSINOPHIL % 1.8 % (0.0-4.0); HEMOGLOBIN 8.3 GM/DL (11.6-15.3); LYMPH % 21.5 % (9.0-44.0); LYMPHOCYTE # 3.1 TH/MM3 (1.0-4.8); MEAN CELL VOLUME 88.9 FL (80.0-100.0); MEAN CORPUSCULAR HEMOGLOBIN 31.9 PG (27.0-34.0); MEAN CORPUSCULAR HGB CONC 35.8 % (32.0-36.0); MEAN PLATELET VOLUME 8.2 FL (7.0-11.0); MONO % 9.7 % (0.0-8.0); MONOCYTE # 1.4 TH/MM3 (0-0.9); NEUT % 66.6 % (16.0-70.0); PLATELET COUNT 301 TH/MM3 (150-450); RED BLOOD COUNT 2.59 MIL/MM3 (4.00-5.30); RED CELL DISTRIBUTION WIDTH 22.7 % (11.6-17.2); WHITE BLOOD COUNT 14.3 TH/MM3 (4.0-11.0)
[2017-09-01] MEDS: SODIUM CHLORIDE 0.9% FLUSH 10 ML FLUSH IV FLUSH SCH ×2 (09:00→19:43)
--- NOTE | 2017-09-01 09:09 | PD.ONC.PN ---
Subjective Subjective Remarks Afebrile overnight. Patient complaining of sickle cell type pain in her right great toe. States she overall feels much improved after her blood transfusion last night. Denies chest pain or shortness of breath. Objective Data Date Time Temp Pulse Resp B/P (MAP) Pulse Ox O2 Delivery O2 Flow Rate FiO2 09/01/17 08:00 99.1 78 16 111/63 (79) 94 09/01/17 04:00 84 09/01/17 03:30 96 Nasal Cannula 1.00 09/01/17 03:12 98.5 91 16 109/72 (84) 96 09/01/17 00:00 64 08/31/17 23:30 98.3 85 16 96/95 96 08/31/17 21:52 100 Nasal Cannula 2.00 08/31/17 21:52 98.7 73 18 120/62 (81) 100 08/31/17 20:00 92 08/31/17 19:30 98.7 82 16 103/63 100 08/31/17 16:22 104 113/63 (80) 08/31/17 16:20 98.6 83 16 109/65 (80) 100 08/31/17 13:30 Nasal Cannula 2.00 08/31/17 13:30 99.1 95 16 108/65 (79) 84 09/01/17 09/01/17 09/01/17 07:00 15:00 23:00 Intake Total 1100 ml Balance 1100 ml Result Diagram: 09/01/17 0750 08/31/17 0731 Laboratory Results Laboratory Tests Test 09/01/17 07:50 White Blood Count 14.3 TH/MM3 Red Blood Count 2.59 MIL/MM3 Hemoglobin 8.3 GM/DL Hematocrit 23.0 % Mean Corpuscular Volume 88.9 FL Mean Corpuscular Hemoglobin 31.9 PG Mean Corpuscular Hemoglobin Concent 35.8 % Red Cell Distribution Width 22.7 % Platelet Count 301 TH/MM3 Mean Platelet Volume 8.2 FL Neutrophils (%) (Auto) 66.6 % Lymphocytes (%) (Auto) 21.5 % Monocytes (%) (Auto) 9.7 % Eosinophils (%) (Auto) 1.8 % Basophils (%) (Auto) 0.4 % Neutrophils # (Auto) 9.5 TH/MM3 Lymphocytes # (Auto) 3.1 TH/MM3 Monocytes # (Auto) 1.4 TH/MM3 Eosinophils # (Auto) 0.3 TH/MM3 Basophils # (Auto) 0.1 TH/MM3 CBC Comment AUTO DIFF Culture Results Microbiology Date/Time Source Procedure Growth Status 08/30/17 17:18 Urine Random Urine Urine Culture - Final 50-100,000 CFU/ML MIXED GRAM POSITIVE... Complete Administered Medications Medications (Trade) Dose Ordered Sig/Jessy Route PRN Reason Start Time Stop Time Status Last Admin Dose Admin Sodium Chloride 1,000 ml @ 70 mls/hr [id number] IV 08/30/17 22:09 09/01/17 03:10 Sodium Chloride (NS Flush) 2 ml BID IV FLUSH 08/31/17 09:00 08/31/17 09:55 Ondansetron HCl (Zofran Inj) 4 mg Q6H PRN IVP NAUSEA OR VOMITING 08/30/17 22:15 08/31/17 17:41 Senna/Docusate Sodium (Maria Isabel-Colace) 1 tab BID PO 08/31/17 09:00 08/31/17 21:59 Folic Acid (Folate) 1 mg DAILY PO 08/31/17 09:00 08/31/17 09:55 Hydroxyurea (Hydrea) 500 mg DAILY PO 08/31/17 09:00 08/31/17 11:14 Hydromorphone HCl (Dilaudid Pf Inj) 1 mg Q4H PRN IV PUSH pain 6-10 08/31/17 00:30 08/31/17 21:59 Ceftriaxone Sodium 1000 mg/ Sodium Chloride 100 ml @ 200 mls/hr Q24H IV 08/31/17 19:00 09/01/17 03:10 Objective Remarks GENERAL: Young woman, lying in bed, resting. SKIN: Warm and dry. HEAD: Normocephalic. EYES: No injection or drainage. NECK: Supple, trachea midline. CARDIOVASCULAR: Regular rate and rhythm RESPIRATORY: Breath sounds equal bilaterally. No accessory muscle use. GASTROINTESTINAL: Abdomen soft, non-tender, nondistended. EXTREMITIES: No cyanosis NEUROLOGICAL: awake and alert. normal speech. moving extremities. Assessment/Plan Problem List: (1) Sickle cell pain crisis ICD Codes: D57.00 - Hb-SS disease with crisis, unspecified Status: Acute Plan: 09/01: continue supportive care with IVF, pain management. check labs today --s/p 1 unit pRBC on 08/31 Assessment 22y/o female with sickle cell disease, admitted for vaso-occlusive crisis. Attending Statement The exam, history, and the medical decision-making described in the above note were completed with the assistance of the mid-level provider. I reviewed and agree with the findings presented. I attest that I had a [id number] encounter with the patient on the same day, and personally performed and documented my assessment and findings in the medical record. Still has back and leg pain but getting better. Prbc 1 unit. Tolerated well. continue hydration, narcotics, hydrea, and folic acid. Shelby Romo Sep 01, 2017 09:09 Evita Mcgregor MD Sep 01, 2017 20:45
[2017-09-01 09:24] LABS: ALBUMIN 3.5 GM/DL (3.4-5.0); ALKALINE PHOSPHATASE 81 U/L (45-117); ALT (GPT) 42 U/L (9-42); AST (GOT) 71 U/L (16-38); BICARBONATE 26.4 MEQ/L (21.0-32.0); BLOOD UREA NITROGEN 4 MG/DL (7-18); CALCIUM 8.3 MG/DL (8.5-10.1); CHLORIDE 108 MEQ/L (98-107); CREATININE 0.73 MG/DL (0.50-1.00); GLOMERULAR FILTRATION RATE 123 ML/MIN (>89); GLUCOSE,RANDOM 82 MG/DL (74-106); SODIUM (NA) 140 MEQ/L (136-145); TOTAL BILIRUBIN ADULT 1.9 MG/DL (0.2-1.0); TOTAL PROTEIN 6.7 GM/DL (6.4-8.2)
--- NOTE | 2017-09-01 09:36 | MB ---
cc: Sonido Mcgregor MD DATE: 08/31/2017 REASON FOR CONSULTATION: Consult requested by hospitalist for evaluation of sickle cell painful crisis. HISTORY OF PRESENT ILLNESS: Sobeida is a 22-year-old female. She has a history of sickle cell anemia with multiple painful crisis and a stroke when she was young. She had been maintained on prophylactic blood transfusion due to the history of stroke. Due to multiple blood transfusions, she had developed hemosiderosis. The prophylactic blood transfusion now has been stopped due to very high ferritin level. The patient is now on Jadenu, which she is tolerating it well and her ferritin level is coming down. The patient came to the emergency room complaining of severe back pain. She was found to be in sickle cell painful crisis. She is now admitted to the hospital. Her admission CBC showed that the hemoglobin is 7.5. She is feeling sick. She has been getting narcotics to control her pain. She denies any fever. REVIEW OF SYSTEMS: The rest of the review of systems is negative. PAST MEDICAL HISTORY: Sickle cell anemia, transfusion hemosiderosis, asthma, stroke. PAST SURGICAL HISTORY: Brain surgery, liver biopsy, Infusaport placement, umbilical hernia repair. ALLERGIES: AMOXICILLIN. MEDICATIONS PRIOR TO COMING TO THE HOSPITAL: Hydrea, folic acid, aspirin, Jadenu, oxycodone and Singulair. FAMILY HISTORY: Her parents are both alive and well. She has 1 sister. No brothers and no children. SOCIAL HISTORY: The patient is single. She is a student at [employer]. She does not smoke cigarettes, does not drink alcohol. PHYSICAL EXAMINATION: GENERAL: This is a well-developed -Maltese female in mild to moderate distress due to the severe back pain. VITAL SIGNS: Temperature [98.6], heart rate is [98], blood pressure [113/70, O2 saturation 94%]. Pain scale is zero. HEAD, EYES, EARS, NOSE, AND THROAT: Pupils equal, round, reactive to light and accommodation, extraocular movements intact. Sclera is deeply icteric. No oral lesions noted. No thrush noted. NECK: Supple. No JVD. No masses noted. LUNGS: Clear. No wheezing, rhonchi, or rales. HEART: Regular rate and rhythm. No murmur heard. ABDOMEN: Soft and nontender. No hepatosplenomegaly. No abnormal bowel sounds. No guarding or rigidity noted. EXTREMITIES: No pedal edema. No cyanosis, no clubbing. NEUROLOGIC: Awake, alert, oriented x 3. Sensory and motor seem to be intact. SKIN: No bruises or petechiae noted. LYMPH NODES: No cervical, supraclavicular, or axillary lymphadenopathy noted. BACK: There is no spinal tenderness noted. ASSESSMENT: Sickle cell anemia with painful crisis. PLAN: I have discussed with the patient regarding further treatment for her sickle cell painful crisis. She is anemic. Her hemoglobin was 7.5 yesterday and today is 7.0. I will give her 1 unit of blood transfusion followed by 2 grams of Desferal. I recommend to continue her regular medications. I will follow her along with you. Thank you for asking my opinion. MD LYNNE Sommers/CHIDI , 11:16 PM , 11:41 PM MTDD
[2017-09-01] MEDS: FOLIC ACID 1 MG TAB PO SCH (10:07)
[2017-09-01] MEDS: DOCUSATE SODIUM 50 MG/SENNA 8.6 MG TAB PO SCH ×2 (10:07→19:44)
[2017-09-01] MEDS: HYDROXYUREA 500 MG CAP PO SCH (10:08)
[2017-09-01 10:09] LABS: BANDS 2 % (0-6); CORRECTED NUCLEATED RBC 5 /100 WBC (0-0); LYMPHOCYTES 12 % (9-44); MONOCYTES 5 % (0-8); NEUTROPHIL # MANUAL DIFF 11.7 TH/MM3 (1.8-7.7); NUCLEATED RED BLOOD CELL 5 (0-0); POLYCHROMASIA 2.6 % (0.0-1.9); POLYS (SEG NEUTROPHILS) 80 % (16-70); SICKLE CELLS 2+ (NORMAL)
[2017-09-01] MEDS: HYDROmorphone HCL PF 2 MG/ML VIAL IV PUSH PRN ×2 (12:27→19:40)
--- NOTE | 2017-09-01 17:46 | HHI.PR ---
Subjective Remarks 22-year-old female who presented with sickle cell crisis. She received a single blood transfusion and states that that helped her more than anything else. She has slowly resolving chest and back pain related to this crisis. Objective Vitals Vital Signs Date Time Temp Pulse Resp B/P (MAP) Pulse Ox O2 Delivery O2 Flow Rate FiO2 09/01/17 16:00 98.6 88 16 110/59 (76) 95 09/01/17 12:00 97.9 90 18 106/58 (74) 96 09/01/17 10:00 Nasal Cannula 2.00 09/01/17 08:00 99.1 78 16 111/63 (79) 94 09/01/17 04:00 84 09/01/17 03:30 96 Nasal Cannula 1.00 09/01/17 03:12 98.5 91 16 109/72 (84) 96 09/01/17 00:00 64 08/31/17 23:30 98.3 85 16 96/95 96 08/31/17 21:52 100 Nasal Cannula 2.00 08/31/17 21:52 98.7 73 18 120/62 (81) 100 08/31/17 20:00 92 08/31/17 19:30 98.7 82 16 103/63 100 I/O 08/31/17 08/31/17 08/31/17 09/01/17 09/01/17 09/01/17 07:00 15:00 23:00 07:00 15:00 23:00 Intake Total 690 ml 1100 ml 550 ml Balance 690 ml 1100 ml 550 ml Intake Oral 690 ml 240 ml IV Total 560 ml 550 ml Packed Cells 300 ml # Voids 4 2 # Bowel Movements 0 Result Diagram: 09/01/17 0750 09/01/17 0750 Objective Remarks GENERAL: Well-nourished, well-developed patient. SKIN: Warm and dry. HEAD: Normocephalic. EYES: No scleral icterus. No injection or drainage. NECK: Supple, trachea midline. No JVD or lymphadenopathy. CARDIOVASCULAR: Regular rate and rhythm without murmurs, gallops, or rubs. RESPIRATORY: Breath sounds equal bilaterally. No accessory muscle use. GASTROINTESTINAL: Abdomen soft, non-tender, nondistended. EXTREMITIES: No cyanosis, or edema. NEUROLOGICAL: Awake, alert, and oriented x 3. Non-focal. A/P Problem List: (1) Sickle cell crisis ICD Code: D57.00 - Hb-SS disease with crisis, unspecified Status: Acute (2) Anemia ICD Code: D64.9 - Anemia, unspecified Assessment and Plan Sickle cell crisis Pain is slowly improving, mostly in her chest and back Continue Dilaudid for pain Continue IV fluid hydration Appreciate hematology consult Severe anemia Hemoglobin at 7, patient with history of transfusion hemosiderosis Transfused with 1 unit followed by Desferal Appreciate hematology assistance UTI Continue Rocephin Urine culture pending, follow for results DVT prophylaxis SCD Griffin Soliz MD Sep 01, 2017 17:46
[2017-09-02] VITALS (15 sets, daily range): BP systolic 101–117; BP diastolic 57–74; PULSE 62–102; RESP 16–20; TEMP 97.8–99; O2SAT 94–99
[2017-09-02] MEDS: HYDROmorphone HCL PF 2 MG/ML VIAL IV PUSH PRN ×4 (00:18→21:34)
[2017-09-02 04:29] LABS: HEMOGLOBIN 7.4 GM/DL (11.6-15.3); MEAN CELL VOLUME 87.3 FL (80.0-100.0); MEAN CORPUSCULAR HEMOGLOBIN 31.6 PG (27.0-34.0); MEAN PLATELET VOLUME 7.9 FL (7.0-11.0); PLATELET COUNT 269 TH/MM3 (150-450); RED BLOOD COUNT 2.33 MIL/MM3 (4.00-5.30); RED CELL DISTRIBUTION WIDTH 22.4 % (11.6-17.2); WHITE BLOOD COUNT 13.7 TH/MM3 (4.0-11.0)
[2017-09-02 04:34] LABS: MEAN CORPUSCULAR HGB CONC 36.2 % (32.0-36.0)
[2017-09-02 04:36] LABS: HEMATOCRIT 20.4 % (35.0-46.0)
--- NOTE | 2017-09-02 08:43 | PD.ONC.PN ---
Subjective Subjective Remarks Afebrile overnight. Patient resting in bed in nad. States she has a little bit of back pain. Her toe pain from yesterday improved. No chest pain or shortness of breath. Feels her crisis symptoms have improved enough and she feels ready to go home. Objective Data Date Time Temp Pulse Resp B/P (MAP) Pulse Ox O2 Delivery O2 Flow Rate FiO2 09/02/17 05:01 99.0 84 18 117/59 (78) 95 09/02/17 00:48 20 09/02/17 00:11 98.7 72 20 109/57 (74) 97 09/02/17 00:06 70 09/01/17 20:07 76 09/01/17 19:47 98.7 83 18 116/69 (85) 95 09/01/17 19:47 Nasal Cannula 09/01/17 19:46 83 Room Air 09/01/17 16:00 98.6 88 16 110/59 (76) 95 09/01/17 12:00 97.9 90 18 106/58 (74) 96 09/01/17 10:00 Nasal Cannula 2.00 09/02/17 09/02/17 09/02/17 07:00 15:00 23:00 Intake Total 480 ml Balance 480 ml Result Diagram: 09/02/17 0346 09/01/17 0750 Laboratory Results Laboratory Tests Test 09/02/17 03:46 White Blood Count 13.7 TH/MM3 Red Blood Count 2.33 MIL/MM3 Hemoglobin 7.4 GM/DL Hematocrit 20.4 % Mean Corpuscular Volume 87.3 FL Mean Corpuscular Hemoglobin 31.6 PG Mean Corpuscular Hemoglobin Concent 36.2 % Red Cell Distribution Width 22.4 % Platelet Count 269 TH/MM3 Mean Platelet Volume 7.9 FL Culture Results Microbiology Date/Time Source Procedure Growth Status 08/30/17 17:18 Urine Random Urine Urine Culture - Final 50-100,000 CFU/ML MIXED GRAM POSITIVE... Complete Administered Medications Medications (Trade) Dose Ordered Sig/Jessy Route PRN Reason Start Time Stop Time Status Last Admin Dose Admin Sodium Chloride 1,000 ml @ 70 mls/hr [id number] IV 08/30/17 22:09 09/01/17 22:25 Sodium Chloride (NS Flush) 2 ml BID IV FLUSH 08/31/17 09:00 09/01/17 19:43 Ondansetron HCl (Zofran Inj) 4 mg Q6H PRN IVP NAUSEA OR VOMITING 08/30/17 22:15 08/31/17 17:41 Senna/Docusate Sodium (Maria Isabel-Colace) 1 tab BID PO 08/31/17 09:00 09/01/17 19:44 Folic Acid (Folate) 1 mg DAILY PO 08/31/17 09:00 09/01/17 10:07 Hydroxyurea (Hydrea) 500 mg DAILY PO 08/31/17 09:00 09/01/17 10:08 Hydromorphone HCl (Dilaudid Pf Inj) 1 mg Q4H PRN IV PUSH pain 6-10 08/31/17 00:30 09/02/17 00:18 Ceftriaxone Sodium 1000 mg/ Sodium Chloride 100 ml @ 200 mls/hr Q24H IV 08/31/17 19:00 09/01/17 19:44 Objective Remarks GENERAL: Young woman, supine in bed in nad. SKIN: Warm and dry. HEAD: Normocephalic. EYES: No injection or drainage. NECK: Supple, trachea midline. CARDIOVASCULAR: Regular rate and rhythm RESPIRATORY: Breath sounds equal bilaterally. No accessory muscle use. GASTROINTESTINAL: Abdomen soft, non-tender, nondistended. EXTREMITIES: No cyanosis NEUROLOGICAL: awake. no obvious focal deficit. Assessment/Plan Problem List: (1) Sickle cell pain crisis ICD Codes: D57.00 - Hb-SS disease with crisis, unspecified Status: Acute Assessment 22y/o female with sickle cell disease, admitted for vaso-occlusive crisis. Plan 1. hematology clear for discharge 2. follow up in clinic in 2-3 weeks or as needed. Attending Statement The exam, history, and the medical decision-making described in the above note were completed with the assistance of the mid-level provider. I reviewed and agree with the findings presented. I attest that I had a [id number] encounter with the patient on the same day, and personally performed and documented my assessment and findings in the medical record. Ms. Zepeda was seen and examined. Vital signs, medications and labs reviewed as well. Patient admitted to the hospital with an uncomplicated sickle cell vaso- occlusive crisis. Her crisis was not complicated by acute chest syndrome, acute stroke or avascular necrosis. Subjectively; she reports having had some pain earlier today, she received intravenous hydromorphone and as a consequence she has some nausea at this time. Her pain is overall improved however. The patient denies having difficulty breathing, chest pain, fevers chills or neurologic symptoms. Physical exam was performed independently, her air movement in bilateral lungs was noted to be adequate in the bases and in the remaining lung ren without added breath sounds. Cardiovascular: Regular rate and rhythm, S1-S2 no obvious murmurs rubs gallops next abdominal exam: Thin, soft nontender nondistended. Disposition: Clear to discharge when pain control is adequate on oral analgesics. Shelby Romo Sep 02, 2017 08:43 Corbin Raymundo MD Sep 02, 2017 12:42
[2017-09-02] MEDS: SODIUM CHLORIDE 0.9% FLUSH 10 ML FLUSH IV FLUSH SCH ×2 (08:46→20:46)
[2017-09-02] MEDS: FOLIC ACID 1 MG TAB PO SCH (08:47)
[2017-09-02] MEDS: DOCUSATE SODIUM 50 MG/SENNA 8.6 MG TAB PO SCH ×2 (08:47→20:46)
[2017-09-02] MEDS: HYDROXYUREA 500 MG CAP PO SCH (08:50)
[2017-09-02] MEDS: SODIUM CHLOR 0.9% 1000 ML INJ 1,000 ML IV SCH (12:37)
[2017-09-02] MEDS: ONDANSETRON HCL 4 MG/2 ML VIAL IVP PRN (12:42)
--- NOTE | 2017-09-02 18:10 | HHI.PR ---
Subjective Remarks I informed patient that she was cleared by hematology today, but she does not feel quite well enough to go home yet. She denies any acute episodes of dyspnea , denies severe pain, denies nausea vomiting. Objective Vitals Vital Signs Date Time Temp Pulse Resp B/P (MAP) Pulse Ox O2 Delivery O2 Flow Rate FiO2 09/02/17 12:15 86 09/02/17 12:00 98.4 82 16 112/60 (77) 98 09/02/17 08:40 99 Nasal Cannula 2.00 09/02/17 08:40 97.8 85 16 101/63 (76) 99 09/02/17 08:15 102 09/02/17 05:01 99.0 84 18 117/59 (78) 95 09/02/17 00:48 20 09/02/17 00:11 98.7 72 20 109/57 (74) 97 09/02/17 00:06 70 09/01/17 20:07 76 09/01/17 19:47 98.7 83 18 116/69 (85) 95 09/01/17 19:47 Nasal Cannula 09/01/17 19:46 83 Room Air I/O 09/01/17 09/01/17 09/01/17 09/02/17 09/02/17 09/02/17 07:00 15:00 23:00 07:00 15:00 23:00 Intake Total 1100 ml 550 ml 1270 ml 480 ml Balance 1100 ml 550 ml 1270 ml 480 ml Intake Oral 240 ml 720 ml 480 ml IV Total 560 ml 550 ml 550 ml Packed Cells 300 ml # Voids 2 3 2 # Bowel Movements 1 Result Diagram: 09/02/17 0346 09/01/17 0750 Objective Remarks GENERAL: Well-nourished, well-developed patient. SKIN: Warm and dry. HEAD: Normocephalic. EYES: No scleral icterus. No injection or drainage. NECK: Supple, trachea midline. No JVD or lymphadenopathy. CARDIOVASCULAR: Regular rate and rhythm without murmurs, gallops, or rubs. RESPIRATORY: Breath sounds equal bilaterally. No accessory muscle use. GASTROINTESTINAL: Abdomen soft, non-tender, nondistended. EXTREMITIES: No cyanosis, or edema. NEUROLOGICAL: Awake, alert, and oriented x 3. Non-focal. A/P Problem List: (1) Sickle cell crisis ICD Code: D57.00 - Hb-SS disease with crisis, unspecified Status: Acute (2) Anemia ICD Code: D64.9 - Anemia, unspecified Assessment and Plan Sickle cell crisis Pain is mostly in her chest and back, approximately 3/10 by patient's report Continue Dilaudid for pain Continue IV fluid hydration Hematology signed off Severe anemia Hemoglobin at 7, patient with history of transfusion hemosiderosis Transfused with 1 unit followed by Desferal Appreciate hematology assistance UTI Continue Rocephin Urine culture grew mixed primitivo DVT prophylaxis SCD Griffin Soliz MD Sep 02, 2017 18:10
[2017-09-02] MEDS: cefTRIAXone INJ 1,000 MG in SODIUM CHLORIDE 0.9% INJ 100 ML IV SCH (18:30)
[2017-09-03] VITALS (22 sets, daily range): BP systolic 96–116; BP diastolic 48–77; PULSE 58–100; RESP 15–18; TEMP 98–98.8; O2SAT 93–100
[2017-09-03] MEDS: HYDROmorphone HCL PF 2 MG/ML VIAL IV PUSH PRN ×2 (01:25→08:54)
[2017-09-03 06:21] LABS: HEMOGLOBIN 7.4 GM/DL (11.6-15.3); MEAN CELL VOLUME 87.5 FL (80.0-100.0); MEAN CORPUSCULAR HEMOGLOBIN 32.2 PG (27.0-34.0); MEAN PLATELET VOLUME 8.1 FL (7.0-11.0); PLATELET COUNT 269 TH/MM3 (150-450); RED CELL DISTRIBUTION WIDTH 22.4 % (11.6-17.2)
[2017-09-03 06:26] LABS: MEAN CORPUSCULAR HGB CONC 36.8 % (32.0-36.0)
[2017-09-03 06:28] LABS: HEMATOCRIT 20.1 % (35.0-46.0)
[2017-09-03] MEDS: SODIUM CHLORIDE 0.9% FLUSH 10 ML FLUSH IV FLUSH SCH ×2 (08:54→19:33)
[2017-09-03] MEDS: FOLIC ACID 1 MG TAB PO SCH (08:54)
[2017-09-03] MEDS: DOCUSATE SODIUM 50 MG/SENNA 8.6 MG TAB PO SCH ×2 (08:54→19:32)
[2017-09-03] MEDS: HYDROXYUREA 500 MG CAP PO SCH (08:56)
--- NOTE | 2017-09-03 15:58 | HHI.DS ---
Discharge Summary Admission Date Sep 01, 2017 at 4:50 pm Discharge Date: Sep 04, 2017 Admitting Diagnosis sickle cell crisis, anemia (1) Sickle cell crisis ICD Code: D57.00 - Hb-SS disease with crisis, unspecified Status: Acute (2) Anemia ICD Code: D64.9 - Anemia, unspecified Procedures none Brief History - From Admission 22-year-old female with a past medical history significant for sickle cell disease and asthma presents to the emergency department for evaluation of pain crisis. The patient reports she has pain in her chest and back which is typical for her sickle cell crises. She states that she is not having any shortness of breath. Her pain is nonradiating. She denies any urinary symptoms such as frequency or dysuria. She has a history significant for transfusion hemosiderosis. She is severely anemic with an H&H of 7.5/20.7. She denies any abdominal pain. No nausea/vomiting/diarrhea. No lateralizing signs/symptoms. Denies fever/chills. CBC/BMP: 09/03/17 0524 09/01/17 0750 Significant Findings Laboratory Tests Test 09/01/17 07:50 09/02/17 03:46 09/03/17 05:24 White Blood Count 14.3 TH/MM3 (4.0-11.0) 13.7 TH/MM3 (4.0-11.0) 14.0 TH/MM3 (4.0-11.0) Red Blood Count 2.59 MIL/MM3 (4.00-5.30) 2.33 MIL/MM3 (4.00-5.30) 2.30 MIL/MM3 (4.00-5.30) Hemoglobin 8.3 GM/DL (11.6-15.3) 7.4 GM/DL (11.6-15.3) 7.4 GM/DL (11.6-15.3) Hematocrit 23.0 % (35.0-46.0) 20.4 % (35.0-46.0) 20.1 % (35.0-46.0) Red Cell Distribution Width 22.7 % (11.6-17.2) 22.4 % (11.6-17.2) 22.4 % (11.6-17.2) Monocytes (%) (Auto) 9.7 % (0.0-8.0) Neutrophils # (Auto) 9.5 TH/MM3 (1.8-7.7) Monocytes # (Auto) 1.4 TH/MM3 (0-0.9) Neutrophils % (Manual) 80 % (16-70) Neutrophils # (Manual) 11.7 TH/MM3 (1.8-7.7) Nucleated Red Blood Cells 5 /100 WBC (0-0) Polychromasia 2.6 % (0.0-1.9) Basophilic Stippling FAINT (NORMAL) Sickle Cells 2+ (NORMAL) Blood Urea Nitrogen 4 MG/DL (7-18) Calcium Level 8.3 MG/DL (8.5-10.1) Aspartate Amino Transf (AST/SGOT) 71 U/L (16-38) Total Bilirubin 1.9 MG/DL (0.2-1.0) Chloride Level 108 MEQ/L (98-107) Mean Corpuscular Hemoglobin Concent 36.2 % (32.0-36.0) 36.8 % (32.0-36.0) PE at Discharge GENERAL: Well-nourished, well-developed patient. SKIN: Warm and dry. HEAD: Normocephalic. EYES: No scleral icterus. No injection or drainage. NECK: Supple, trachea midline. No JVD or lymphadenopathy. CARDIOVASCULAR: Regular rate and rhythm without murmurs, gallops, or rubs. RESPIRATORY: Breath sounds equal bilaterally. No accessory muscle use. GASTROINTESTINAL: Abdomen soft, non-tender, nondistended. EXTREMITIES: No cyanosis, or edema. NEUROLOGICAL: Awake, alert, and oriented x 3. Non-focal. Hospital Course 22-year-old female with a history of sickle cell disease who was admitted 2 days ago with sickle cell crisis. This was her third visit to the hospital with sickle cell crisis in the last month. This time urinalysis revealed that she had a urinary tract infection which most likely was the exacerbating factor for this crisis. She received 1 unit of packed red blood cells for hemoglobin of 7.0. With a history of hemosiderosis she was unable to receive more than that at this time. She has been treated with 3 days of Rocephin and is now asymptomatic regarding her UTI. She has a follow-up scheduled with oncology will be discharged in the morning. Pt Condition on Discharge: Good Discharge Disposition: Discharge Home Discharge Time: <= 30 minutes Discharge Instructions DIET: Follow Instructions for: As Tolerated, No Restrictions Activities you can perform: Regular-No Restrictions Griffin White MD Sep 03, 2017 3:58 pm
[2017-09-03] MEDS: SODIUM CHLOR 0.9% 1000 ML INJ 1,000 ML IV SCH (16:29)
[2017-09-03] MEDS: ACETAMINOPHEN/HYDROcodone 325 MG/5 MG TAB PO PRN ×2 (16:29→23:36)
[2017-09-03] MEDS: cefTRIAXone INJ 1,000 MG in SODIUM CHLORIDE 0.9% INJ 100 ML IV SCH (19:32)
[2017-09-04] VITALS (9 sets, daily range): BP systolic 105–112; BP diastolic 64–71; PULSE 56–126; RESP 15–16; TEMP 98–98.6; O2SAT 94–99
[2017-09-04] MEDS: ONDANSETRON HCL 4 MG/2 ML VIAL IVP PRN (01:34)
[2017-09-04] MEDS: SODIUM CHLOR 0.9% 1000 ML INJ 1,000 ML IV SCH (01:36)
[2017-09-04] MEDS: FOLIC ACID 1 MG TAB PO SCH (08:39)
[2017-09-04] MEDS: DOCUSATE SODIUM 50 MG/SENNA 8.6 MG TAB PO SCH (08:39)
[2017-09-04] MEDS: HYDROXYUREA 500 MG CAP PO SCH (08:39)
[2017-09-04] MEDS: SODIUM CHLORIDE 0.9% FLUSH 10 ML FLUSH IV FLUSH SCH (08:43)
--- NOTE | 2017-09-04 12:19 | HHI.PR ---
Subjective Remarks Patient denies cp/sob The patient has good oxygen saturation and is currently on 1 L nasal cannula. A febrile Objective Vitals Vital Signs Date Time Temp Pulse Resp B/P (MAP) Pulse Ox O2 Delivery O2 Flow Rate FiO2 09/04/17 12:00 98.6 73 16 105/71 (82) 94 09/04/17 08:38 98.0 81 16 112/68 (83) 95 09/04/17 08:38 Nasal Cannula 1.00 09/04/17 05:00 62 09/04/17 04:32 98.6 80 15 107/64 (78) 99 09/04/17 04:00 56 09/04/17 03:00 64 09/04/17 02:00 126 09/04/17 01:00 72 09/04/17 00:00 71 09/04/17 00:00 72 09/03/17 23:33 98.6 77 17 116/74 (88) 95 09/03/17 23:00 76 09/03/17 22:00 72 09/03/17 21:00 62 09/03/17 20:02 92 Nasal Cannula 1.00 09/03/17 20:00 68 09/03/17 20:00 98.4 97 16 108/55 (72) 95 09/03/17 20:00 72 09/03/17 20:00 95 Nasal Cannula 2.00 09/03/17 19:00 88 09/03/17 16:50 98.8 72 16 100/62 (75) 97 09/03/17 16:45 65 09/03/17 13:00 98.0 68 16 110/60 (77) 97 09/03/17 12:25 82 I/O 09/03/17 09/03/17 09/03/17 09/04/17 09/04/17 09/04/17 07:00 15:00 23:00 07:00 15:00 23:00 Intake Total 240 ml 1060 ml 1670 ml Balance 240 ml 1060 ml 1670 ml Intake Oral 240 ml 960 ml 420 ml IV Total 100 ml 1250 ml # Voids 2 4 2 Result Diagram: 09/03/17 0524 09/01/17 0750 Imaging Last Impressions Chest X-Ray 08/30/17 1630 Signed Impressions: Service Date/Time: Wednesday, August 30, 2017 16:40 - CONCLUSION: Lungs are clear. Arden Velasco MD Objective Remarks AAOx3, nad Clear lungs BL S1S2 RRRm, no MRG abdomen soft, nt no edema or calf pain on BL lower extremities Procedures none Medications and IVs Last Impressions Chest X-Ray 08/30/17 1630 Signed Impressions: Service Date/Time: Wednesday, August 30, 2017 16:40 - CONCLUSION: Lungs are clear. Arden Velasco MD Urinary Catheter: No Vascular Central Line Catheter: No A/P Problem List: (1) Sickle cell crisis ICD Code: D57.00 - Hb-SS disease with crisis, unspecified Status: Acute (2) Anemia ICD Code: D64.9 - Anemia, unspecified Assessment and Plan Sickle cell crisis SP treatment with Iv fluids and pain control No cp or sob Hematology signed off Severe anemia Hemoglobin at 7, patient with history of transfusion hemosiderosis Transfused with 1 unit followed by Desferal Appreciate hematology assistance 09/04 Hemoglobin stable at 7.4 UTI sp Rocephin Urine culture grew mixed primitivo DVT prophylaxis SCD hose Discharge Planning Discharge home. Problem Qualifiers (1) Anemia: Qualified Codes: D64.9 - Anemia, unspecified Phil Seymour MD Sep 04, 2017 12:19
[2017-09-04] MEDS ORDERED: SODIUM CHLORIDE 0.9% FLUSH 10 ML FLUSH IV FLUSH PRN (15:15)
== END 2017-09-04 15:35 | disposition home or self-care (01) | DRG 812 ==
LOC: NEPC 15:25 → NEDA 20:05 → NEDH 08-31 00:19 → HCIN 08-31 08:16 → OBSVTOIN 09-01 16:50
PROVIDERS: ADMIT Hospitalist; ATTEND Hospitalist
DX: D57.00 Hb-SS disease with crisis, unspecified (principal); N30.00 Acute cystitis without hematuria; E83.19 Other disorders of iron metabolism; J45.909 Unspecified asthma, uncomplicated; Z86.73 Personal history of transient ischemic attack (TIA), and cerebral infarction without residual deficits; Z98.890 Other specified postprocedural states; Z88.0 Allergy status to penicillin; Z79.82 Long term (current) use of aspirin
CPT/HCPCS: 36430; 71045; 80048; 80053; 81001; 82550; 84484; 84703; 85007; 85027; 85044; 86850; 86900; 86901; 86920; 87086; 93005; 94618; 96361; 96375; 96376; G0378; J0696; J0895; J1170; J1200; J1642; J1885; J2270; J2405; J7030; J7050; P9016

== ENCOUNTER 2018-06-26 19:25 | Inpatient (IN) ==
--- NOTE | 2018-06-26 19:40 | ED ---
HPI General Chief Complaint: Sickle Cell Stated Complaint: Sickocell Crisis Time Seen by Provider: 06/26/18 19:30 Source: patient Mode of arrival: EMS Limitations: no limitations History of Present Illness HPI Narrative: 23-year-old female with sickle cell anemia presents for evaluation of low back pain and bilateral thigh pain which is similar to previous sickle cell crises. Patient currently does not have insurance so she does not have any pain medication at home. Patient complains of mild chest pain. She denies fever, shortness of breath. MD Complaint: Reports back pain Onset (ago): hour(s) (7) Duration: Reports constant Similar Symptoms Previously: Yes Location: Reports lumbar spine Severity: severe Quality: Reports aching Relieving factors: none Exacerbating factors: movement Associated symptoms: Denies weakness, fatigue, syncope, numbness, difficulty walking, loss of sensation in lower extremities, increased urinary urgency, increased urinary frequency, urinary incontinence, fecal incontinence, a change in bowel habits, fever, chills, abdominal pain, dysuria, hematuria and parasthesias Related Data Home Medications Medication Instructions Recorded Confirmed aspirin [Aspir-81] 81 mg PO DAILY 11/13/17 06/26/18 deferasirox [Jadenu] 28 mg/kg PO DAILY 11/13/17 06/26/18 folic acid 1 mg PO DAILY 11/13/17 06/26/18 hydroxyurea 500 mg PO DAILY 11/13/17 06/26/18 Allergies Allergy/AdvReac Type Severity Reaction Status Date / Time amoxicillin Allergy Intermediate hives Verified 06/26/18 19:36 Review of Systems ROS: all other systems reviewed are negative PMFSH History History Provided By: Patient Medical History Medical History Asthma (Acute) Encounter for insertion of venous access port (Acute) Sickle cell anemia (Acute) Social History Social History Substance History: No History of Abuse Smoking Status: Never smoker How Often Do You Have a Drink Containing Alcohol: Never Recent Travel in [facility] within the Last 8 Weeks: No Recent Out of Country Travel within the Last 8 Weeks: No Exam Narrative Exam Narrative: GENERAL: Awake, alert, tearful SKIN: Focused skin assessment warm/dry. HEAD: Atraumatic. Normocephalic. EYES: Pupils equal and round. No scleral icterus. No injection or drainage. ENT: No nasal bleeding or discharge. Mucous membranes pink and moist. NECK: Trachea midline. No JVD. CARDIOVASCULAR: Regular rate and rhythm. No murmur appreciated. RESPIRATORY: No accessory muscle use. Clear to auscultation. Breath sounds equal bilaterally. GASTROINTESTINAL: Abdomen soft, non-tender, nondistended. Hepatic and splenic margins not palpable. MUSCULOSKELETAL: No obvious deformities. No clubbing. No cyanosis. No edema. NEUROLOGICAL: Awake and alert. No obvious cranial nerve deficits. Motor grossly within normal limits. Normal speech. PSYCHIATRIC: Appropriate mood and affect; insight and judgment normal. Course Initial Documented Vital Signs Temperature 98.7 F 06/26/18 19:37 Pulse Rate 96 H 06/26/18 19:37 Respiratory Rate 22 06/26/18 19:37 Blood Pressure 137/86 06/26/18 19:37 Pulse Oximetry 95 06/26/18 19:37 Last Documented Vital Signs Temperature 98.7 F 06/26/18 19:37 Pulse Rate 96 H 06/26/18 19:37 Respiratory Rate 22 06/26/18 19:37 Blood Pressure 137/86 06/26/18 19:37 Pulse Oximetry 95 06/26/18 19:37 Medical Decision Making MDM Narrative Medical decision making narrative: 23-year-old female with sickle cell anemia presents for evaluation of low back pain and bilateral leg pain similar to her previous flares. Laboratory work shows hemoglobin of 7.1 which is decreased from her baseline of 8. Reticulocyte count is elevated at 16. Discussed with Dr. Mojica from hematology who recommends no transfusion at this time however transfusion if hemoglobin drops further, for now management with IV fluids and pain control. Patient given 2 doses of morphine without improvement. Patient did have some relief of pain after 1 dose of Dilaudid. Will admit patient to medicine for pain control and management of sickle cell crisis. Medical Screen Exam Complete: Yes Emergency Medical Condition: Yes Lab Data Lab results reviewed: Yes I reviewed the patient's lab results. Result diagrams: 06/26/18 20:09 06/26/18 20:09 Lab Results 06/26/18 06/26/18 Range/Units 20:09 20:09 WBC 19.6 H (4.0-11.0) th/mm3 RBC 2.00 L (4.00-5.30) mil/mm3 Hgb 7.1 L (11.6-15.3) gm/dL Hct 20.0 L* (35.0-46.0) % MCV 99.8 (80.0-100.0) fL MCH 35.4 H (27.0-34.0) pg MCHC 35.5 (32.0-36.0) % RDW 22.2 H (11.6-17.2) % Plt Count 367 (150-450) th/mm3 MPV 7.7 (7.0-11.0) fL Prelim Diff (Auto) Slide review pending Neut % (Auto) 73.4 H (16.0-70.0) % Lymph % (Auto) 16.1 (9.0-44.0) % [place] % (Auto) 9.2 H (0.0-8.0) % Eos % (Auto) 0.8 (0.0-4.0) % Baso % (Auto) 0.5 (0.0-2.0) % Neut # (Auto) 14.4 H (1.8-7.7) th/mm3 Lymph # (Auto) 3.1 (1.0-4.8) th/mm3 [place] # (Auto) 1.8 H (0.0-0.9) th/mm3 Eos # (Auto) 0.2 (0.0-0.4) th/mm3 Baso # (Auto) 0.1 (0.0-0.2) th/mm3 WBC Differential Manual diff final Seg Neuts % (Manual) 67 (16-70) % Band Neuts % (Manual) 3 (0-6) % Lymphocytes % (Manual) 12 (9-44) % Monocytes % (Manual) 13 H (0-8) % Eosinophils % (Manual) 1 (0-4) % Metamyelocytes % (Man) 2 H (0-1) % Myelocytes % (Man) 2 H (0-0) % Abs Neuts (Manual) 14.5 H (1.8-7.7) th/mm3 Nucleated RBCs/100 WBC 13 H (0-0) /100 WBC Differential Comment . Toxic Granulation 1+ H (None) Platelet Estimate Normal (Normal) Platelet Morphology Normal (Normal) Basophilic Stippling Faint H (None) Spherocytes Occ H (None) Sickle Cells 1+ H (None) Ovalocytes 1+ H (None) Retic Count 16.8 H (0.4-3.0) % Absolute Retic 337.0 H (20.0-150.0) mil/L Sodium 141 (136-145) meq/L Potassium 4.2 (3.5-5.1) meq/L Chloride 109 H (98-107) meq/L Carbon Dioxide 26.0 (21.0-32.0) meq/L Anion Gap 6 (5-15) meq/L BUN 6 L (7-18) mg/dL Creatinine 0.64 (0.50-1.00) mg/dL Estimated GFR Greater than 89 (>89) mL/min Random Glucose 115 H (74-106) mg/dL Calcium 8.4 L (8.5-10.1) mg/dL Total Bilirubin 2.4 H (0.2-1.0) mg/dL AST 64 H (15-37) U/L ALT 42 (10-53) U/L Alkaline Phosphatase 126 H (45-117) U/L Total Protein 7.7 (6.4-8.2) g/dL Albumin 4.1 (3.4-5.0) g/dL Imaging Data Radiologist's impression: Chest X-Ray 06/26/18 19:33 CONCLUSION: No acute cardiopulmonary disease demonstrated. Discharge Plan Discharge Disposition Patient Disposition: ED Admit(ED Internal Use Only) Discharge Condition Condition: Stable Discharge Order Discharge Orders: ED Use Only Admit Order (Routine); Ordered 06/26/18 Ordered By: Jordyn Gallegos Discharge Details Diagnosis: Acute sickle cell crisis Physicians Team ED Provider: Jordyn Gallegos Primary Care Provider: UNKNOWN, Attending Provider: Nessa Ricardo Status ED Status: Admitted Observation Patient
[2018-06-26] MEDS ORDERED: Sod Chloride 0.9% Inj 1,000 ML IV.SIG SCH (19:45)
[2018-06-26] MEDS ORDERED: Morphine Sulfate Inj 8 MG/ML Vial IV.PUSH ONE (20:22)
[2018-06-26] MEDS: Morphine Sulfate Inj 8 MG/ML Vial IV.PUSH ONE ×2 (20:27→20:31)
[2018-06-26 20:32] LABS: Baso # (Auto) 0.1 th/mm3 (0.0-0.2); Baso % (Auto) 0.5 % (0.0-2.0); Eos # (Auto) 0.2 th/mm3 (0.0-0.4); Eos % (Auto) 0.8 % (0.0-4.0); Hemoglobin 7.1 gm/dL (11.6-15.3); Lymph # (Auto) 3.1 th/mm3 (1.0-4.8); Lymph % (Auto) 16.1 % (9.0-44.0); Mean Corpuscular HGB Conc 35.5 % (32.0-36.0); Mean Corpuscular Hemoglobin 35.4 pg (27.0-34.0); Mean Corpuscular Volume 99.8 fL (80.0-100.0); Mean Platelet Volume 7.7 fL (7.0-11.0); Mono # (Auto) 1.8 th/mm3 (0.0-0.9); Mono % (Auto) 9.2 % (0.0-8.0); Neut # (Auto) 14.4 th/mm3 (1.8-7.7); Neut % (Auto) 73.4 % (16.0-70.0); Platelet Count 367 th/mm3 (150-450); Red Cell Distribution Width 22.2 % (11.6-17.2); Reticulocyte Percent 16.8 % (0.4-3.0); White Blood Count 19.6 th/mm3 (4.0-11.0)
--- NOTE | 2018-06-26 20:33 | XR ---
EXAM DATE: 06/26/2018 8:30 PM EST AGE/SEX: 23 years / Female INDICATIONS: Sickle cell pain. CLINICAL DATA: This is the patient's initial encounter. Patient reports that signs and symptoms have been present for 1 day and indicates a pain score of 10/10. MEDICAL/SURGICAL HISTORY: . Asthma. Sickle Cell disease. . Venous access port. COMPARISON: [facility] – [place], CHEST SINGLE AP, 11/11/2017. . FINDINGS: No infiltrate, effusion or pneumothorax demonstrated. Heart size within normal limits. There is a left internal jugular [id number] catheter with tip at the atriocaval junction. CONCLUSION: No acute cardiopulmonary disease demonstrated. Electronically signed by: Keon Vidal MD Board Certified Radiologist 06/26/2018 8:32 PM EST
[2018-06-26 21:05] LABS: Albumin 4.1 g/dL (3.4-5.0); Anion Gap 6 meq/L (5-15); Aspartate Aminotransferase 64 U/L (15-37); Blood Urea Nitrogen 6 mg/dL (7-18); Calcium 8.4 mg/dL (8.5-10.1); Chloride 109 meq/L (98-107); Glomerular Filtration Rate Greater Than 89 mL/min (>89); Glucose,Random 115 mg/dL (74-106); Potassium 4.2 meq/L (3.5-5.1); Sodium 141 meq/L (136-145)
[2018-06-26 21:06] LABS: Alanine Aminotransferase 42 U/L (10-53)
[2018-06-26 21:08] LABS: Alkaline Phosphatase 126 U/L (45-117); Total Protein 7.7 g/dL (6.4-8.2)
[2018-06-26] MEDS ORDERED: HYDROmorphone PF Inj 2 MG/ML Vial IV.PUSH ONE (21:09)
[2018-06-26 21:53] LABS: Eosinophils 1 % (0-4); Lymphocytes 12 % (9-44); Metamyelocytes 2 % (0-1); Monocytes 13 % (0-8); Myelocytes 2 % (0-0); Tallied Nucleated RBC 13 (0-0)
[2018-06-26 21:54] LABS: Ovalocytes 1+; Sickle Cells 1+; Spherocytes Occ
[2018-06-26 21:55] LABS: Platelet Estimate Normal (Normal); Platelet Morphology Normal (Normal); Toxic Granulation 1+
[2018-06-26] MEDS ORDERED: HYDROmorphone PF Inj 2 MG/ML Vial IV.PUSH PRN (22:17)
[2018-06-26] MEDS ORDERED: Bisacodyl 10 MG Supp RECTAL PRN (22:17)
--- NOTE | 2018-06-26 22:27 | P.HPIM ---
History of Present Illness Primary Care Physician: UNKNOWN 23-year-old female with a past medical history significant for sickle cell disease and asthma presents to the emergency department for the evaluation of a sickle cell pain crisis. The patient follows with Dr. Mcgregor. 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 She denies any chest pain or shortness of breath. No abdominal pain. No nausea/ vomiting/diarrhea. No fever/chills. No focal neurologic deficits. Review of Systems Review of Systems: all other systems reviewed are negative [facility] Medical History Medical History Asthma (Acute) Encounter for insertion of venous access port (Acute) Sickle cell anemia (Acute) Family History Family History Other Diabetes mellitus Social History Social History Substance History: No History of Abuse Smoking Status: Never smoker How Often Do You Have a Drink Containing Alcohol: Never Recent Travel in [facility] within the Last 8 Weeks: No Recent Out of Country Travel within the Last 8 Weeks: No Immunization History Tetanus Immunization: <5 Years Medications and Allergies Allergies Allergy/AdvReac Type Severity Reaction Status Date / Time amoxicillin Allergy Intermediate hives Verified 06/26/18 19:36 Home Medications Medication Instructions Recorded Confirmed Type aspirin [Aspir-81] 81 mg PO DAILY 11/13/17 06/26/18 History deferasirox [Jadenu] 28 mg/kg PO DAILY 11/13/17 06/26/18 History folic acid 1 mg PO DAILY 11/13/17 06/26/18 History hydroxyurea 500 mg PO DAILY 11/13/17 06/26/18 History Active Medications: Active Medications Bisacodyl (Dulcolax Supp) 10 mg RECTAL DAILY PRN PRN Reason: SEVERE CONSITIPATION Hydromorphone HCl (Dilaudid Pf Inj) 1 mg IV.PUSH Q4H PRN PRN Reason: PAIN SCALE 1 TO 10 Sodium Chloride (Ns Flush) 2 ml IV.FLUSH PRN PRN PRN Reason: FLUSH AFTER USING IV ACCESS Physical Exam Vital signs: Vital Signs 06/26/18 19:37 Temperature 98.7 F Pulse Rate 96 H Respiratory Rate 22 Blood Pressure 137/86 Pulse Oximetry 95 Intake & Output 06/26/18 06/26/18 06/27/18 06:59 18:59 06:59 Intake Total 1000 / 1000 Balance 1000 / 1000 Weight 57.606 kg Intake: IV 1000 / 1000 NS Inj 1,000 ML @ 1000 mls/hr 1000 / 1000 IV.SIG .Q1H [facility]CH[facility] Rx#:[id number] Narrative: Gen.: No acute distress Head: Normocephalic. Atraumatic. EENT: Pupils equal round and reactive to light. Nose without drainage. Airway intact. Throat without injection. Cardiovascular: Regular rate and rhythm. No murmurs, rubs or gallops. Respiratory: Lungs clear to auscultation bilaterally. No wheezes or rhonchi. Abdomen: Soft, nontender, nondistended. No peritoneal signs. Musculoskeletal: No gross deformities. No edema. Skin: No obvious rashes or erythema. Neuro: Sensory and motor grossly intact. Cranial nerves II through XII grossly intact. Results Labs CBC & Chem 7: 06/26/18 20:09 06/26/18 20:09 Imaging Impressions Chest X-Ray 06/26/18 19:33 CONCLUSION: No acute cardiopulmonary disease demonstrated. Caprini VTE Risk Assessment Caprini VTE Risk Assessment: No/Low Risk (score <= 1) Caprini Risk Assessment Model: Point Value = 1 Point Value = 2 Point Value = 3 Point Value = 5 Age 41-60 Minor surgery BMI > 25 kg/m2 Swollen legs Varicose veins or History of unexplained or recurrent spontaneous Oral contraceptives or hormone replacement Sepsis (< 1 month) Serious lung disease, including pneumonia (< 1 month) Abnormal pulmonary function Acute myocardial infarction Congestive heart failure (< 1 month) History of inflammatory bowel disease Medical patient at bed rest Age 61-74 Arthroscopic surgery Major open surgery (> 45 min) Laparoscopic surgery (> 45 min) Malignancy Confined to bed (> 72 hours) Immobilizing plaster cast Central venous access Age >= 75 History of VTE Family history of VTE Factor V Leiden Prothrombin [id number] Lupus anticoagulant Anticardiolipin antibodies Elevated serum homocysteine Heparin-induced thrombocytopenia Other congenital or acquired thrombophilia Stroke (< 1 month) Elective arthroplasty Hip, pelvis, or leg fracture Acute spinal cord injury (< 1 month) Prophylaxis Regimen: Total Risk Factor Score Risk Level Prophylaxis Regimen 0-1 Low Early ambulation 2 Moderate Order ONE of the following: *Sequential Compression Device (SCD) *Heparin 5000 units SQ BID 3-4 Higher Order ONE of the following medications: *Heparin 5000 units SQ TID *Enoxaparin/Lovenox 40 mg SQ daily (WT < 150 kg, CrCl > 30 mL/min) *Enoxaparin/Lovenox 30 mg SQ daily (WT < 150 kg, CrCl > 10-29 mL/min) *Enoxaparin/Lovenox 30 mg SQ BID (WT < 150 kg, CrCl > 30 mL/min) AND/OR *Sequential Compression Device (SCD) 5 or more Highest Order ONE of the following medications: *Heparin 5000 units SQ TID (Preferred with Epidurals) *Enoxaparin/Lovenox 40 mg SQ daily (WT < 150 kg, CrCl > 30 mL/min) *Enoxaparin/Lovenox 30 mg SQ daily (WT < 150 kg, CrCl > 10-29 mL/min) *Enoxaparin/Lovenox 30 mg SQ BID (WT < 150 kg, CrCl > 30 mL/min) AND *Sequential Compression Device (SCD) Assessment and Plan Plan Assessment/plan: 1. Sickle cell pain crisis Dilaudid for pain IV fluid hydration 2. Anemia Patient's hemoglobin 7.1, slightly lower than baseline Repeat CBC in a.m. Transfuse as needed FEN Regular diet Electrolytes: Monitor and replete as needed NS at 100 cc/lópez
[2018-06-26] MEDS: Sod Chloride 0.9% Inj 1,000 ML IV.CONT SCH (22:42)
[2018-06-27] MEDS ORDERED: HYDROmorphone PF Inj 2 MG/ML Vial IV.PUSH ONE (01:05)
[2018-06-27] MEDS: HYDROmorphone PF Inj 2 MG/ML Vial IV.PUSH PRN ×6 (04:13→23:19)
[2018-06-27] MEDS: Senna/Docusate Sodium 8.6/50 MG Tablet PO SCH ×2 (09:24→20:06)
[2018-06-27] MEDS: Sod Chloride 0.9% Inj 1,000 ML IV.CONT SCH ×2 (09:24→20:09)
[2018-06-27] MEDS ORDERED: Naloxone Inj 0.4 MG/ML Vial IV.PUSH PRN (11:53)
--- NOTE | 2018-06-27 12:03 | P.PNIM ---
Subjective Interval history: Follow-up sickle cell pain crisis. Patient is resting in bed, continues to report severe pain in her back and arms. She is requesting for her pain medication to be increased. Last hospitalization 10/30. Patient denies feeling dizzy, lightheaded, shortness of breath or chest pain. No abdominal pain , nausea or vomiting. Physical Exam Vital signs: Vital Signs 06/26/18 19:37 06/26/18 23:39 06/26/18 23:51 Temperature 98.7 F Pulse Rate 96 H 102 H 102 H Respiratory Rate 22 20 20 Blood Pressure 137/86 137/76 137/76 Pulse Oximetry 95 96 96 06/27/18 00:44 06/27/18 01:32 06/27/18 03:47 Temperature 98.1 F 98.2 F Pulse Rate 102 H 106 H 113 H Respiratory Rate 16 12 18 Blood Pressure 138/65 129/60 127/70 Pulse Oximetry 94 L 98 91 L 06/27/18 08:20 Temperature 99.6 F Pulse Rate 116 H Respiratory Rate 18 Blood Pressure 126/70 Pulse Oximetry 98 Intake & Output 06/26/18 06/27/18 06/27/18 18:59 06:59 18:59 Intake Total 1240 / 1240 1000 / 1000 Balance 1240 / 1240 1000 / 1000 Weight 57.606 kg Intake: IV 1000 / 1000 1000 / 1000 NS Inj 1,000 ML @ 100 mls/hr IV 1000 / 1000 .CONT .Q10H [facility] Rx#:[id number] NS Inj 1,000 ML @ 1000 mls/hr 1000 / 1000 IV.SIG .Q1H [facility]CH[facility] Rx#:[id number] Oral 240 / 240 Other: # Voids 1 Date of Last Bowel Movement 06/26/18 Narrative: Gen.: No acute distress Head: Normocephalic. Atraumatic. EENT: Pupils equal round and reactive to light. Nose without drainage. Airway intact. Throat without injection. Cardiovascular: Regular rate and rhythm. No murmurs, rubs or gallops. Respiratory: Lungs clear to auscultation bilaterally. No wheezes or rhonchi. Abdomen: Soft, nontender, nondistended. No peritoneal signs. Musculoskeletal: No gross deformities. No edema. Skin: No obvious rashes or erythema. Neuro: Sensory and motor grossly intact. Cranial nerves II through XII grossly intact. Results Labs CBC & Chem 7: 06/27/18 11:41 06/27/18 11:41 Imaging Imaging: Impressions Chest X-Ray 06/26/18 19:33 CONCLUSION: No acute cardiopulmonary disease demonstrated. Assessment and Plan Plan Sickle cell pain crisis -Dilaudid for pain -IV fluid hydration -f/u with Dr Mcgregor Hematology outpatient -continue patient's Hydrea Sickle cell anemia -Hgb 6.0, type and cross ordered. Transfuse 1 unit of PRBC's. 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 Progress Note: Quality VTE Deep Vein Thrombosis/Pulmonary Embolism Present on Admission: No
[2018-06-27] MEDS ORDERED: Hydroxyurea 500 MG Capsule PO SCH (12:15)
[2018-06-27] MEDS ORDERED: DEFERASIROX PO SCH ×2 (12:15→16:00)
[2018-06-27] MEDS: Folic Acid 1 MG Tablet PO SCH (12:52)
[2018-06-27 12:58] LABS: Baso # (Auto) 0.1 th/mm3 (0.0-0.2); Baso % (Auto) 0.4 % (0.0-2.0); Eos % (Auto) 0.2 % (0.0-4.0); Lymph # (Auto) 2.2 th/mm3 (1.0-4.8); Lymph % (Auto) 9.6 % (9.0-44.0); Mean Corpuscular HGB Conc 35.8 % (32.0-36.0); Mean Corpuscular Hemoglobin 34.7 pg (27.0-34.0); Mean Corpuscular Volume 96.9 fL (80.0-100.0); Mean Platelet Volume 7.9 fL (7.0-11.0); Mono % (Auto) 13.1 % (0.0-8.0); Neut # (Auto) 17.6 th/mm3 (1.8-7.7); Neut % (Auto) 76.7 % (16.0-70.0); Platelet Count 324 th/mm3 (150-450); Red Blood Count 1.71 mil/mm3 (4.00-5.30); Red Cell Distribution Width 21.1 % (11.6-17.2); White Blood Count 22.9 th/mm3 (4.0-11.0)
[2018-06-27 13:03] LABS: Hematocrit 16.6 % (35.0-46.0)
[2018-06-27] MEDS ORDERED: Acetaminophen 325 MG Tablet PO PRN (13:12)
[2018-06-27 13:16] LABS: Anion Gap 6 meq/L (5-15); Blood Urea Nitrogen 6 mg/dL (7-18); Calcium 7.9 mg/dL (8.5-10.1); Carbon Dioxide 25.7 meq/L (21.0-32.0); Chloride 110 meq/L (98-107); Glomerular Filtration Rate Greater Than 89 mL/min (>89); Glucose,Random 131 mg/dL (74-106); Potassium 4.2 meq/L (3.5-5.1); Sodium 142 meq/L (136-145)
[2018-06-27] MEDS ORDERED: Sodium Chlor 0.9% Inj 250 ML IV.SIG SCH (14:00)
[2018-06-27 14:03] LABS: Basophilic Stippling Heavy; Lymphocytes 14 % (9-44); Metamyelocytes 4 % (0-1); Monocytes 11 % (0-8); Myelocytes 4 % (0-0); Promyelocyte 1 % (0-0); Tallied Nucleated RBC 16 (0-0)
[2018-06-27 14:04] LABS: Howell-Jolly Bodies Present; Pappenheimer Bodies Present
[2018-06-27 14:05] LABS: Ovalocytes 2+; Platelet Estimate Normal (Normal); Platelet Morphology Normal (Normal); Sickle Cells 1+; Target Cells 1+
[2018-06-27] MEDS ORDERED: Hydroxyurea 500 MG Capsule PO ONE (15:45)
[2018-06-27] MEDS ORDERED: [UNRECOGNIZED DRUG - OTHER] PO SCH (16:00)
[2018-06-27] MEDS: Acetaminophen 325 MG Tablet PO PRN (22:09)
[2018-06-27] MEDS ORDERED: Heparin Central Flush 100 UNIT/ML 5 ML Vial IV.FLUSH PRN (22:49)
[2018-06-27] MEDS: Heparin Central Flush 100 UNIT/ML 5 ML Vial IV.FLUSH PRN (23:18)
[2018-06-28 00:24] LABS: Hemoglobin 7.1 gm/dL (11.6-15.3)
[2018-06-28 00:28] LABS: Hematocrit 19.5 % (35.0-46.0)
[2018-06-28] MEDS: HYDROmorphone PF Inj 2 MG/ML Vial IV.PUSH PRN ×7 (02:44→21:18)
[2018-06-28] MEDS: Sod Chloride 0.9% Inj 1,000 ML IV.CONT SCH ×4 (05:43→19:28)
[2018-06-28] MEDS ORDERED: DEFERASIROX PO SCH (08:00)
[2018-06-28] MEDS ORDERED: [UNRECOGNIZED DRUG - OTHER] PO SCH (08:00)
[2018-06-28] MEDS: Hydroxyurea 500 MG Capsule PO SCH (09:14)
[2018-06-28] MEDS: Folic Acid 1 MG Tablet PO SCH (09:14)
[2018-06-28] MEDS: Senna/Docusate Sodium 8.6/50 MG Tablet PO SCH ×2 (09:17→21:20)
--- NOTE | 2018-06-28 09:57 | MB ---
cc: Sonido Mcgregor MD DATE: 06/28/2018 REASON FOR CONSULTATION: Consult requested by hospitalist for followup of sickle cell painful crisis. HISTORY OF PRESENT ILLNESS: Sobeida is a 23-year-old female. 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 She had stroke in 2004, most likely due to the sickle cell painful crisis. Since then, she was placed on prophylactic blood transfusion once a month. Subsequently, she had developed a severe transfusion hemosiderosis. She has been on Jadenu and intermittent phlebotomy for the hemosiderosis. Due to severe hemosiderosis, the routine blood transfusion for stroke was stopped in 09/2016. The patient was last seen by me on 05/25/2018. She did not have any painful crisis at that time. She is a student at [employer]. Her parents live in [place]. The patient came to the emergency room complaining of severe back pain radiating to the left leg. This is one of the painful crisis that she usually gets. She was admitted to the hospital. She is getting Dilaudid 2 mg every 3 hours, hydration, blood transfusion, Hydrea. I have been asked to see the patient for further evaluation. The patient states that the Dilaudid 2 mg is not holding her pain. She is still in a lot of pain, especially in the back, radiating into the left leg. I have seen her before and she is not a drug seeker. She is not making up either. She is in painful crisis. She denies any shortness of breath or chest pain. The rest of the review of systems is negative. PAST MEDICAL HISTORY: Sickle cell anemia with multiple painful crises. Transfusion hemosiderosis. 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 PAST SURGICAL HISTORY: Brain surgery in 2006. She had middle cerebral artery anastomosis with a superficial artery. A liver biopsy, Infusaport, umbilical hernia repair. ALLERGIES: AMOXICILLIN. MEDICATIONS: Hydrea, Jadenu, oxycodone, Singular, gabapentin. In the hospital, she is getting Dilaudid as well. FAMILY HISTORY: Parents both alive and well. She has 1 sister. No brother and no children. SOCIAL HISTORY: The patient is single. She is a student at [employer]. She does not smoke cigarettes, does not drink alcohol. PHYSICAL EXAMINATION: GENERAL: Reveals a well-developed, -Cymro female in moderate distress due to the pain. VITAL SIGNS: Temperature 99.2, heart rate is 136, blood pressure is 108/68, O2 saturation 92% on room air. HEENT: PERRLA. EOMI, anicteric. No oral lesions noted. NECK: No lymphadenopathy noted. LUNGS: Clear. No wheezing, rhonchi, or rales. CARDIOVASCULAR: Tachycardia. ABDOMEN: Soft. EXTREMITIES: No pedal edema. NEUROLOGIC: Awake, alert and oriented x 3. SKIN: No significant lesions noted. BACK: Tenderness noted in the lower back. ASSESSMENT: 1. Sickle cell vasoocclusive painful crisis. 2. Transfusion hemosiderosis. 3. History of cerebrovascular accident in 2004 from sickle cell crisis. PLAN: I have reviewed her available records, and I have discussed with the patient regarding the sickle cell painful crisis. The blood tests from today are still pending. CBC from yesterday showed a white count of 22.9, hemoglobin is 6, platelet count is 324. The patient had received 1 unit of blood transfusion. The hemoglobin was repeated last night and came back at 7.1. CBC from this morning is still pending. The chemistry showed elevated LDH of 915 and total bilirubin is 2.4. This goes along with hemolysis. I agree with the blood transfusion, hydration, Hydrea, folic acid, Jadenu. However, I will change the Dilaudid from 2 mg every 3 hours p.r.n. to 3 mg every 3 hours as she is in significant pain. She is tachycardic. I have known her for the last several years. She does not have a drug-seeking habit. She is not really painful crisis. She usually does not get painful crisis that often that I know of since I have been seeing her for the last few years. She is writhing in pain. Therefore, I will change the Dilaudid from 2 mg to 3 mg IV to be given every 3 hours p.r.n. Certainly, we will hold off on the Dilaudid for increased sedation. My recommendation is to continue to monitor her CBC. Further recommendations will be based on her hospital stay. Thank you for asking my opinion. MD LYNNE Sommers/mariana , 09:13 AM , 09:29 AM MTDKaitlin
--- NOTE | 2018-06-28 12:28 | P.PNIM ---
Subjective Interval history: Follow-up for sickle cell crisis. Patient is currently doing well. Denies any chest pain, fever or chills. Due to some shortness of breath , she is requiring nasal cannula oxygen. She denies any cough or abdominal pain. Pain is well controlled. Physical Exam Vital signs: Vital Signs 06/27/18 13:48 06/27/18 16:00 06/27/18 17:34 Temperature 99.8 F H 99.6 F Pulse Rate 115 H 111 H Respiratory Rate 20 16 20 Blood Pressure 103/75 126/63 Pulse Oximetry 94 L 95 06/27/18 17:52 06/27/18 20:00 06/27/18 21:46 Temperature 99.0 F 100 F H 101 F H Pulse Rate 107 H 107 H 117 H Respiratory Rate 18 16 20 Blood Pressure 127/63 121/58 L 124/69 Pulse Oximetry 98 100 96 06/28/18 00:30 06/28/18 00:40 06/28/18 04:26 Temperature 100.2 F H Pulse Rate 123 H Respiratory Rate 16 20 16 Blood Pressure 135/64 Pulse Oximetry 95 06/28/18 04:35 06/28/18 08:00 06/28/18 11:12 Temperature 99.3 F 99.2 F 101.9 F H Pulse Rate 132 H 136 H 120 H Respiratory Rate 20 16 16 Blood Pressure 127/70 108/68 117/60 Pulse Oximetry 98 92 L 91 L Intake & Output 06/27/18 06/28/18 06/28/18 18:59 06:59 18:59 Intake Total 1000 / 1000 1010 / 1010 Balance 1000 / 1000 1010 / 1010 Weight 53.7 kg Intake: IV 1000 / 1000 1010 / 1010 NS Inj 1,000 ML @ 100 mls/hr IV 1000 / 1000 1000 / 1000 .CONT .Q10H [facility] Rx#:[id number] NS Inj 250 ML @ 15 mls/hr IV. 10 / 10 SIG ONCE [facility] Rx#:[id number] Intake (Blood Product) Amt 0 / 0 Rbc As-3 Leukoreduced Unit 0 / 0 [id number] Other: # Voids 1 3 Date of Last Bowel Movement 06/26/18 Narrative: Gen.: No acute distress Head: Normocephalic. Atraumatic. EENT: Pupils equal round and reactive to light. Nose without drainage. Airway intact. Throat without injection. Cardiovascular: Regular rate and rhythm. No murmurs, rubs or gallops. Respiratory: Lungs clear to auscultation bilaterally. No wheezes or rhonchi. Abdomen: Soft, nontender, nondistended. No peritoneal signs. Musculoskeletal: No gross deformities. No edema. Skin: No obvious rashes or erythema. Neuro: Sensory and motor grossly intact. Cranial nerves II through XII grossly intact. Results Labs CBC & Chem 7: 06/27/18 23:35 06/27/18 11:41 Assessment and Plan Plan Ms. Zepeda is a pleasant 23-year-old -[place]og[place]ese female with a history of sickle cell disease and asthma who presents to the emergency department on 2018 due to sickle cell pain crisis. She follows up with Dr. Mcgregor, data entry coordinator. She was having pain in her bilateral lower back. She did not have any chest pain or shortness of breath. Patient was a started on IV hydration, Dilaudid for pain management. Acute sickle cell pain crisis Appreciate hematology input. Continue fluid, folic acid, hydroxyurea, aspirin. -Continue hydromorphone 3 mg IV every 3 hours as needed History of transfusion hemosiderosis Currently Jadenu is on hold. Hx of CVA from sickle cell -Continue Aspirin. Hx of Asthma - stable. Full code. Ambulation. Discharge plan: Once pain is well controlled, patient can be discharged. Anticipate another 2-3 days in the hospital. Progress Note: Quality VTE Deep Vein Thrombosis/Pulmonary Embolism Present on Admission: No
[2018-06-28] MEDS: Acetaminophen 325 MG Tablet PO PRN (12:51)
[2018-06-29] MEDS: HYDROmorphone PF Inj 2 MG/ML Vial IV.PUSH PRN ×7 (00:38→22:02)
[2018-06-29] MEDS: Sod Chloride 0.9% Inj 1,000 ML IV.CONT SCH ×5 (00:41→22:03)
[2018-06-29] MEDS: Acetaminophen 325 MG Tablet PO PRN ×3 (03:04→22:03)
--- NOTE | 2018-06-29 05:37 | XR ---
EXAM DATE: 06/29/2018 3:45 AM EST AGE/SEX: 23 years / Female INDICATIONS: Pneumonia. CLINICAL DATA: This is the patient's subsequent encounter. Patient reports that signs and symptoms h ave been present for 4 - 6 days and indicates a pain score of 0/10. MEDICAL/SURGICAL HISTORY: . Asthma. Sickle Cell disease. . Venous access port. COMPARISON: C, CHEST 1V SINGLE AP, 06/26/2018. . FINDINGS: Chest port catheter in stable position. Cardiac enlargement with patchy bilateral primarily perihilar infiltrates. Small left effusion. CONCLUSION: Bilateral infiltrates and small left effusion. Electronically signed by: Keon Carrington MD Board Certified Radiologist 06/29/2018 5:36 AM EST
[2018-06-29] MEDS: Heparin Central Flush 100 UNIT/ML 5 ML Vial IV.FLUSH PRN (05:40)
[2018-06-29 05:43] LABS: Baso # (Auto) 0.2 th/mm3 (0.0-0.2); Baso % (Auto) 1.1 % (0.0-2.0); Eos # (Auto) 0.3 th/mm3 (0.0-0.4); Eos % (Auto) 1.3 % (0.0-4.0); Lymph # (Auto) 2.2 th/mm3 (1.0-4.8); Lymph % (Auto) 10.2 % (9.0-44.0); Mean Corpuscular Hemoglobin 33.4 pg (27.0-34.0); Mean Corpuscular Volume 91.5 fL (80.0-100.0); Mean Platelet Volume 7.3 fL (7.0-11.0); Mono # (Auto) 1.6 th/mm3 (0.0-0.9); Mono % (Auto) 7.3 % (0.0-8.0); Neut # (Auto) 17.1 th/mm3 (1.8-7.7); Neut % (Auto) 80.1 % (16.0-70.0); Platelet Count 292 th/mm3 (150-450); Red Blood Count 1.98 mil/mm3 (4.00-5.30); Red Cell Distribution Width 23.3 % (11.6-17.2); White Blood Count 21.4 th/mm3 (4.0-11.0)
[2018-06-29 05:44] LABS: Mean Corpuscular HGB Conc 36.6 % (32.0-36.0)
[2018-06-29 05:50] LABS: Hematocrit 18.1 % (35.0-46.0); Hemoglobin 6.6 gm/dL (11.6-15.3)
[2018-06-29 06:24] LABS: Lymphocytes 7 % (9-44); Monocytes 4 % (0-8); Myelocytes 1 % (0-0); Tallied Nucleated RBC 21 (0-0)
[2018-06-29 06:25] LABS: Howell-Jolly Bodies Present; Pappenheimer Bodies Present; Platelet Estimate Normal (Normal); Platelet Morphology Normal (Normal); Sickle Cells 1+
[2018-06-29 06:27] LABS: Polychromasia 4.8 % (0.0-1.9)
[2018-06-29] MEDS ORDERED: Sodium Chlor 0.9% Inj 250 ML IV.SIG SCH (07:00)
[2018-06-29] MEDS: Folic Acid 1 MG Tablet PO SCH (09:45)
[2018-06-29] MEDS: Hydroxyurea 500 MG Capsule PO SCH (09:45)
[2018-06-29] MEDS: Senna/Docusate Sodium 8.6/50 MG Tablet PO SCH ×2 (09:46→22:02)
[2018-06-29 13:17] LABS: Hematocrit 22.3 % (35.0-46.0); Hemoglobin 8.1 gm/dL (11.6-15.3)
--- NOTE | 2018-06-29 15:48 | P.PNONC ---
Subjective Interval history: T-max 99.4 this morning. Patient reports she continues to have pain in her back and down her bilateral legs. She denies chest pain She denies shortness of breath She reports that she had a cough with congestion prior to coming into the hospital. Objective Vital Signs/Intake & Output: Vital Signs 06/28/18 16:00 06/28/18 19:27 06/28/18 20:00 Temperature 99.3 F Pulse Rate 118 H Respiratory Rate 16 18 20 Blood Pressure 133/68 Pulse Oximetry 100 92 L 06/28/18 20:05 06/28/18 22:01 06/28/18 23:20 Temperature 100.1 F H Pulse Rate 120 H Respiratory Rate 20 Blood Pressure 141/60 H Pulse Oximetry 97 93 L 100 06/29/18 00:30 06/29/18 03:31 06/29/18 03:32 Temperature 99.5 F Pulse Rate 127 H 113 H Respiratory Rate 20 19 Blood Pressure 126/63 Pulse Oximetry 91 L 94 L 06/29/18 03:40 06/29/18 04:00 06/29/18 04:45 Temperature 98.6 F 98.7 F Pulse Rate 110 H Respiratory Rate 20 Blood Pressure 118/59 L Pulse Oximetry 98 98 06/29/18 07:27 06/29/18 07:35 06/29/18 07:46 Temperature 99.3 F 99.3 F 98.5 F Pulse Rate 94 H 98 H 96 H Respiratory Rate 18 18 Blood Pressure 119/60 119/60 116/60 Pulse Oximetry 90 L 86 L 93 L 06/29/18 08:38 06/29/18 10:20 06/29/18 11:20 Temperature 98.9 F 99.4 F 99.1 F Pulse Rate 91 H 97 H 104 H Respiratory Rate 20 Blood Pressure 129/67 120/62 106/56 L Pulse Oximetry 93 L 95 93 L 06/29/18 13:07 Temperature Pulse Rate Respiratory Rate Blood Pressure Pulse Oximetry 90 L Intake & Output 06/28/18 06/29/18 06/29/18 18:59 06:59 18:59 Intake Total 1010 / 1010 1999 410 / 410 Balance 1010 / 1010 1999 410 / 410 Weight 126 lb 8.725 oz Intake: IV 1010 / 1010 1999 10 10 NS Inj 1,000 ML @ 100 mls/hr IV 1000 / 1000 1999 / 1999 .CONT .Q10H [facility] Rx#:[id number] NS Inj 250 ML @ 15 mls/hr IV. SIG ONCE [facility] Rx#:[id number] Intake (Blood Product) Amt 400 / 400 Rbc As-3 Leukoreduced Unit 400 / 400 [id number] Other: # Voids 5 3 1 Date of Last Bowel Movement 06/26/18 06/27/18 Result Diagrams: 06/29/18 12:24 06/27/18 11:41 Laboratory Results: Laboratory Results - last 24 hr 06/27/18 06/29/18 06/29/18 15:15 05:32 06:29 WBC 21.4 H RBC 1.98 L Hgb 6.6 L* Hct 18.1 L* MCV 91.5 D MCH 33.4 MCHC 36.6 H RDW 23.3 H Plt Count 292 MPV 7.3 Prelim Diff (Auto) Slide review pending Neut % (Auto) 80.1 H Lymph % (Auto) 10.2 [place] % (Auto) 7.3 Eos % (Auto) 1.3 Baso % (Auto) 1.1 Neut # (Auto) 17.1 H Lymph # (Auto) 2.2 [place] # (Auto) 1.6 H Eos # (Auto) 0.3 Baso # (Auto) 0.2 WBC Differential Manual diff final Seg Neuts % (Manual) 87 H Band Neuts % (Manual) 1 Lymphocytes % (Manual) 7 L Monocytes % (Manual) 4 Myelocytes % (Man) 1 H Abs Neuts (Manual) 19.0 H Nucleated RBCs/100 WBC 21 H Differential Comment . Platelet Estimate Normal Platelet Morphology Normal Polychromasia 4.8 H Basophilic Stippling Faint H Pappenheimer Bodies Present H Sickle Cells 1+ H [place] Bodies Present H MTS Gel Crossmatch See Detail See Detail 06/29/18 12:24 WBC RBC Hgb 8.1 L Hct 22.3 L MCV MCH MCHC RDW Plt Count MPV Prelim Diff (Auto) Neut % (Auto) Lymph % (Auto) [place] % (Auto) Eos % (Auto) Baso % (Auto) Neut # (Auto) Lymph # (Auto) [place] # (Auto) Eos # (Auto) Baso # (Auto) WBC Differential Seg Neuts % (Manual) Band Neuts % (Manual) Lymphocytes % (Manual) Monocytes % (Manual) Myelocytes % (Man) Abs Neuts (Manual) Nucleated RBCs/100 WBC Differential Comment Platelet Estimate Platelet Morphology Polychromasia Basophilic Stippling Pappenheimer Bodies Sickle Cells [place] Bodies MTS Gel Crossmatch Imaging Studies: Impressions Chest X-Ray 06/29/18 03:18 CONCLUSION: Bilateral infiltrates and small left effusion. Medications: Active Medications Generic Name Dose Route Start Last Admin Trade Name Freq PRN Reason Stop Dose Admin Acetaminophen 650 mg 06/26/18 22:17 06/29/18 07:22 Tylenol PO 650 mg Q4H PRN Administration Temp > 100.4 Acetaminophen 650 mg 06/27/18 13:12 06/27/18 17:47 Tylenol PO 650 mg Q4H PRN Administration SEE LABEL COMMENTS Albuterol 1 ampul 06/29/18 03:18 06/29/18 03:27 Duoneb Neb (Prn) NEB 1 ampul Q4HR NEB PRN Administration COUGH Aspirin 81 mg 06/27/18 12:15 06/29/18 09:45 Ecotrin PO 81 mg DAILY [facility] Administration Folic Acid 1 mg 06/27/18 12:15 06/29/18 09:45 Folic Acid PO 1 mg DAILY B[facility]CHRA Administration Heparin Sodium (Porcine) 250 unit 06/27/18 22:49 06/29/18 05:40 Heparin Central Flush IV.FLUSH 250 unit PRN PRN Administration Flush Infusapot Hydromorphone HCl 3 mg 06/28/18 08:00 06/29/18 15:14 Dilaudid Pf Inj IV.PUSH 3 mg Q3H PRN Administration PAIN SCALE 1 TO 10 Hydroxyurea 2,000 mg 06/28/18 09:00 06/28/18 09:14 Hydrea PO 2,000 mg Q48H [facility] Administration Hydroxyurea 1,500 mg 06/29/18 09:00 06/29/18 09:45 Hydrea PO 1,500 mg Q48H [facility] Administration Sodium Chloride 1,000 mls @ 100 mls/hr 06/26/18 22:30 06/29/18 11:11 Ns Inj IV.CONT Not Given .Q10H [facility] Sodium Chloride 250 mls @ 15 mls/hr 06/29/18 07:00 02/15/19 07:26 Ns Inj IV.SIG 06/29/18 23:39 Infused ONCE [facility] Infusion Ondansetron HCl 4 mg 06/26/18 22:17 06/27/18 03:13 Zofran Inj IV.PUSH 4 mg Q6H PRN Administration NAUSEA OR VOMITING Senna/Docusate Sodium 1 tab 06/27/18 09:00 06/29/18 09:46 Maria Isabel-Colace PO Not Given BID [facility] Sodium Chloride 2 ml 06/27/18 09:00 06/29/18 09:46 Ns Flush IV.FLUSH Not Given BID [facility]RA Sodium Chloride 2 ml 06/26/18 22:17 06/27/18 22:10 Ns Flush IV.FLUSH 2 ml PRN PRN Administration FLUSH AFTER USING IV ACCESS Objective Remarks: GENERAL: Young female resting in bed talking with visitors SKIN: Warm and dry. HEAD: Normocephalic. EYES: No scleral icterus. No injection or drainage. NECK: Supple, trachea midline. No JVD or lymphadenopathy. CARDIOVASCULAR: Tachycardic. RESPIRATORY: Diminished to bilateral bases. Soft rales. GASTROINTESTINAL: Abdomen soft, non-tender, nondistended. EXTREMITIES: No cyanosis, or edema. MUSCULOSKELETAL: Adequate muscle tone. NEUROLOGICAL: No obvious focal deficit. Awake, alert, and oriented x3. 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 She is on Jadenu and Hydrea on an outpatient basis. 1. Reviewed chest x-ray that showed bilateral infiltrates with a small left effusion. The patient does report she felt like she had an upper respiratory infection prior to coming into the hospital. When looking at her vital signs her T-max was 101.9 yesterday morning. I am placing her on Levaquin 750 mg IV once daily. 2. Patient denies any shortness of breath at present. Continue to monitor O2 saturations and any sign of acute chest syndrome. 3. Blood cultures x2 for temperature greater than 100.6. Continue supportive care. - Attending Statement The exam, history, and the medical decision-making described in the above note were completed with the assistance of the mid-level provider. I reviewed and agree with the findings presented. I attest that I had a [id number] encounter with the patient on the same day, and personally performed and documented my assessment and findings in the medical record. Patient is complaining of sore throat Her pain is little bit better Continue the present narcotics Patient has febrile illness. Blood cultures have been done. Started on IV Levaquin Continue to monitor CBC No signs of acute chest syndrome.
--- NOTE | 2018-06-29 20:51 | P.PNIM ---
Subjective Interval history: Follow-up for sickle cell crisis. Patient is currently resting in bed. Complains of back pain. She received 1 unit of PRBCs after hemoglobin was found to be 6.6. Physical Exam Vital signs: Vital Signs 06/28/18 22:01 06/28/18 23:20 06/29/18 00:30 Temperature 99.5 F Pulse Rate 127 H Respiratory Rate 20 Blood Pressure 126/63 Pulse Oximetry 93 L 100 91 L 06/29/18 03:31 06/29/18 03:32 06/29/18 03:40 Temperature Pulse Rate 113 H Respiratory Rate 19 Blood Pressure Pulse Oximetry 94 L 98 06/29/18 04:00 06/29/18 04:45 06/29/18 07:27 Temperature 98.6 F 98.7 F 99.3 F Pulse Rate 110 H 94 H Respiratory Rate 20 18 Blood Pressure 118/59 L 119/60 Pulse Oximetry 98 90 L 06/29/18 07:35 06/29/18 07:46 06/29/18 08:38 Temperature 99.3 F 98.5 F 98.9 F Pulse Rate 98 H 96 H 91 H Respiratory Rate 18 Blood Pressure 119/60 116/60 129/67 Pulse Oximetry 86 L 93 L 93 L 06/29/18 10:20 06/29/18 11:20 06/29/18 13:07 Temperature 99.4 F 99.1 F Pulse Rate 97 H 104 H Respiratory Rate 20 Blood Pressure 120/62 106/56 L Pulse Oximetry 95 93 L 90 L 06/29/18 16:15 Temperature 99.5 F Pulse Rate 99 H Respiratory Rate 20 Blood Pressure 120/69 Pulse Oximetry 97 Intake & Output 06/29/18 06/29/18 06/30/18 06:59 18:59 06:59 Intake Total 1999 1410 / 1410 Balance 1999 1410 / 1410 Weight 57.4 kg Intake: IV 1999 1010 / 1010 NS Inj 1,000 ML @ 100 mls/hr IV 1999 1000 / 1000 .CONT .Q10H [facility] Rx#:[id number] NS Inj 250 ML @ 15 mls/hr IV. 10 SIG ONCE [facility] Rx#:[id number] Intake (Blood Product) Amt 400 / 400 Rbc As-3 Leukoreduced Unit 400 / 400 [id number] Other: # Voids 3 1 Date of Last Bowel Movement 06/27/18 Narrative: Gen.: No acute distress Head: Normocephalic. Atraumatic. EENT: Pupils equal round and reactive to light. Nose without drainage. Airway intact. Throat without injection. Cardiovascular: Regular rate and rhythm. No murmurs, rubs or gallops. Respiratory: Lungs clear to auscultation bilaterally. No wheezes or rhonchi. Abdomen: Soft, nontender, nondistended. No peritoneal signs. Musculoskeletal: No gross deformities. No edema. Skin: No obvious rashes or erythema. Neuro: Sensory and motor grossly intact. Cranial nerves II through XII grossly intact. Results Labs CBC & Chem 7: 06/29/18 12:24 06/27/18 11:41 Imaging Imaging: Impressions Chest X-Ray 06/29/18 03:18 CONCLUSION: Bilateral infiltrates and small left effusion. Assessment and Plan Plan Ms. Zepeda is a pleasant 23-year-old -[place] female with a history of sickle cell disease and asthma who presents to the emergency department on 2018 due to sickle cell pain crisis. She follows up with Dr. Mcgregor, snapper on. She was having pain in her bilateral lower back. She did not have any chest pain or shortness of breath. Patient was a started on IV hydration, Dilaudid for pain management. Acute sickle cell pain crisis Appreciate hematology input. Continue fluid, folic acid, hydroxyurea, aspirin. -Continue hydromorphone 3 mg IV every 3 hours as needed Probable pneumonia -Continue Levaquin 750mg Qday, breathing treatments, supplemental oxygen. History of transfusion hemosiderosis Currently denu is on hold. Hx of CVA from sickle cell -Continue Aspirin. Hx of Asthma - stable. Full code. Ambulation. Progress Note: Quality VTE Deep Vein Thrombosis/Pulmonary Embolism Present on Admission: No
[2018-06-30] MEDS: HYDROmorphone PF Inj 2 MG/ML Vial IV.PUSH PRN ×7 (01:21→21:55)
[2018-06-30] MEDS: Acetaminophen 325 MG Tablet PO PRN ×2 (01:24→05:53)
[2018-06-30] MEDS: Sod Chloride 0.9% Inj 1,000 ML IV.CONT SCH ×2 (05:55→15:29)
[2018-06-30] MEDS: Hydroxyurea 500 MG Capsule PO SCH (08:33)
[2018-06-30] MEDS: Folic Acid 1 MG Tablet PO SCH (08:34)
[2018-06-30] MEDS: Senna/Docusate Sodium 8.6/50 MG Tablet PO SCH ×2 (08:34→21:55)
[2018-06-30 11:16] LABS: Baso # (Auto) 0.1 th/mm3 (0.0-0.2); Baso % (Auto) 0.3 % (0.0-2.0); Eos # (Auto) 0.2 th/mm3 (0.0-0.4); Eos % (Auto) 1.2 % (0.0-4.0); Lymph # (Auto) 0.7 th/mm3 (1.0-4.8); Lymph % (Auto) 3.9 % (9.0-44.0); Mean Corpuscular HGB Conc 35.3 % (32.0-36.0); Mean Corpuscular Hemoglobin 32.6 pg (27.0-34.0); Mean Corpuscular Volume 92.2 fL (80.0-100.0); Mean Platelet Volume 7.8 fL (7.0-11.0); Mono # (Auto) 1.7 th/mm3 (0.0-0.9); Mono % (Auto) 9.4 % (0.0-8.0); Neut # (Auto) 15.5 th/mm3 (1.8-7.7); Neut % (Auto) 85.2 % (16.0-70.0); Platelet Count 274 th/mm3 (150-450); Red Blood Count 2.21 mil/mm3 (4.00-5.30); Red Cell Distribution Width 20.9 % (11.6-17.2); White Blood Count 18.2 th/mm3 (4.0-11.0)
[2018-06-30 11:30] LABS: Hematocrit 20.4 % (35.0-46.0); Hemoglobin 7.2 gm/dL (11.6-15.3)
[2018-06-30 11:59] LABS: Eosinophils 3 % (0-4); Lymphocytes 6 % (9-44); Monocytes 9 % (0-8); Tallied Nucleated RBC 75 (0-0)
[2018-06-30 12:00] LABS: Basophilic Stippling Moderate; Polychromasia 2.1 % (0.0-1.9)
[2018-06-30 12:01] LABS: Howell-Jolly Bodies Present; Pappenheimer Bodies Present; Platelet Estimate Normal (Normal); Sickle Cells 1+; Target Cells 1+
[2018-06-30 12:02] LABS: Platelet Morphology Normal (Normal)
--- NOTE | 2018-06-30 12:47 | P.PNIM ---
Subjective Interval history: Follow-up for sickle cell crisis. Patient is currently resting in bed. This morning she has some nausea vomiting after breakfast. No fever or chills. She is currently on nasal cannula 2-3 L. Physical Exam Vital signs: Vital Signs 06/29/18 13:07 06/29/18 16:15 06/29/18 20:00 Temperature 99.5 F 97.9 F Pulse Rate 99 H 86 Respiratory Rate 20 18 Blood Pressure 120/69 97/52 L Pulse Oximetry 90 L 97 94 L 06/29/18 22:06 06/30/18 01:15 06/30/18 02:33 Temperature 100.2 F H Pulse Rate 119 H Respiratory Rate 18 20 20 Blood Pressure 119/59 L Pulse Oximetry 93 L 06/30/18 02:54 06/30/18 04:00 06/30/18 05:00 Temperature 100.4 F H 97.3 F L Pulse Rate 78 101 H Respiratory Rate 16 17 Blood Pressure 116/58 L Pulse Oximetry 96 06/30/18 06:43 06/30/18 08:00 Temperature 98.9 F 98.5 F Pulse Rate 96 H Respiratory Rate 18 Blood Pressure 117/57 L Pulse Oximetry 98 Intake & Output 06/29/18 06/30/18 06/30/18 18:59 06:59 18:59 Intake Total 1410 / 1410 1592 / 1592 Balance 1410 / 1410 1592 / 1592 Weight 55.6 kg Intake: IV 1010 / 1010 1150 / 1150 NS Inj 1,000 ML @ 100 mls/hr IV 1000 / 1000 1000 / 1000 .CONT .Q10H [facility] Rx#:[id number] Levaquin 750 mg Premix Inj 150 150 / 150 ML @ 100 mls/hr IV.SIG Q24H [facility] Rx#:[id number] NS Inj 250 ML @ 15 mls/hr IV. 10 / 10 SIG ONCE [facility] Rx#:[id number] Oral 442 / 442 Intake (Blood Product) Amt 400 / 400 Rbc As-3 Leukoreduced Unit 400 / 400 [id number] Other: # Voids 1 2 Date of Last Bowel Movement 06/27/18 06/27/18 Narrative: Gen.: No acute distress Head: Normocephalic. Atraumatic. EENT: Pupils equal round and reactive to light. Nose without drainage. Airway intact. Throat without injection. Cardiovascular: Regular rate and rhythm. No murmurs, rubs or gallops. Respiratory: Lungs clear to auscultation bilaterally. No wheezes or rhonchi. Abdomen: Soft, nontender, nondistended. No peritoneal signs. Musculoskeletal: No gross deformities. No edema. Skin: No obvious rashes or erythema. Neuro: Sensory and motor grossly intact. Cranial nerves II through XII grossly intact. Results Labs CBC & Chem 7: 06/30/18 10:35 06/27/18 11:41 Assessment and Plan Plan Ms. Zepeda is a pleasant 23-year-old -[place] female with a history of sickle cell disease and asthma who presents to the emergency department on 2018 due to sickle cell pain crisis. She follows up with Dr. Mcgregor, psych coordinator. She was having pain in her bilateral lower back. She did not have any chest pain or shortness of breath. Patient was a started on IV hydration, Dilaudid for pain management. Acute sickle cell pain crisis Appreciate hematology input. Continue fluid, folic acid, hydroxyurea, aspirin. -Continue hydromorphone 3 mg IV every 3 hours as needed Hemoglobin dropped to 8.1 --> 7.2 today. No transfusion unless recommended by hematology or hemoglobin drops below 6. Probable pneumonia -Continue Levaquin 750mg Qday, breathing treatments, supplemental oxygen. Wean off supplemental O2. History of transfusion hemosiderosis Currently Jadenu is on hold. Hx of CVA from sickle cell -Continue Aspirin. Hx of Asthma - stable. Full code. Ambulation. Progress Note: Quality VTE Deep Vein Thrombosis/Pulmonary Embolism Present on Admission: No
--- NOTE | 2018-06-30 15:56 | P.PNONC ---
Subjective Interval history: 23-year-old female patient currently hospitalized with sickle cell vaso- occlusive pain crisis. Plan: 1. Sickle cell vaso-occlusive pain crisis, patient reports pain is now confined to bilateral thighs and back. Her grandmother reports she is much improved. 2. Sickle cell anemia, hemoglobin 7.2 g/dL, patient status post 1 unit PRBCs on 06/29/2018. 3. Fever, T-max 100.4. Noted no blood cultures have been drawn, ordered today. UA also ordered. Patient has been on Levaquin. Chest x-ray revealed bilateral infiltrates and small left effusion. 4. Continue supportive care. Objective Vital Signs/Intake & Output: Vital Signs 06/29/18 16:15 06/29/18 20:00 06/29/18 22:06 Temperature 99.5 F 97.9 F Pulse Rate 99 H 86 Respiratory Rate 20 18 18 Blood Pressure 120/69 97/52 L Pulse Oximetry 97 94 L 06/30/18 01:15 06/30/18 02:33 06/30/18 02:54 Temperature 100.2 F H Pulse Rate 119 H 78 Respiratory Rate 20 20 16 Blood Pressure 119/59 L Pulse Oximetry 93 L 06/30/18 04:00 06/30/18 05:00 06/30/18 06:43 Temperature 100.4 F H 97.3 F L 98.9 F Pulse Rate 101 H Respiratory Rate 17 Blood Pressure 116/58 L Pulse Oximetry 96 06/30/18 08:00 06/30/18 12:00 06/30/18 15:43 Temperature 98.5 F 98.2 F Pulse Rate 96 H 91 H 75 Respiratory Rate 18 18 18 Blood Pressure 117/57 L 123/72 Pulse Oximetry 98 99 Intake & Output 06/29/18 06/30/18 06/30/18 18:59 06:59 18:59 Intake Total 1410 / 1410 1592 / 1592 1000 / 1000 Balance 1410 / 1410 1592 / 1592 1000 / 1000 Weight 55.6 kg Intake: IV 1010 / 1010 1150 / 1150 1000 / 1000 NS Inj 1,000 ML @ 100 mls/hr IV 1000 / 1000 1000 / 1000 1000 / 1000 .CONT .Q10H [facility] Rx#:[id number] Levaquin 750 mg Premix Inj 150 150 / 150 ML @ 100 mls/hr IV.SIG Q24H [facility] Rx#:[id number] NS Inj 250 ML @ 15 mls/hr IV. SIG ONCE [facility] Rx#:[id number] Oral 442 / 442 Intake (Blood Product) Amt 400 / 400 Rbc As-3 Leukoreduced Unit 400 / 400 [id number] Other: # Voids 1 2 Date of Last Bowel Movement 06/27/18 06/27/18 Result Diagrams: 06/30/18 10:35 06/27/18 11:41 Laboratory Results: Laboratory Results - last 24 hr 06/30/18 06/30/18 03:31 10:35 WBC 18.2 H RBC 2.21 L Hgb 7.2 L Hct 20.4 L* MCV 92.2 MCH 32.6 MCHC 35.3 RDW 20.9 H Plt Count 274 MPV 7.8 Prelim Diff (Auto) Slide review pending Neut % (Auto) 85.2 H Lymph % (Auto) 3.9 L [place] % (Auto) 9.4 H Eos % (Auto) 1.2 Baso % (Auto) 0.3 Neut # (Auto) 15.5 H Lymph # (Auto) 0.7 L [place] # (Auto) 1.7 H Eos # (Auto) 0.2 Baso # (Auto) 0.1 WBC Differential Manual diff final Seg Neuts % (Manual) 82 H Lymphocytes % (Manual) 6 L Monocytes % (Manual) 9 H Eosinophils % (Manual) 3 Abs Neuts (Manual) 14.9 H Nucleated RBCs/100 WBC 75 H Differential Comment . Platelet Estimate Normal Platelet Morphology Normal Polychromasia 2.1 H Basophilic Stippling Moderate H Pappenheimer Bodies Present H Sickle Cells 1+ H Target Cells 1+ H [place] Bodies Present H Keratocytes Occ H Lactic Acid 0.7 Medications: Active Medications Generic Name Dose Route Start Last Admin Trade Name Freq PRN Reason Stop Dose Admin Acetaminophen 650 mg 06/26/18 22:17 06/30/18 05:53 Tylenol PO 650 mg Q4H PRN Administration Temp > 100.4 Acetaminophen 650 mg 06/27/18 13:12 06/27/18 17:47 Tylenol PO 650 mg Q4H PRN Administration SEE LABEL COMMENTS Al Hydroxide/Mg Hydroxide 30 ml 06/26/18 22:17 06/29/18 22:38 Milk Of Magnesia Liq PO 30 ml Q12H PRN Administration Mild Constipation Albuterol 1 ampul 06/30/18 03:00 06/30/18 15:42 Duoneb Neb (Jessy) NEB 1 ampul Q6HR NEB JESSY Administration Aspirin 81 mg 06/27/18 12:15 06/30/18 08:33 Ecotrin PO 81 mg DAILY JESSY Administration Folic Acid 1 mg 06/27/18 12:15 06/30/18 08:34 Folic Acid PO 1 mg DAILY JESSY Administration Heparin Sodium (Porcine) 250 unit 06/27/18 22:49 06/29/18 05:40 Heparin Central Flush IV.FLUSH 250 unit PRN PRN Administration Flush Infusapot Hydromorphone HCl 3 mg 06/28/18 08:00 06/30/18 15:25 Dilaudid Pf Inj IV.PUSH 3 mg Q3H PRN Administration PAIN SCALE 1 TO 10 Hydroxyurea 2,000 mg 06/28/18 09:00 06/30/18 08:33 Hydrea PO 2,000 mg Q48H JESSY Administration Hydroxyurea 1,500 mg 06/29/18 09:00 06/29/18 09:45 Hydrea PO 1,500 mg Q48H JESSY Administration Sodium Chloride 1,000 mls @ 100 mls/hr 06/26/18 22:30 06/30/18 15:29 Ns Inj IV.CONT 100 mls/hr .Q10H JESSY Administration Levofloxacin/Dextrose 150 mls @ 100 mls/hr 06/29/18 17:00 06/29/18 23:15 Levaquin 750 Mg Premix Inj IV.SIG Infused Q24H JESSY Infusion Ondansetron HCl 4 mg 06/26/18 22:17 06/27/18 03:13 Zofran Inj IV.PUSH 4 mg Q6H PRN Administration NAUSEA OR VOMITING Senna/Docusate Sodium 1 tab 06/27/18 09:00 06/30/18 08:34 Maria Isabel-Colace PO 1 tab BID JESSY Administration Sodium Chloride 2 ml 06/27/18 09:00 06/30/18 09:31 Ns Flush IV.FLUSH Not Given BID JESSY Sodium Chloride 2 ml 06/26/18 22:17 06/27/18 22:10 Ns Flush IV.FLUSH 2 ml PRN PRN Administration FLUSH AFTER USING IV ACCESS Objective Remarks: GENERAL: Well-nourished, well-developed patient. SKIN: Warm and dry. HEAD: Normocephalic. EYES: No scleral icterus. No injection or drainage. NECK: Supple, trachea midline. No JVD or lymphadenopathy. LYMPHATIC: No adenopathy. CARDIOVASCULAR: Regular rate and rhythm without murmurs. RESPIRATORY: Breath sounds equal bilaterally. No accessory muscle use. GASTROINTESTINAL: Abdomen soft, non-tender, nondistended. EXTREMITIES: No cyanosis, or edema. MUSCULOSKELETAL: Adequate muscle tone. NEUROLOGICAL: No obvious focal deficit. Awake, alert, and oriented x3. PSYCHIATRIC: Appropriate mood and affect; insight and judgment normal. 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 She is on Jadenu and Hydrea on an outpatient basis. 1. Reviewed chest x-ray that showed bilateral infiltrates with a small left effusion. The patient does report she felt like she had an upper respiratory infection prior to coming into the hospital. When looking at her vital signs her T-max was 101.9 yesterday morning. I am placing her on Levaquin 750 mg IV once daily. 2. Patient denies any shortness of breath at present. Continue to monitor O2 saturations and any sign of acute chest syndrome. 3. Blood cultures x2 for temperature greater than 100.6. Continue supportive care. - Attending Statement The exam, history, and the medical decision-making described in the above note were completed with the assistance of the mid-level provider. I reviewed and agree with the findings presented. I attest that I had a [id number] encounter with the patient on the same day, and personally performed and documented my assessment and findings in the medical record. Patient states that her pain is better Sore throat has improved Grandmother is at bedside who stated yesterday and last night she was feeling much better Continue present narcotics and antibiotic Monitor CBC We will follow
[2018-06-30 18:05] LABS: Bacteria,Urine Rare /hpf; Bilirubin,Urine Negative (Negative); Clarity,Urine Clear (Clear); Color,Urine Yellow (Yellw/Straw); Glucose,Urine (UA) Negative (Negative); Leukocyte Esterase,Urine Trace (Negative); Mucus,Urine Few /lpf (Occasional); Nitrite,Urine Negative (Negative); Specific Gravity,Urine 1.009 (1.002-1.035); Squamous Epithelial Cell,Urine 1 /hpf (0-5)
[2018-07-01] MEDS: HYDROmorphone PF Inj 2 MG/ML Vial IV.PUSH PRN ×6 (01:45→20:51)
[2018-07-01] MEDS: Sod Chloride 0.9% Inj 1,000 ML IV.CONT SCH ×2 (01:47→14:03)
[2018-07-01 06:09] LABS: Baso # (Auto) 0.1 th/mm3 (0.0-0.2); Baso % (Auto) 0.3 % (0.0-2.0); Eos # (Auto) 0.2 th/mm3 (0.0-0.4); Hemoglobin 7.1 gm/dL (11.6-15.3); Lymph # (Auto) 1.8 th/mm3 (1.0-4.8); Lymph % (Auto) 9.7 % (9.0-44.0); Mean Corpuscular HGB Conc 35.6 % (32.0-36.0); Mean Corpuscular Hemoglobin 33.1 pg (27.0-34.0); Mean Corpuscular Volume 92.9 fL (80.0-100.0); Mean Platelet Volume 7.7 fL (7.0-11.0); Mono # (Auto) 1.3 th/mm3 (0.0-0.9); Neut # (Auto) 14.9 th/mm3 (1.8-7.7); Platelet Count 253 th/mm3 (150-450); Red Blood Count 2.14 mil/mm3 (4.00-5.30); Red Cell Distribution Width 20.4 % (11.6-17.2); White Blood Count 18.2 th/mm3 (4.0-11.0)
[2018-07-01 06:31] LABS: Hematocrit 19.9 % (35.0-46.0)
[2018-07-01 06:36] LABS: Alanine Aminotransferase 35 U/L (10-53); Albumin 2.6 g/dL (3.4-5.0); Anion Gap 7 meq/L (5-15); Aspartate Aminotransferase 54 U/L (15-37); Blood Urea Nitrogen 4 mg/dL (7-18); Carbon Dioxide 28.3 meq/L (21.0-32.0); Chloride 105 meq/L (98-107); Glomerular Filtration Rate Greater Than 89 mL/min (>89); Glucose,Random 110 mg/dL (74-106); Potassium 3.7 meq/L (3.5-5.1); Sodium 140 meq/L (136-145)
[2018-07-01 06:38] LABS: Alkaline Phosphatase 146 U/L (45-117); Lactate Dehydrogenase 826 U/L (84-246); Total Protein 6.4 g/dL (6.4-8.2)
[2018-07-01 08:26] LABS: Lymphocytes 11 % (9-44); Monocytes 8 % (0-8); Tallied Nucleated RBC 71 (0-0)
[2018-07-01 08:27] LABS: Basophilic Stippling Moderate; Sickle Cells 1+; Target Cells 1+
[2018-07-01 08:28] LABS: Howell-Jolly Bodies Present; Pappenheimer Bodies Present; Platelet Estimate Normal (Normal); Platelet Morphology Normal (Normal)
--- NOTE | 2018-07-01 09:03 | P.PNONC ---
Subjective Interval history: Afebrile. Patient lying in bed resting, no acute distress. She reports pain in her hips and thighs. Denies chest pain or shortness of breath. She is currently due for her pain medications. Her grandmother reports that she started vomiting again yesterday evening. This was relieved with medications. Objective Vital Signs/Intake & Output: Vital Signs 06/30/18 12:00 06/30/18 15:43 06/30/18 16:20 Temperature 98.2 F 98.3 F Pulse Rate 91 H 75 98 H Respiratory Rate 18 18 18 Blood Pressure 123/72 128/69 Pulse Oximetry 99 98 06/30/18 20:00 06/30/18 21:39 06/30/18 23:52 Temperature 99.4 F Pulse Rate 103 H 104 H Respiratory Rate 20 24 18 Blood Pressure 122/65 Pulse Oximetry 100 99 07/01/18 00:47 07/01/18 02:13 07/01/18 03:52 Temperature 99.0 F Pulse Rate 101 H 112 H Respiratory Rate 18 18 18 Blood Pressure 128/72 Pulse Oximetry 96 07/01/18 04:57 07/01/18 08:00 Temperature 98.8 F 99.5 F Pulse Rate 120 H 104 H Respiratory Rate 20 20 Blood Pressure 111/59 L 104/55 L Pulse Oximetry 97 94 L Intake & Output 06/30/18 07/01/18 07/01/18 18:59 06:59 18:59 Intake Total 1150 / 1150 1000 / 1000 Balance 1150 / 1150 1000 / 1000 Weight 55.7 kg Intake: IV 1150 / 1150 1000 / 1000 NS Inj 1,000 ML @ 100 mls/hr IV 1000 / 1000 1000 / 1000 .CONT .Q10H [facility] Rx#:[id number] Levaquin 750 mg Premix Inj 150 150 / 150 ML @ 100 mls/hr IV.SIG Q24H [facility] Rx#:[id number] Other: # Voids 4 6 Date of Last Bowel Movement 06/27/18 Result Diagrams: 07/01/18 05:13 07/01/18 05:13 Laboratory Results: Laboratory Results - last 24 hr 06/30/18 06/30/18 07/01/18 10:35 17:25 05:13 WBC 18.2 H 18.2 H RBC 2.21 L 2.14 L Hgb 7.2 L 7.1 L Hct 20.4 L* 19.9 L* MCV 92.2 92.9 MCH 32.6 33.1 MCHC 35.3 35.6 RDW 20.9 H 20.4 H Plt Count 274 253 MPV 7.8 7.7 Prelim Diff (Auto) Slide review pending Slide review pending Neut % (Auto) 85.2 H 82.0 H Lymph % (Auto) 3.9 L 9.7 [place] % (Auto) 9.4 H 7.0 Eos % (Auto) 1.2 1.0 Baso % (Auto) 0.3 0.3 Neut # (Auto) 15.5 H 14.9 H Lymph # (Auto) 0.7 L 1.8 [place] # (Auto) 1.7 H 1.3 H Eos # (Auto) 0.2 0.2 Baso # (Auto) 0.1 0.1 WBC Differential Manual diff final Manual diff final Seg Neuts % (Manual) 82 H 79 H Band Neuts % (Manual) 2 Lymphocytes % (Manual) 6 L 11 Monocytes % (Manual) 9 H 8 Eosinophils % (Manual) 3 Abs Neuts (Manual) 14.9 H 14.7 H Nucleated RBCs/100 WBC 75 H 71 H Differential Comment . . Platelet Estimate Normal Normal Platelet Morphology Normal Normal Polychromasia 2.1 H Basophilic Stippling Moderate H Moderate H Pappenheimer Bodies Present H Present H Sickle Cells 1+ H 1+ H Target Cells 1+ H 1+ H [place] Bodies Present H Present H Keratocytes Occ H Occ H Sodium Potassium Chloride Carbon Dioxide Anion Gap BUN Creatinine Estimated GFR Random Glucose Calcium Total Bilirubin AST ALT Alkaline Phosphatase Lactate Dehydrogenase Total Protein Albumin Urine Color Yellow Urine Clarity Clear Urine pH 7.0 Ur Specific [place] 1.009 Urine Protein Negative Urine Glucose (UA) Negative Urine Ketones Negative Urine Occult Blood Small H Urine Nitrate Negative Urine Bilirubin Negative Urine Urobilinogen Less than 2 Ur Leukocyte Esterase Trace H Urine RBC Less than 1 Urine WBC 1 Ur Squamous Epith Cells 1 Urine Bacteria Rare H Urine Mucus Few H Micro UA Comment Culture not ind Ur Microscopic Review Not Reportable Urine Culture Comments Culture not ind 07/01/18 05:13 WBC RBC Hgb Hct MCV MCH MCHC RDW Plt Count MPV Prelim Diff (Auto) Neut % (Auto) Lymph % (Auto) [place] % (Auto) Eos % (Auto) Baso % (Auto) Neut # (Auto) Lymph # (Auto) [place] # (Auto) Eos # (Auto) Baso # (Auto) WBC Differential Seg Neuts % (Manual) Band Neuts % (Manual) Lymphocytes % (Manual) Monocytes % (Manual) Eosinophils % (Manual) Abs Neuts (Manual) Nucleated RBCs/100 WBC Differential Comment Platelet Estimate Platelet Morphology Polychromasia Basophilic Stippling Pappenheimer Bodies Sickle Cells Target Cells [place] Bodies Keratocytes Sodium 140 Potassium 3.7 Chloride 105 Carbon Dioxide 28.3 Anion Gap 7 BUN 4 L Creatinine 0.47 L Estimated GFR Greater than 89 Random Glucose 110 H Calcium 8.0 L Total Bilirubin 1.5 H AST 54 H ALT 35 Alkaline Phosphatase 146 H Lactate Dehydrogenase 826 H Total Protein 6.4 D Albumin 2.6 L Urine Color Urine Clarity Urine pH Ur Specific [place] Urine Protein Urine Glucose (UA) Urine Ketones Urine Occult Blood Urine Nitrate Urine Bilirubin Urine Urobilinogen Ur Leukocyte Esterase Urine RBC Urine WBC Ur Squamous Epith Cells Urine Bacteria Urine Mucus Micro UA Comment Ur Microscopic Review Urine Culture Comments Medications: Active Medications Generic Name Dose Route Start Last Admin Trade Name Freq PRN Reason Stop Dose Admin Acetaminophen 650 mg 06/26/18 22:17 06/30/18 05:53 Tylenol PO 650 mg Q4H PRN Administration Temp > 100.4 Acetaminophen 650 mg 06/27/18 13:12 06/27/18 17:47 Tylenol PO 650 mg Q4H PRN Administration SEE LABEL COMMENTS Al Hydroxide/Mg Hydroxide 30 ml 06/26/18 22:17 06/29/18 22:38 Milk Of Magnesia Liq PO 30 ml Q12H PRN Administration Mild Constipation Albuterol 1 ampul 06/30/18 03:00 07/01/18 03:51 Duoneb Neb (Jessy) NEB 1 ampul Q6HR NEB JESSY Administration Aspirin 81 mg 06/27/18 12:15 06/30/18 08:33 Ecotrin PO 81 mg DAILY JESSY Administration Folic Acid 1 mg 06/27/18 12:15 06/30/18 08:34 Folic Acid PO 1 mg DAILY JESSY Administration Heparin Sodium (Porcine) 250 unit 06/27/18 22:49 06/29/18 05:40 Heparin Central Flush IV.FLUSH 250 unit PRN PRN Administration Flush Infusapot Hydromorphone HCl 3 mg 06/28/18 08:00 07/01/18 05:11 Dilaudid Pf Inj IV.PUSH 3 mg Q3H PRN Administration PAIN SCALE 1 TO 10 Hydroxyurea 2,000 mg 06/28/18 09:00 06/30/18 08:33 Hydrea PO 2,000 mg Q48H JESSY Administration Hydroxyurea 1,500 mg 06/29/18 09:00 06/29/18 09:45 Hydrea PO 1,500 mg Q48H JESSY Administration Sodium Chloride 1,000 mls @ 100 mls/hr 06/26/18 22:30 07/01/18 01:47 Ns Inj IV.CONT 100 mls/hr .Q10H JESSY Administration Levofloxacin/Dextrose 150 mls @ 100 mls/hr 06/29/18 17:00 06/30/18 18:50 Levaquin 750 Mg Premix Inj IV.SIG Infused Q24H JESSY Infusion Ondansetron HCl 4 mg 06/26/18 22:17 06/30/18 18:32 Zofran Inj IV.PUSH 4 mg Q6H PRN Administration NAUSEA OR VOMITING Senna/Docusate Sodium 1 tab 06/27/18 09:00 06/30/18 21:55 Maria Isabel-Colace PO 1 tab BID JESSY Administration Sodium Chloride 2 ml 06/27/18 09:00 06/30/18 21:55 Ns Flush IV.FLUSH 2 ml BID JESSY Administration Sodium Chloride 2 ml 06/26/18 22:17 06/27/18 22:10 Ns Flush IV.FLUSH 2 ml PRN PRN Administration FLUSH AFTER USING IV ACCESS Objective Remarks: GENERAL: Well-nourished, well-developed young female patient, no acute distress. SKIN: Warm and dry. HEAD: Normocephalic. EYES: No scleral icterus. No injection or drainage. NECK: Supple, trachea midline. CARDIOVASCULAR: +S1/S2 without murmurs. RESPIRATORY: ENT breath sounds clear, equal bilaterally. Nonlabored at rest. O2 via nasal cannula @2L GASTROINTESTINAL: Abdomen soft, non-tender, nondistended. EXTREMITIES: No cyanosis, or edema. MUSCULOSKELETAL: Adequate muscle tone. NEUROLOGICAL: No obvious focal deficit. Sleeping on approach, awakens easily to voice, alert, and oriented x3. PSYCHIATRIC: Appropriate mood and affect; insight and judgment normal. 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 She is on Jadenu and Hydrea on an outpatient basis. 1. Fevers, resolved. Chest x-ray revealed bilateral infiltrates, continue Levaquin. Blood cultures pending. 2. Sickle cell pain crisis, continue current pain meds. Continue hydration. 3. Continue supportive care. - Attending Statement The exam, history, and the medical decision-making described in the above note were completed with the assistance of the mid-level provider. I reviewed and agree with the findings presented. I attest that I had a [id number] encounter with the patient on the same day, and personally performed and documented my assessment and findings in the medical record. Patient is improving sore throat has resolved No more fever Grandmother claims that she is not eating or drinking much. Patient does agree with her grandma Continue present plan
[2018-07-01] MEDS: Hydroxyurea 500 MG Capsule PO SCH (09:10)
[2018-07-01] MEDS: Senna/Docusate Sodium 8.6/50 MG Tablet PO SCH ×2 (09:11→20:50)
[2018-07-01] MEDS: Folic Acid 1 MG Tablet PO SCH (09:11)
--- NOTE | 2018-07-01 11:33 | P.PNIM ---
Subjective Interval history: Patient is sitting in a chair. Still is having lower back and b/l hip pain. No other complaints. Physical Exam Vital signs: Vital Signs 06/30/18 12:00 06/30/18 15:43 06/30/18 16:20 Temperature 98.2 F 98.3 F Pulse Rate 91 H 75 98 H Respiratory Rate 18 18 18 Blood Pressure 123/72 128/69 Pulse Oximetry 99 98 06/30/18 20:00 06/30/18 21:39 06/30/18 23:52 Temperature 99.4 F Pulse Rate 103 H 104 H Respiratory Rate 20 24 18 Blood Pressure 122/65 Pulse Oximetry 100 99 07/01/18 00:47 07/01/18 02:13 07/01/18 03:52 Temperature 99.0 F Pulse Rate 101 H 112 H Respiratory Rate 18 18 18 Blood Pressure 128/72 Pulse Oximetry 96 07/01/18 04:57 07/01/18 08:00 07/01/18 09:39 Temperature 98.8 F 99.5 F Pulse Rate 120 H 104 H 101 H Respiratory Rate 20 20 16 Blood Pressure 111/59 L 104/55 L Pulse Oximetry 97 94 L 95 Intake & Output 06/30/18 07/01/18 07/01/18 18:59 06:59 18:59 Intake Total 1150 / 1150 1000 / 1000 240 / 240 Output Total 600 / 600 Balance 1150 / 1150 1000 / 1000 -360 / -360 Weight 55.7 kg Intake: IV 1150 / 1150 1000 / 1000 NS Inj 1,000 ML @ 100 mls/hr IV 1000 / 1000 1000 / 1000 .CONT .Q10H [facility] Rx#:[id number] Levaquin 750 mg Premix Inj 150 150 / 150 ML @ 100 mls/hr IV.SIG Q24H [facility] Rx#:[id number] Oral 240 / 240 Output: Urine 600 / 600 Other: # Voids 4 6 Date of Last Bowel Movement 06/27/18 Narrative: Patient is sitting upright in a chair Still complains of lower back and b/l hip pain. S1S2 Tachycardic Decrease breath sounds left lung base. No edema No focal neuro deficits. Results Labs CBC & Chem 7: 07/01/18 05:13 07/01/18 05:13 Labs: Microbiology 06/30/18 12:06 Blood - Peripheral Aerobic Blood Culture - Preliminary No growth in 1 day 06/30/18 12:06 Blood - Peripheral Anaerobic Blood Culture - Preliminary No growth in 1 day Assessment and Plan Plan This patient is a 23-year-old -[place] female with a diagnosis of sickle cell disease and asthma. The patient presented to the emergency department on 06/26/2018 due to a sickle cell pain crisis. 1. Acute sickle cell pain crisis Patient still having pain, tachycardic. Continue current pain medication regimen. Hemoglobin 7.1 as of today. No transfusion for now, hematology following. We will continue to monitor the patient's hemoglobin level and transfuse if her hemoglobin drops below 6. Continue IV fluids, continue folic acid, hydroxyurea, aspirin. Continue supplemental O2 LDH 826, slightly downtrending. 2. Probable pneumonia Patient's chest x-ray shows bilateral lower lobe infiltrates as well as a small left-sided pleural effusion. She has had 2 fevers over the past 24 hours. Blood cultures are negative. Continue Levaquin. Breathing treatments and supplemental oxygen as needed. On 2 L of supplemental oxygen 3. 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 Asthma Continue breathing treatments as needed. 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 Hematology following DVT prophylaxis, will start heparin for DVT prophylaxis. Progress Note: Quality VTE Deep Vein Thrombosis/Pulmonary Embolism Present on Admission: No
[2018-07-01] MEDS: Heparin - SQ 10,000 UNITS/ML Vial SQ SCH (20:50)
[2018-07-02] MEDS: HYDROmorphone PF Inj 2 MG/ML Vial IV.PUSH PRN ×6 (00:35→20:40)
[2018-07-02] MEDS: Sod Chloride 0.9% Inj 1,000 ML IV.CONT SCH ×4 (00:37→17:33)
[2018-07-02 07:19] LABS: Baso # (Auto) 0.1 th/mm3 (0.0-0.2); Eos # (Auto) 0.3 th/mm3 (0.0-0.4); Eos % (Auto) 2.3 % (0.0-4.0); Lymph # (Auto) 1.5 th/mm3 (1.0-4.8); Lymph % (Auto) 9.9 % (9.0-44.0); Mean Corpuscular HGB Conc 34.5 % (32.0-36.0); Mean Corpuscular Hemoglobin 32.2 pg (27.0-34.0); Mean Corpuscular Volume 93.4 fL (80.0-100.0); Mean Platelet Volume 7.5 fL (7.0-11.0); Mono # (Auto) 1.3 th/mm3 (0.0-0.9); Mono % (Auto) 8.6 % (0.0-8.0); Neut # (Auto) 11.9 th/mm3 (1.8-7.7); Neut % (Auto) 78.2 % (16.0-70.0); Platelet Count 256 th/mm3 (150-450); Red Blood Count 2.17 mil/mm3 (4.00-5.30); Red Cell Distribution Width 20.7 % (11.6-17.2); White Blood Count 15.2 th/mm3 (4.0-11.0)
[2018-07-02 07:36] LABS: Hematocrit 20.3 % (35.0-46.0)
[2018-07-02 08:33] LABS: Eosinophils 2 % (0-4); Lymphocytes 11 % (9-44); Monocytes 4 % (0-8); Platelet Estimate Normal (Normal); Platelet Morphology Normal (Normal); Tallied Nucleated RBC 29 (0-0)
[2018-07-02 08:34] LABS: Howell-Jolly Bodies Present; Sickle Cells 1+; Target Cells 1+
[2018-07-02 08:35] LABS: Polychromasia 2.9 % (0.0-1.9)
[2018-07-02 08:36] LABS: Pappenheimer Bodies Present
--- NOTE | 2018-07-02 09:13 | P.PNIM ---
Subjective Interval history: Patient still with c/o pain of B/L hips and lower back. Denies having a cough. No other complaints other than pain and poor appetite. Physical Exam Vital signs: Vital Signs 07/01/18 09:39 07/01/18 12:00 07/01/18 16:00 Temperature 98.3 F 98.2 F Pulse Rate 101 H 98 H 76 Respiratory Rate 16 20 18 Blood Pressure 115/62 116/59 L Pulse Oximetry 95 98 99 07/01/18 16:58 07/01/18 20:00 07/01/18 20:50 Temperature 98.7 F Pulse Rate 70 98 H 91 H Respiratory Rate 16 20 15 Blood Pressure 122/61 Pulse Oximetry 96 97 07/02/18 00:00 07/02/18 02:20 07/02/18 03:55 Temperature 98.8 F Pulse Rate 97 H 97 H Respiratory Rate 20 18 16 Blood Pressure 118/65 Pulse Oximetry 96 07/02/18 04:00 07/02/18 07:00 Temperature 98.8 F 98.6 F Pulse Rate 98 H 95 H Respiratory Rate 20 18 Blood Pressure 119/57 L 116/60 Pulse Oximetry 97 100 Intake & Output 07/01/18 07/02/18 07/02/18 18:59 06:59 18:59 Intake Total 2110 / 2110 1000 / 1000 Output Total 600 / 600 Balance 1510 / 1510 1000 / 1000 Weight 54.3 kg Intake: IV 1150 / 1150 1000 / 1000 NS Inj 1,000 ML @ 100 mls/hr IV 1000 / 1000 1000 / 1000 .CONT .Q10H [facility] Rx#:[id number] Levaquin 750 mg Premix Inj 150 150 / 150 ML @ 100 mls/hr IV.SIG Q24H [facility] Rx#:[id number] Oral 960 / 960 Output: Urine 600 / 600 Other: # Voids 2 4 # Incontinent Voids 1 Narrative: Patient is sitting upright in a chair Still complains of lower back and b/l hip pain. S1S2 Tachycardic Decrease breath sounds left lung base. No edema No focal neuro deficits. Results Labs CBC & Chem 7: 07/02/18 07:02 07/01/18 05:13 Labs: Microbiology 06/30/18 12:06 Blood - Peripheral Aerobic Blood Culture - Preliminary No growth in 1 day 06/30/18 12:06 Blood - Peripheral Anaerobic Blood Culture - Preliminary No growth in 1 day Assessment and Plan Plan This patient is a 23-year-old -[place] female with a diagnosis of sickle cell disease and asthma. The patient presented to the emergency department on 06/26/2018 due to a sickle cell pain crisis. 1. Acute sickle cell pain crisis Patient still having pain, tachycardic. Continue current pain medication regimen. Hemoglobin 7.0 as of today. No transfusion for now, hematology following. We will continue to monitor the patient's hemoglobin level and transfuse if her hemoglobin drops below 6. Continue IV fluids, continue folic acid, hydroxyurea, aspirin. Continue supplemental O2 LDH 826 yesterday, slightly downtrending. Follow up am LDH, labs. 2. Sepsis 06/16 [facility] Patient's chest x-ray shows bilateral lower lobe infiltrates as well as a small left-sided pleural effusion. Patient presented with fevers and elevated wbc count. Blood cxs are negative. Now afebrile over 24 hrs. Continue Levaquin. Breathing treatments and supplemental oxygen as needed. On 2 L of supplemental oxygen 3. 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 Asthma Continue breathing treatments as needed. 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 Hematology following DVT prophylaxis, will start heparin for DVT prophylaxis. Discharge planning: I expect the patient's symptoms to improve over the next 48 hrs, continue current management. Progress Note: Quality VTE Deep Vein Thrombosis/Pulmonary Embolism Present on Admission: No
[2018-07-02] MEDS: Hydroxyurea 500 MG Capsule PO SCH (09:47)
[2018-07-02] MEDS: Senna/Docusate Sodium 8.6/50 MG Tablet PO SCH ×2 (09:49→20:53)
[2018-07-02] MEDS: Folic Acid 1 MG Tablet PO SCH (09:49)
[2018-07-02] MEDS: Heparin - SQ 10,000 UNITS/ML Vial SQ SCH ×2 (09:49→20:53)
--- NOTE | 2018-07-02 12:53 | P.PNONC ---
Subjective Interval history: Afebrile. Patient reports she is feeling better. Discussed tapering the Dilaudid. Will start oral pain medication and use Dilaudid for breakthrough. Patient denies any shortness of breath or chest pain. Reports the pain she is having is still on her back and thighs. Objective Vital Signs/Intake & Output: Vital Signs 07/01/18 16:00 07/01/18 16:58 07/01/18 20:00 Temperature 98.2 F 98.7 F Pulse Rate 76 70 98 H Respiratory Rate 18 16 20 Blood Pressure 116/59 L 122/61 Pulse Oximetry 99 96 07/01/18 20:50 07/02/18 00:00 07/02/18 02:20 Temperature 98.8 F Pulse Rate 91 H 97 H Respiratory Rate 15 20 18 Blood Pressure 118/65 Pulse Oximetry 97 96 07/02/18 03:55 07/02/18 04:00 07/02/18 07:00 Temperature 98.8 F 98.6 F Pulse Rate 97 H 98 H 95 H Respiratory Rate 16 20 18 Blood Pressure 119/57 L 116/60 Pulse Oximetry 97 100 07/02/18 08:00 07/02/18 10:24 07/02/18 11:30 Temperature 98.5 F Pulse Rate 95 H 103 H Respiratory Rate 17 20 18 Blood Pressure 102/60 Pulse Oximetry 100 Intake & Output 07/01/18 07/02/18 07/02/18 18:59 06:59 18:59 Intake Total 2110 / 2110 1000 / 1000 1000 / 1000 Output Total 600 / 600 Balance 1510 / 1510 1000 / 1000 1000 / 1000 Weight 54.3 kg Intake: IV 1150 / 1150 1000 / 1000 1000 / 1000 NS Inj 1,000 ML @ 100 mls/hr IV 1000 / 1000 1000 / 1000 1000 / 1000 .CONT .Q10H JESSY Rx#:[id number] Levaquin 750 mg Premix Inj 150 150 / 150 ML @ 100 mls/hr IV.SIG Q24H JESSY Rx#:[id number] Oral 960 / 960 Output: Urine 600 / 600 Other: # Voids 2 4 # Incontinent Voids 1 Result Diagrams: 07/02/18 07:02 07/01/18 05:13 Laboratory Results: Laboratory Results - last 24 hr 07/02/18 07:02 WBC 15.2 H RBC 2.17 L Hgb 7.0 L Hct 20.3 L* MCV 93.4 MCH 32.2 MCHC 34.5 RDW 20.7 H Plt Count 256 MPV 7.5 Prelim Diff (Auto) Slide review pending Neut % (Auto) 78.2 H Lymph % (Auto) 9.9 [place] % (Auto) 8.6 H Eos % (Auto) 2.3 Baso % (Auto) 1.0 Neut # (Auto) 11.9 H Lymph # (Auto) 1.5 [place] # (Auto) 1.3 H Eos # (Auto) 0.3 Baso # (Auto) 0.1 WBC Differential Manual diff final Seg Neuts % (Manual) 80 H Band Neuts % (Manual) 3 Lymphocytes % (Manual) 11 Monocytes % (Manual) 4 Eosinophils % (Manual) 2 Abs Neuts (Manual) 12.6 H Nucleated RBCs/100 WBC 29 H Differential Comment . Platelet Estimate Normal Platelet Morphology Normal Polychromasia 2.9 H Basophilic Stippling Faint H Pappenheimer Bodies Present H Sickle Cells 1+ H Target Cells 1+ H Sarah-[place] Bodies Present H Culture Results: Microbiology 06/30/18 12:06 Aerobic Blood Culture - Preliminary Blood - Peripheral No growth in 2 days Anaerobic Blood Culture - Preliminary No growth in 2 days Medications: Active Medications Generic Name Dose Route Start Last Admin Trade Name Freq PRN Reason Stop Dose Admin Acetaminophen 650 mg 06/26/18 22:17 06/30/18 05:53 Tylenol PO 650 mg Q4H PRN Administration Temp > 100.4 Acetaminophen 650 mg 06/27/18 13:12 06/27/18 17:47 Tylenol PO 650 mg Q4H PRN Administration SEE LABEL COMMENTS Al Hydroxide/Mg Hydroxide 30 ml 06/26/18 22:17 06/29/18 22:38 Milk Of Magnesia Liq PO 30 ml Q12H PRN Administration Mild Constipation Albuterol 1 ampul 06/30/18 03:00 07/02/18 10:22 Duoneb Neb (Jessy) NEB 1 ampul Q6HR NEB JESSY Administration Aspirin 81 mg 06/27/18 12:15 07/02/18 09:49 Ecotrin PO 81 mg DAILY JESSY Administration Folic Acid 1 mg 06/27/18 12:15 07/02/18 09:49 Folic Acid PO 1 mg DAILY JESSY Administration Heparin Sodium (Porcine) 250 unit 06/27/18 22:49 06/29/18 05:40 Heparin Central Flush IV.FLUSH 250 unit PRN PRN Administration Flush Infusapot Heparin Sodium (Porcine) 5,000 units 07/01/18 21:00 07/02/18 09:49 Heparin Inj SQ 5,000 units Q12HR JESSY Administration Hydromorphone HCl 3 mg 06/28/18 08:00 07/02/18 09:50 Dilaudid Pf Inj IV.PUSH 3 mg Q3H PRN Administration PAIN SCALE 1 TO 10 Hydroxyurea 2,000 mg 06/28/18 09:00 07/02/18 09:47 Hydrea PO 2,000 mg Q48H JESSY Administration Hydroxyurea 1,500 mg 06/29/18 09:00 07/01/18 09:10 Hydrea PO 1,500 mg Q48H JESSY Administration Sodium Chloride 1,000 mls @ 100 mls/hr 06/26/18 22:30 07/02/18 10:44 Ns Inj IV.CONT 100 mls/hr .Q10H JESSY Administration Levofloxacin/Dextrose 150 mls @ 100 mls/hr 06/29/18 17:00 07/01/18 18:00 Levaquin 750 Mg Premix Inj IV.SIG Infused Q24H JESSY Infusion Ondansetron HCl 4 mg 06/26/18 22:17 06/30/18 18:32 Zofran Inj IV.PUSH 4 mg Q6H PRN Administration NAUSEA OR VOMITING Senna/Docusate Sodium 1 tab 06/27/18 09:00 07/02/18 09:49 Maria Isabel-Colace PO 1 tab BID JESSY Administration Sodium Chloride 2 ml 06/27/18 09:00 07/02/18 09:50 Ns Flush IV.FLUSH Not Given BID JESSY Sodium Chloride 2 ml 06/26/18 22:17 06/27/18 22:10 Ns Flush IV.FLUSH 2 ml PRN PRN Administration FLUSH AFTER USING IV ACCESS Objective Remarks: GENERAL: Well-nourished, well-developed young female patient, no acute distress. SKIN: Warm and dry. HEAD: Normocephalic. EYES: No scleral icterus. No injection or drainage. NECK: Supple, trachea midline. CARDIOVASCULAR: +S1/S2 without murmurs. RESPIRATORY: ENT breath sounds clear, equal bilaterally. Nonlabored at rest. GASTROINTESTINAL: Abdomen soft, non-tender, nondistended. EXTREMITIES: No cyanosis, or edema. MUSCULOSKELETAL: Adequate muscle tone. NEUROLOGICAL: No obvious focal deficit. Awake, alert and oriented x3. PSYCHIATRIC: Appropriate mood and affect; insight and judgment normal. 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 She is on Jadenu and Hydrea on an outpatient basis. 1. Fevers, resolved. Chest x-ray revealed bilateral infiltrates, continue Levaquin. Blood cultures with no growth times 2 days. 2. Sickle cell pain crisis, will start hydrocodone and change Dilaudid to breakthrough pain of 7-10 every 4 hours. 3. Continue to monitor for sedation. - Attending Statement The exam, history, and the medical decision-making described in the above note were completed with the assistance of the mid-level provider. I reviewed and agree with the findings presented. I attest that I had a [id number] encounter with the patient on the same day, and personally performed and documented my assessment and findings in the medical record. Patient states that her pain is improving. She is start eating a bit better. Her grandma agree with her Switch IV Dilaudid to oral Continue present treatment plan otherwise
[2018-07-03] MEDS: HYDROmorphone PF Inj 2 MG/ML Vial IV.PUSH PRN (00:15)
[2018-07-03 07:08] LABS: Baso % (Auto) 0.3 % (0.0-2.0); Eos # (Auto) 0.2 th/mm3 (0.0-0.4); Eos % (Auto) 1.3 % (0.0-4.0); Lymph # (Auto) 1.2 th/mm3 (1.0-4.8); Lymph % (Auto) 8.5 % (9.0-44.0); Mean Corpuscular HGB Conc 34.6 % (32.0-36.0); Mean Corpuscular Hemoglobin 32.8 pg (27.0-34.0); Mean Corpuscular Volume 94.8 fL (80.0-100.0); Mean Platelet Volume 7.8 fL (7.0-11.0); Mono # (Auto) 1.4 th/mm3 (0.0-0.9); Mono % (Auto) 9.5 % (0.0-8.0); Neut # (Auto) 11.8 th/mm3 (1.8-7.7); Neut % (Auto) 80.4 % (16.0-70.0); Platelet Count 305 th/mm3 (150-450); Red Blood Count 2.19 mil/mm3 (4.00-5.30); Red Cell Distribution Width 20.6 % (11.6-17.2); White Blood Count 14.7 th/mm3 (4.0-11.0)
[2018-07-03 07:30] LABS: Hematocrit 20.7 % (35.0-46.0); Hemoglobin 7.2 gm/dL (11.6-15.3)
[2018-07-03 07:44] LABS: Anion Gap 7 meq/L (5-15); Blood Urea Nitrogen 5 mg/dL (7-18); Calcium 8.6 mg/dL (8.5-10.1); Carbon Dioxide 29.8 meq/L (21.0-32.0); Chloride 100 meq/L (98-107); Glomerular Filtration Rate Greater Than 89 mL/min (>89); Glucose,Random 95 mg/dL (74-106); Potassium 3.8 meq/L (3.5-5.1); Sodium 137 meq/L (136-145)
[2018-07-03 07:45] LABS: Lactate Dehydrogenase 614 U/L (84-246)
[2018-07-03 08:13] LABS: Howell-Jolly Bodies Present; Lymphocytes 9 % (9-44); Monocytes 6 % (0-8); Tallied Nucleated RBC 33 (0-0)
[2018-07-03 08:14] LABS: Target Cells 1+
[2018-07-03 08:15] LABS: Sickle Cells 1+
[2018-07-03 08:16] LABS: Pappenheimer Bodies Present; Platelet Estimate Normal (Normal); Platelet Morphology Normal (Normal)
[2018-07-03] MEDS: Folic Acid 1 MG Tablet PO SCH (08:29)
[2018-07-03] MEDS: Heparin - SQ 10,000 UNITS/ML Vial SQ SCH ×2 (08:29→20:10)
[2018-07-03] MEDS: Senna/Docusate Sodium 8.6/50 MG Tablet PO SCH ×2 (08:29→20:40)
[2018-07-03] MEDS: Sod Chloride 0.9% Inj 1,000 ML IV.CONT SCH ×3 (08:30→20:39)
[2018-07-03] MEDS: Hydroxyurea 500 MG Capsule PO SCH (08:45)
--- NOTE | 2018-07-03 13:40 | P.PNIM ---
Subjective Interval history: Patient seen and examined this morning at the bedside says her pain is 7/10 and yesterday was 8-9/10 and baseline is 5/10 some pain diffusely tolerating new pain regimen and willing to give it a try grandmother present at bedside Physical Exam Vital signs: Vital Signs 07/02/18 15:30 07/02/18 16:53 07/02/18 20:20 Temperature 98.5 F 98.7 F Pulse Rate 85 90 94 H Respiratory Rate 20 20 16 Blood Pressure 105/68 128/70 Pulse Oximetry 100 95 07/02/18 21:15 07/03/18 00:40 07/03/18 04:50 Temperature 99.8 F H 98.7 F Pulse Rate 85 103 H 108 H Respiratory Rate 20 17 19 Blood Pressure 113/57 L 115/58 L Pulse Oximetry 96 92 L 98 07/03/18 07:30 07/03/18 08:28 07/03/18 12:00 Temperature 99.2 F 98.9 F Pulse Rate 98 H 110 H 98 H Respiratory Rate 18 17 20 Blood Pressure 114/57 L 122/58 L Pulse Oximetry 100 92 L 99 Intake & Output 07/02/18 07/03/18 07/03/18 18:59 06:59 18:59 Intake Total 1150 / 1150 1000 / 1000 Balance 1150 / 1150 1000 / 1000 Weight 52.7 kg Intake: IV 1150 / 1150 1000 / 1000 NS Inj 1,000 ML @ 100 mls/hr IV 1000 / 1000 1000 / 1000 .CONT .Q10H [facility] Rx#:[id number] Levaquin 750 mg Premix Inj 150 150 / 150 ML @ 100 mls/hr IV.SIG Q24H [facility] Rx#:[id number] Other: # Voids 6 2 Date of Last Bowel Movement 07/03/18 07/03/18 # Bowel Movements 3 # Incontinent Bowel Movements 2 gen: nad heent: no scleral icterus cvs: s1/s2 resp: mildly reduced breathsound on right lower lobe, no intercostal muscle use gi: soft, non tender, non distended, + bowel sound neuro: no focal findings grossly. cn 2-12 grossly intact Results Labs CBC & Chem 7: 07/03/18 06:40 07/03/18 06:40 Labs: Microbiology 06/30/18 12:06 Blood - Peripheral Aerobic Blood Culture - Preliminary No growth in 3 days 06/30/18 12:06 Blood - Peripheral Anaerobic Blood Culture - Preliminary No growth in 3 days Assessment and Plan Plan This patient is a 23-year-old -[place] female with longstanding history of SSA presenting with new onset pain crisis in setting of bilateral lung infiltrates concerning for new pneumonia. 1. Acute sickle cell pain crisis Continue current pain medication regimen. hydrocodone 5/325mg q6hrs and dilaudid 3mg IV q4hrs prn breakthrough only transfuse if her hemoglobin drops below 6. Continue IV fluids, continue folic acid, hydroxyurea, aspirin. Continue supplemental O2 LDH levels trending downwards. 2. Sepsis 2/ CAPNA Patient's chest x-ray shows bilateral lower lobe infiltrates as well as a small left-sided pleural effusion. Patient presented with fevers and elevated wbc count. Blood cxs are negative. levaquin 750mg qD x 5 days min Breathing treatments and supplemental oxygen as needed. 3. 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 Asthma Continue breathing treatments as needed. 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 Hematology following DVT prophylaxis, will start heparin for DVT prophylaxis. Discharge planning: I expect the patient's symptoms to improve over the next 48 hrs, continue current management and consider d/c when back to baseline functional status code: fc Progress Note: Quality VTE Deep Vein Thrombosis/Pulmonary Embolism Present on Admission: No
--- NOTE | 2018-07-03 15:00 | P.PNONC ---
Subjective Interval history: Patient up in recliner lying on her left side, in no acute distress. Grandmother at bedside. Patient denies any chest pain or shortness of breath. Reports that she is feeling much better, grandmother reports that patient has improved since switching to the oral pain medication. Objective Vital Signs/Intake & Output: Vital Signs 07/02/18 15:30 07/02/18 16:53 07/02/18 20:20 Temperature 98.5 F 98.7 F Pulse Rate 85 90 94 H Respiratory Rate 20 20 16 Blood Pressure 105/68 128/70 Pulse Oximetry 100 95 07/02/18 21:15 07/03/18 00:40 07/03/18 04:50 Temperature 99.8 F H 98.7 F Pulse Rate 85 103 H 108 H Respiratory Rate 20 17 19 Blood Pressure 113/57 L 115/58 L Pulse Oximetry 96 92 L 98 07/03/18 07:30 07/03/18 08:28 07/03/18 12:00 Temperature 99.2 F 98.9 F Pulse Rate 98 H 110 H 98 H Respiratory Rate 18 17 20 Blood Pressure 114/57 L 122/58 L Pulse Oximetry 100 92 L 99 Intake & Output 07/02/18 07/03/18 07/03/18 18:59 06:59 18:59 Intake Total 1150 / 1150 1000 / 1000 Balance 1150 / 1150 1000 / 1000 Weight 52.7 kg Intake: IV 1150 / 1150 1000 / 1000 NS Inj 1,000 ML @ 100 mls/hr IV 1000 / 1000 1000 / 1000 .CONT .Q10H JESSY Rx#:[id number] Levaquin 750 mg Premix Inj 150 150 / 150 ML @ 100 mls/hr IV.SIG Q24H JESSY Rx#:[id number] Other: # Voids 6 2 Date of Last Bowel Movement 07/03/18 07/03/18 # Bowel Movements 3 # Incontinent Bowel Movements 2 Result Diagrams: 07/03/18 06:40 07/03/18 06:40 Laboratory Results: Laboratory Results - last 24 hr 07/03/18 07/03/18 06:40 06:40 WBC 14.7 H RBC 2.19 L Hgb 7.2 L Hct 20.7 L* MCV 94.8 MCH 32.8 MCHC 34.6 RDW 20.6 H Plt Count 305 MPV 7.8 Prelim Diff (Auto) Slide review pending Neut % (Auto) 80.4 H Lymph % (Auto) 8.5 L [place] % (Auto) 9.5 H Eos % (Auto) 1.3 Baso % (Auto) 0.3 Neut # (Auto) 11.8 H Lymph # (Auto) 1.2 [place] # (Auto) 1.4 H Eos # (Auto) 0.2 Baso # (Auto) 0.0 WBC Differential Manual diff final Seg Neuts % (Manual) 82 H Band Neuts % (Manual) 3 Lymphocytes % (Manual) 9 Monocytes % (Manual) 6 Abs Neuts (Manual) 12.5 H Nucleated RBCs/100 WBC 33 H Differential Comment . Platelet Estimate Normal Platelet Morphology Normal Basophilic Stippling Faint H Pappenheimer Bodies Present H Sickle Cells 1+ H Target Cells 1+ H Sarah-[place] Bodies Present H Sodium 137 Potassium 3.8 Chloride 100 Carbon Dioxide 29.8 Anion Gap 7 BUN 5 L Creatinine 0.43 L Estimated GFR Greater than 89 Random Glucose 95 Calcium 8.6 Magnesium 2.0 Lactate Dehydrogenase 614 H Culture Results: Microbiology 06/30/18 12:06 Aerobic Blood Culture - Preliminary Blood - Peripheral No growth in 3 days Anaerobic Blood Culture - Preliminary No growth in 3 days Medications: Active Medications Generic Name Dose Route Start Last Admin Trade Name Freq PRN Reason Stop Dose Admin Acetaminophen 650 mg 06/26/18 22:17 06/30/18 05:53 Tylenol PO 650 mg Q4H PRN Administration Temp > 100.4 Acetaminophen 650 mg 06/27/18 13:12 06/27/18 17:47 Tylenol PO 650 mg Q4H PRN Administration SEE LABEL COMMENTS Hydrocodone Bitart/Acetaminophen 1 tab 07/02/18 14:00 07/03/18 08:30 [place] 5/325 PO 1 tab Q6H JESSY Administration Al Hydroxide/Mg Hydroxide 30 ml 06/26/18 22:17 07/02/18 20:52 Milk Of Magnesia Liq PO 30 ml Q12H PRN Administration Mild Constipation Albuterol 1 ampul 06/30/18 03:00 07/03/18 08:27 Duoneb Neb (Jessy) NEB 1 ampul Q6HR NEB JESSY Administration Aspirin 81 mg 06/27/18 12:15 07/03/18 08:29 Ecotrin PO 81 mg DAILY JESSY Administration Folic Acid 1 mg 06/27/18 12:15 07/03/18 08:29 Folic Acid PO 1 mg DAILY JESSY Administration Heparin Sodium (Porcine) 250 unit 06/27/18 22:49 06/29/18 05:40 Heparin Central Flush IV.FLUSH 250 unit PRN PRN Administration Flush Infusapot Heparin Sodium (Porcine) 5,000 units 07/01/18 21:00 07/03/18 08:29 Heparin Inj SQ 5,000 units Q12HR JESSY Administration Hydromorphone HCl 3 mg 07/02/18 12:56 07/03/18 00:15 Dilaudid Pf Inj IV.PUSH 3 mg Q4H PRN Administration Breakthrough pain 7-10 Hydroxyurea 2,000 mg 06/28/18 09:00 07/02/18 09:47 Hydrea PO 2,000 mg Q48H JESSY Administration Hydroxyurea 1,500 mg 06/29/18 09:00 07/03/18 08:45 Hydrea PO 1,500 mg Q48H JESSY Administration Sodium Chloride 1,000 mls @ 100 mls/hr 06/26/18 22:30 07/03/18 08:30 Ns Inj IV.CONT 100 mls/hr .Q10H JESSY Administration Levofloxacin/Dextrose 150 mls @ 100 mls/hr 06/29/18 17:00 07/02/18 17:33 Levaquin 750 Mg Premix Inj IV.SIG Infused Q24H JESSY Infusion Lactulose 30 ml 06/26/18 22:17 07/02/18 20:52 Lactulose Liq PO 30 ml DAILY PRN Administration SEVERE CONSITIPATION Ondansetron HCl 4 mg 06/26/18 22:17 06/30/18 18:32 Zofran Inj IV.PUSH 4 mg Q6H PRN Administration NAUSEA OR VOMITING Senna/Docusate Sodium 1 tab 06/27/18 09:00 07/03/18 08:29 Maria Isabel-Colace PO Not Given BID [facility] Sennosides 17.2 mg 06/26/18 22:17 07/02/18 20:53 Senokot PO 17.2 mg Q12H PRN Administration Moderate Constipation Sodium Chloride 2 ml 06/27/18 09:00 07/03/18 08:30 Ns Flush IV.FLUSH Not Given BID [facility] Sodium Chloride 2 ml 06/26/18 22:17 06/27/18 22:10 Ns Flush IV.FLUSH 2 ml PRN PRN Administration FLUSH AFTER USING IV ACCESS Objective Remarks: GENERAL: Well-nourished, well-developed young female patient, no acute distress. SKIN: Warm and dry. Port dressing to left chest dry and intact. HEAD: Normocephalic. EYES: No scleral icterus. No injection or drainage. NECK: Supple, trachea midline. CARDIOVASCULAR: Regular rate and rhythm without murmurs. RESPIRATORY: Posterior breath sounds clear, equal bilaterally. No accessory muscle use noted. GASTROINTESTINAL: Abdomen soft, non-tender, nondistended. EXTREMITIES: No cyanosis, or edema. MUSCULOSKELETAL: Adequate muscle tone. NEUROLOGICAL: No obvious focal deficit. Awake, alert and oriented x3. PSYCHIATRIC: Appropriate mood and affect; insight and judgment normal. 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 She is on Jadenu and Hydrea on an outpatient basis. 1. Fevers, resolved. Chest x-ray revealed bilateral infiltrates, continues on Levaquin. Blood cultures with no growth times 3 days. 2. Sickle cell pain crisis, improving. Will discontinue Dilaudid and start hydrocodone 5/325 for pain scale of 3-6 and hydrocodone 10/325 for a pain scale of 7-10. 3. Continue to monitor for sedation. 4. Patient improving, okay to discharge from a hematological standpoint once cleared by other providers. Patient should follow-up with her video game tester. - Attending Statement The exam, history, and the medical decision-making described in the above note were completed with the assistance of the mid-level provider. I reviewed and agree with the findings presented. I attest that I had a [id number] encounter with the patient on the same day, and personally performed and documented my assessment and findings in the medical record. Patient says that her pain is much better She thinks that she could go home Continue oral narcotics Discussed with patient and her grandmom
--- NOTE | 2018-07-03 19:17 | P.DS ---
DS: Providers Date of admission: 06/27/18 14:10 Primary care physician: UNKNOWN Consults: 06/27/18 16:02 Consult to Hematology Routine Consulting Provider: Aura Mcgregor Front End Mechanic:: Sona Mcgregor Reason for Consultation: sickle cell crisis Notified:: Office Spoke with:: BRODY Date Notified:: 06/27/18 Time Notified:: 16:08 Ordering Provider: RENATO DS: Summary Patient is a young 23 year old female with prior history of sickle cell anemia who presents with acute onset diffuse pain admitted for acute sickle cell pain episode. Patient was admitted where the following treatments and services were provided. Consultation was appreciated by hematology service and patient was started on IVF hydration, pain medication and presscribed antibiotics for CXR showing consolidation concerning for pneumonia as the precipitating issue. Patient during hospitalization with slow but progressive improvement and clinically stable for discharge with the following provisions for follow up care. Patient should complete additional 3 days levaquin antibiotics outpatient along with close follow up with hematology as outpatient. Patient should also follow up with a PMD for coordination of care and vaccinations as needed given her medical condition of sickle cell anemia. Time Spent with Patient Total time spent providing and/or coordinating discharge services: > 30 min Patient is a young 23 year old female with prior history of sickle cell anemia who presents with acute onset diffuse pain admitted for acute sickle cell pain episode. Patient was admitted where the following treatments and services were provided. Consultation was appreciated by hematology service and patient was started on IVF hydration, pain medication and presscribed antibiotics for CXR showing consolidation concerning for pneumonia as the precipitating issue. Patient during hospitalization with slow but progressive improvement and clinically stable for discharge with the following provisions for follow up care. Patient should complete additional 3 days levaquin antibiotics outpatient along with close follow up with hematology as outpatient. Patient should also follow up with a PMD for coordination of care and vaccinations as needed given her medical condition of sickle cell anemia. 2 - pain is 3/10 which is below baseline pain levels. Will fill prescription for levaquin and increase dose of hydroxyurea to 1500mg qD. Patient to follow up hematology and get referral for Tanya if needed. Quality: VTE Deep Vein Thrombosis/Pulmonary Embolism Present on Admission: No Results Labs on day of discharge: Labs from last 24 hours 07/03/18 07/03/18 06:40 06:40 WBC 14.7 H RBC 2.19 L Hgb 7.2 L Hct 20.7 L* MCV 94.8 MCH 32.8 MCHC 34.6 RDW 20.6 H Plt Count 305 MPV 7.8 Prelim Diff (Auto) Slide review pending Neut % (Auto) 80.4 H Lymph % (Auto) 8.5 L [place] % (Auto) 9.5 H Eos % (Auto) 1.3 Baso % (Auto) 0.3 Neut # (Auto) 11.8 H Lymph # (Auto) 1.2 [place] # (Auto) 1.4 H Eos # (Auto) 0.2 Baso # (Auto) 0.0 WBC Differential Manual diff final Seg Neuts % (Manual) 82 H Band Neuts % (Manual) 3 Lymphocytes % (Manual) 9 Monocytes % (Manual) 6 Abs Neuts (Manual) 12.5 H Nucleated RBCs/100 WBC 33 H Differential Comment . Platelet Estimate Normal Platelet Morphology Normal Basophilic Stippling Faint H Pappenheimer Bodies Present H Sickle Cells 1+ H Target Cells 1+ H [place] Bodies Present H Sodium 137 Potassium 3.8 Chloride 100 Carbon Dioxide 29.8 Anion Gap 7 BUN 5 L Creatinine 0.43 L Estimated GFR Greater than 89 Random Glucose 95 Calcium 8.6 Magnesium 2.0 Lactate Dehydrogenase 614 H Preliminary micro results at discharge 06/30/18 12:06 Aerobic Blood Culture - Preliminary Blood - Peripheral No growth in 3 days Anaerobic Blood Culture - Preliminary No growth in 3 days Impressions ITS Impressions Chest X-Ray 06/29/18 03:18 CONCLUSION: Bilateral infiltrates and small left effusion. Discharge Plan Discharge Disposition Patient Disposition: 01 Discharge Home Discharge Condition Condition: Stable Discharge Order Discharge Orders: Discharge Order (Routine); Ordered 07/04/18 Ordered By: Stephen White Discharge Details Anticipated Discharge Date: 07/04/18 Discharge Comment: hold discharge until i follow up with the patient. i will let you know. thanks! pennie foster [facility] ED Provider: Jordyn Gallegos Primary Care Provider: UNKNOWN, Attending Provider: Stephen White Other Providers: Sona Mcgregor Rxs /Orders / Referrals /Forms Prescriptions: New levofloxacin [Levaquin] 750 mg tablet 750 mg PO DAILY 3 Days Qty: 3 RF: 0 hydroxyurea 500 mg Capsule 1,500 mg PO DAILY 14 Days Qty: 42 RF: 0 Continue aspirin [Aspir-81] 81 mg Tablet,Delayed Release (Dr/Ec) 81 mg PO DAILY RF: 0 folic acid 1 mg Tablet 1 mg PO DAILY RF: 0 deferasirox [Jadenu] 360 mg Tablet 28 mg/kg PO DAILY RF: 0 Discontinued hydroxyurea 500 mg Capsule 500 mg PO DAILY RF: 0 Referrals: UNKNOWN, [Primary Care Provider] - See Instructions (Please call to schedule follow up with your PMD within 7 days of discharge Please call to schedule follow up with your traveling freight agent in 7 days.Please call [facility] to schedule appt. [id number] [facility] [place] [facility] [id number] ) [facility], [Non-Staff] - See Instructions (Call to schedule appointment for PMD follow up and referral for traveling freight agent if insurance does not get approved within 2 weeks. continue prescribed medications in meantime. ) Stand Alone Forms: School Release Discharge Instructions Patient Printed Instructions: Levofloxacin (By mouth), Sickle Cell Crisis (DC) Additional Instructions: please follow up outpatient with your traveling freight agent in 7 days Status ED Status: Left Department
[2018-07-04] MEDS: Sod Chloride 0.9% Inj 1,000 ML IV.CONT SCH ×2 (02:25→06:54)
[2018-07-04 09:45] VITALS: RESP 20
[2018-07-04] MEDS: Heparin - SQ 10,000 UNITS/ML Vial SQ SCH (09:55)
[2018-07-04] MEDS: Folic Acid 1 MG Tablet PO SCH (09:56)
[2018-07-04] MEDS: Senna/Docusate Sodium 8.6/50 MG Tablet PO SCH (09:56)
[2018-07-04] MEDS: Hydroxyurea 500 MG Capsule PO SCH (09:56)
--- NOTE | 2018-07-04 15:43 | P.PNONC ---
Subjective Interval history: Patient lying in bed sleeping, awakens easily to voice. Her grandmother is at the bedside. They state she is waiting on her discharge paperwork and going home. Patient states her pain has improved, she is eager to get back to college. She previously followed with Dr. Mcgregor in the outpatient clinic, however states she is now having insurance issues. Her grandmother is attempting to obtain insurance for her. Recommend she follow-up in the outpatient clinic with hematology. Objective Vital Signs/Intake & Output: Vital Signs 07/03/18 15:44 07/03/18 16:00 07/03/18 20:30 Temperature 97.9 F 98.7 F Pulse Rate 97 H 97 H 91 H Respiratory Rate 15 20 19 Blood Pressure 112/56 L 123/58 L Pulse Oximetry 98 100 07/03/18 21:22 07/04/18 00:40 07/04/18 02:44 Temperature 99.8 F H Pulse Rate 71 80 Respiratory Rate 16 20 Blood Pressure 112/55 L Pulse Oximetry 98 99 99 07/04/18 05:05 07/04/18 08:20 07/04/18 09:10 Temperature 99.0 F 99.5 F Pulse Rate 99 H 93 H Respiratory Rate 19 20 Blood Pressure 131/61 116/56 L Pulse Oximetry 98 97 96 07/04/18 11:45 Temperature 98.7 F Pulse Rate 83 Respiratory Rate 20 Blood Pressure 109/59 L Pulse Oximetry 98 Intake & Output 07/03/18 07/04/18 07/04/18 18:59 06:59 18:59 Intake Total 870 / 870 1000 / 1000 Balance 870 / 870 1000 / 1000 Weight 52 kg Intake: IV 150 / 150 1000 / 1000 NS Inj 1,000 ML @ 100 mls/hr IV 1000 / 1000 .CONT .Q10H [facility] Rx#:[id number] Levaquin 750 mg Premix Inj 150 150 / 150 ML @ 100 mls/hr IV.SIG Q24H [facility] Rx#:[id number] Oral 720 / 720 Other: # Voids 3 # Incontinent Voids 3 Date of Last Bowel Movement 07/03/18 07/03/18 07/03/18 Result Diagrams: 07/03/18 06:40 07/03/18 06:40 Culture Results: Microbiology 06/30/18 12:06 Aerobic Blood Culture - Preliminary Blood - Peripheral No growth in 4 days Anaerobic Blood Culture - Preliminary No growth in 4 days Medications: Active Medications Generic Name Dose Route Start Last Admin Trade Name Dorothy PRN Reason Stop Dose Admin Acetaminophen 650 mg 06/26/18 22:17 06/30/18 05:53 Tylenol PO 650 mg Q4H PRN Administration Temp > 100.4 Acetaminophen 650 mg 06/27/18 13:12 06/27/18 17:47 Tylenol PO 650 mg Q4H PRN Administration SEE LABEL COMMENTS Hydrocodone Bitart/Acetaminophen 1 tab 07/03/18 16:00 07/04/18 10:03 [place] 10/325 PO 1 tab Q6H PRN Administration Pain Scale 7-10 Al Hydroxide/Mg Hydroxide 30 ml 06/26/18 22:17 07/02/18 20:52 Milk Of Magnesia Liq PO 30 ml Q12H PRN Administration Mild Constipation Aspirin 81 mg 06/27/18 12:15 07/04/18 09:56 Ecotrin PO 81 mg DAILY [facility] Administration Folic Acid 1 mg 06/27/18 12:15 07/04/18 09:56 Folic Acid PO 1 mg DAILY [facility] Administration Heparin Sodium (Porcine) 250 unit 06/27/18 22:49 06/29/18 05:40 Heparin Central Flush IV.FLUSH 250 unit PRN PRN Administration Flush Infusapot Heparin Sodium (Porcine) 5,000 units 07/01/18 21:00 07/04/18 09:55 Heparin Inj SQ 5,000 units Q12HR [facility] Administration Hydroxyurea 2,000 mg 06/28/18 09:00 07/04/18 09:56 Hydrea PO 2,000 mg Q48H [facility] Administration Hydroxyurea 1,500 mg 06/29/18 09:00 07/03/18 08:45 Hydrea PO 1,500 mg Q48H [facility] Administration Sodium Chloride 1,000 mls @ 100 mls/hr 06/26/18 22:30 07/04/18 06:54 Ns Inj IV.CONT 100 mls/hr .Q10H [facility] Administration Levofloxacin/Dextrose 150 mls @ 100 mls/hr 06/29/18 17:00 07/03/18 17:35 Levaquin 750 Mg Premix Inj IV.SIG Infused Q24H [facility] Infusion Lactulose 30 ml 06/26/18 22:17 07/02/18 20:52 Lactulose Liq PO 30 ml DAILY PRN Administration SEVERE CONSITIPATION Ondansetron HCl 4 mg 06/26/18 22:17 06/30/18 18:32 Zofran Inj IV.PUSH 4 mg Q6H PRN Administration NAUSEA OR VOMITING Senna/Docusate Sodium 1 tab 06/27/18 09:00 07/04/18 09:56 Maria Isabel-Colace PO 1 tab BID [facility] Administration Sennosides 17.2 mg 06/26/18 22:17 07/02/18 20:53 Senokot PO 17.2 mg Q12H PRN Administration Moderate Constipation Sodium Chloride 2 ml 06/27/18 09:00 07/04/18 09:56 Ns Flush IV.FLUSH 2 ml BID [facility] Administration Sodium Chloride 2 ml 06/26/18 22:17 06/27/18 22:10 Ns Flush IV.FLUSH 2 ml PRN PRN Administration FLUSH AFTER USING IV ACCESS Objective Remarks: GENERAL: Well-nourished, well-developed young female patient, no acute distress. SKIN: Warm and dry. Port to left chest. HEAD: Normocephalic. EYES: No scleral icterus. No injection or drainage. NECK: Supple, trachea midline. CARDIOVASCULAR: +S1/S2 without murmurs. RESPIRATORY: Anterior breath sounds clear, equal bilaterally. Nonlabored at rest. GASTROINTESTINAL: Abdomen soft, non-tender, nondistended. EXTREMITIES: No cyanosis, or edema. MUSCULOSKELETAL: Adequate muscle tone. NEUROLOGICAL: No obvious focal deficit. Sleeping on approach, awakens easily to voice, alert and oriented x3. PSYCHIATRIC: Appropriate mood and affect; insight and judgment normal. 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 She is on Jadenu and Hydrea on an outpatient basis. 1. Fevers, resolved. Chest x-ray revealed bilateral infiltrates, continues on Levaquin. Blood cultures with no growth times 4 days. 2. Sickle cell pain crisis, improving. 3. Patient cleared for discharge from a hematologic standpoint. Recommend follow-up with hematology in the outpatient setting. - Attending Statement The exam, history, and the medical decision-making described in the above note were completed with the assistance of the mid-level provider. I reviewed and agree with the findings presented. I attest that I had a [id number] encounter with the patient on the same day, and personally performed and documented my assessment and findings in the medical record. Patient states that her pain is better She is ready to go home She wants to go back to college and resume her studies Patient is cleared to discharge Sign off Available as needed
[2018-07-04 16:43] VITALS: BP 106/55; PULSE 93; TEMP 98.9; O2SAT 99
== END 2018-07-04 16:51 | disposition home or self-care (01) | DRG 812 ==
LOC: NEDA 19:25 → NEPE 19:25 → NEPHCDU 06-27 00:25 → N05 06-27 21:26
PROVIDERS: ADMIT Internal Medicine; ATTEND Internal Medicine
CPT/HCPCS: 36430; 71010; 71045; 80048; 80053; 81001; 83605; 83615; 83735; 85014; 85018; 85025; 85044; 86850; 86900; 86901; 86923; 87040; 90761; 90774; 90775; 90776; 90784; 94640; 94664; 94665; 96361; 96374; 96375; 96376; 99285; C8952; G0378; J1170; J1200; J1642; J1644; J1956; J2270; J2405; J7030; J7050; P9016